=== PATIENT | female | born 1955 | race Caucasian/White ===

== ENCOUNTER 2017-03-16 11:13 | Emergency (ER) | payer BC ==
[~2017-03-16 11:13] MED LIST: INSU100V6 SQ; LEVO500T2 PO
[2017-03-16] MEDS ORDERED: PROM25TA14 PO (12:11)
[2017-03-16] MEDS ORDERED: CLIN300C11 PO (12:11)
[2017-03-16] MEDS ORDERED: HYDR-3820 PO (12:11)
[2017-03-16] MEDS ORDERED: FERR-84 PO (12:11)
[2017-03-16] MEDS ORDERED: BACL10TA PO (12:11)
== END 2017-03-16 11:47 | disposition left against medical advice (07) ==
LOC: EDUNIT# 11:13 → ER 11:15
DX: M54.5 Low back pain (principal); Z53.21 Procedure and treatment not carried out due to patient leaving prior to being seen by health care provider

== ENCOUNTER 2017-03-16 11:45 | Inpatient (IN) | payer OTHER, BC ==
[~2017-03-16] VITALS: Ht 154.9 cm; Wt 122.0 kg
[2017-03-16] MEDS ORDERED: HYDR-3820 PO (12:11)
[2017-03-16] MEDS ORDERED: BACL10TA PO (12:11)
[2017-03-16] MEDS ORDERED: PROM25TA14 PO (12:11)
[2017-03-16] MEDS ORDERED: CLIN300C11 PO (12:11)
[2017-03-16] MEDS ORDERED: FERR-84 PO (12:11)
[2017-03-16] MEDS ORDERED: CEFEPIME INJECTION 2,000 MG in NS (IVPB) 50 ML IV SCH (12:15)
[2017-03-16] MEDS ORDERED: LACTULOSE SYRUP 10GM/15ML (ENULOSE) 30ML UDC PO PRN (12:15)
[2017-03-16] MEDS ORDERED: VANCOMYCIN INJECTION 1,000 MG in NS (IVPB) 250 ML IV SCH (12:15)
[2017-03-16] MEDS ORDERED: ACETAMINOPHEN 500 MG TAB (TYLENOL) PO PRN (12:15)
[2017-03-16 12:45] LABS: BASOPHILS % (AUTO) 0 % (0-10); EOSINOPHILS # (AUTO) 0.2 10^3/uL (0.0-0.3); EOSINOPHILS % (AUTO) 2 % (0-10); LYMPHOCYTES # (AUTO) 1.2 X 10^3 (1.0-4.0); LYMPHOCYTES % (AUTO) 11 % (12-44); MEAN CORPUSCULAR HEMOGLOBIN 28 PG (25-34); MEAN CORPUSCULAR HGB CONC 31 G/DL (32-36); MEAN CORPUSCULAR VOLUME 89 FL (80-99); MEAN PLATELET VOLUME 8.2 FL (7.4-10.4); MONOCYTES # (AUTO) 0.8 X 10^3 (0.0-1.0); MONOCYTES % (AUTO) 8 % (0-12); NEUTROPHILS # (AUTO) 8.2 X 10^3 (1.8-7.8); NEUTROPHILS % (AUTO) 79 % (42-75); PLATELET COUNT 577 10^3/uL (130-400); RED BLOOD COUNT 3.27 10^6/uL (4.35-5.85); RED CELL DISTRIBUTION WIDTH 12.8 % (10.0-14.5); WHITE BLOOD COUNT 10.4 10^3/uL (4.3-11.0)
[2017-03-16 13:05] LABS: ALANINE AMINOTRANSFERASE 13 U/L (0-55); ALBUMIN 3.3 G/DL (3.2-4.5); ANION GAP 14 MMOL/L (5-14); ASPARTATE AMINO TRANSFERASE 13 U/L (5-34); BILIRUBIN,TOTAL 0.3 MG/DL (0.1-1.0); BLOOD UREA NITROGEN 11 MG/DL (7-18); BUN/CREATININE RATIO 15; CALCIUM 9.3 MG/DL (8.5-10.1); CARBON DIOXIDE 23 MMOL/L (21-32); CHLORIDE 102 MMOL/L (98-107); CREATININE SERUM 0.71 MG/DL (0.60-1.30); GFR ESTIMATED > 60; GLUCOSE 132 MG/DL (70-105); POTASSIUM 3.4 MMOL/L (3.6-5.0); SODIUM 139 MMOL/L (135-145); TOTAL PROTEIN 7.1 G/DL (6.4-8.2)
[2017-03-16 13:16] LABS: ERYTHROCYTE SEDIMENTATION RATE > 140 MM/HR (0-30)
[2017-03-16] MEDS ORDERED: MAGNESIUM 1 GM/100 ML IVPB 100 ML IV NR (13:22)
--- NOTE | 2017-03-16 13:23 | Diagnostic Imaging Report ---
INDICATION: PICC line placement. Portable chest 1:16 PM. Left upper extremity PICC line tip projects over the SVC at the cavoatrial junction. Heart size and pulmonary vascularity are normal. Lungs are clear. There are no effusions or pneumothoraces. IMPRESSION: No acute abnormalities in the chest. Dictated by: Dictated on workstation # [id number]
[2017-03-16 13:34] LABS: BILIRUBIN,URINE NEGATIVE (NEGATIVE); KETONES,URINE NEGATIVE (NEGATIVE); LEUKOCYTE ESTERASE ,URINE 1+ (NEGATIVE); NITRITE,URINE NEGATIVE (NEGATIVE); PH,URINE 8 (5-9); PROTEIN,URINE 1+ (NEGATIVE); UROBILINOGEN,URINE NORMAL (NORMAL)
[2017-03-16] MEDS: fentaNYL INJECTION 100 MCG/2 ML AMP IVP PRN ×5 (13:34→23:27)
[2017-03-16] MEDS: HYDROcodone/APAP 5 MG/325 MG (LORTAB) TAB PO PRN ×2 (13:34→20:15)
[2017-03-16 13:45] LABS: WBC,URINE RARE /HPF
[2017-03-16] MEDS: BACLOFEN 10 MG (LIORESAL) TAB PO SCH ×2 (14:16→20:15)
[2017-03-16] MEDS: POTASSIUM CL 10MEQ/50ML IVPB 50 ML IV SCH ×4 (14:17→17:59)
[2017-03-16] MEDS: NS IV 1000 ML 1,000 ML IV SCH (14:17)
[2017-03-16] MEDS ORDERED: VANCOMYCIN 2000 MG/NS 500 ML IVPB IV NR ×2 (14:30)
[2017-03-16] MEDS: ALPRAZolam 0.25 MG (XANAX) TAB PO PRN (15:52)
[2017-03-16 16:37] VITALS: BP 158/70
[2017-03-16] MEDS: inSUlin ASPART (NovoLOG) 1 UNIT/0.01 ML (CHARGE PER UNIT) SC SCH ×2 (16:46→21:14)
[2017-03-16] MEDS: IRON SUCROSE INJECTION 200 MG in NS (IVPB) 100 ML IV SCH (18:22)
[2017-03-16 19:57] VITALS: BP 160/78
--- NOTE | 2017-03-16 20:13 | History & Physicial ---
History of Present Illness History of Present Illness Reason for visit/HPI 61 y/o white female had lumbar fusion at [facility] on 03/01/17. She went home and was doing ok, then developed worsening pain and drainage. She was seen in [place] over the weekend and started on Keflex, she presents to the office today with still intolerable pain. She is having increased difficulty getting up and around. Date of Admission March 16, 2017 at 11:45 I consulted on this patient on 03/16/17 10:20 Attending Physician Kaitlynn Villalta MD Admitting Physician Heidi,Local Physician Consult Allergies and Home Medications Allergies Coded Allergies: cephalexin (Verified Allergy, Severe, RASH, 08/16/16) morphine (Verified Allergy, Severe, HIVES, 08/16/16) Penicillins (Verified Allergy, Unknown, 08/16/16) Home Medications Baclofen 10 Mg Tablet, 10 MG PO TID, (Reported) Clindamycin HCl 300 Mg Capsule, 300 MG PO Q6H for 10 Days, #40 (Reported) 10 DAY SUPPLY FILLED 03-12-17 Ferrous Sulfate 325 Mg Tablet, 325 MG PO HS, (Reported) Hydrocodone/Acetaminophen 1 Each Tablet, 1-2 TAB PO Q4H PRN for PAIN-MODERATE, ( Reported) Insulin Glargine,Hum.rec.anlog 100 Unit/1 Ml Vial, 30 UNIT SQ HS, (Reported) Promethazine HCl 25 Mg Tablet, 25 MG PO Q6H PRN for NAUSEA/VOMITING-2ND LINE, ( Reported) Past Zhltgsv-Wfcrfc-Hdovtj Hx Patient Social History Marrital Status: Alcohol Use: Denies Use Recreational Drug Use: No Smoking Status: Former Smoker Physical Abuse Screen: No Sexual Abuse: No Recent Foreign Travel: No Contact w/other who traveled: No Recent Hopitalizations: Yes ([place] [employer]) Recent Infectious Disease Expo: No Seasonal Allergies Seasonal Allergies: Yes (seasonal allergies, cat, grass) Surgeries HX Surgeries: Yes (TUBAL PREG, ) Surgeries: Appendectomy, Gallbladder, Hysterectomy Respiratory Hx Respiratory Disorders: Yes Cardiovascular Hx Cardiovascular Disorders: No Neurological Hx Neurological Disorders: No Genitourinary Hx Genitourinary Disorders: No Genitourinary Disorders: Kidney Stones Gastrointestinal Hx Gastrointestinal Disorders: No Gastrointestinal Disorders: Hiatal Hernia Musculoskeletal Hx Musculoskeletal Disorders: No Musculoskeletal Disorders: Arthritis, Chronic Back Pain Endocrine Hx Endocrine Disorders: Yes Endocrine Disorders: Diabetes, Insulin dep HEENT HX ENT Disorders: No Cancer Hx Cancer: No Psychosocial Hx Psychiatric Problems: No Family Medical History Significant Family History: No Pertinent Family Hx Constitutional: malaise, weakness EENTM: no symptoms reported Respiratory: no symptoms reported Cardiovascular: no symptoms reported Gastrointestinal: loss of appetite, nausea Genitourinary: no symptoms reported : No Musculoskeletal: back pain, joint pain, muscle stiffness, muscle cramps, muscle weakness Skin: no symptoms reported Psychiatric/Neurological: No Symptoms Reported Physical Exam Vital Signs Vital Sign - Last 12Hours 03/16/17 16:37 Temp 97.7 Pulse 103 Resp 12 B/P (MAP) 158/70 Pulse Ox 95 Capillary Refill : General Appearance: Moderate Distress Eyes: Bilateral Eye Normal Inspection Neck: Full Range of Motion Respiratory: Chest Non Tender, Normal Breath Sounds, No Accessory Muscle Use, No Respiratory Distress Cardiovascular: Regular Rate, Rhythm Gastrointestinal: Normal Bowel Sounds, Soft Back: Muscle Spasm, Vertebral Tenderness, Other (Serosanginous drainage from lumbar incision.) Extremity: Normal Capillary Refill Neurologic/Psychiatric: Alert, Oriented x3, No Motor/Sensory Deficits Assessment/Plan Assessment and Plan S/P Lumbar Fusion Lumbar Wound drainage possible wound infection Morbid Obesity BMI>50 Diabetes Asthma Plan Irrigation debridement tomorrow. Problems: Clinical Quality Measures DVT/VTE Risk/Contraindication: Risk Factor Score Per Nursin RFS Level Per Nursing on Admit: 4+=Very High Contraindications-Pharm: Other *list below* Other: needs surgery KAITLYNN VILLALTA MD March 16, 2017 20:13
[2017-03-16] MEDS: FERROUS SULF 325 MG (IRON) TAB PO SCH (20:15)
[2017-03-16] MEDS: POLYETHYLENE GLYCOL 17 GM (MIRALAX) PACK PO SCH (20:16)
[2017-03-16] MEDS ORDERED: BACLOFEN 10 MG (LIORESAL) TAB PO SCH (21:00)
[2017-03-16] MEDS: inSUlin DETERMIR 1 UNIT/0.01 ML (LEVEMIR) CHARGE PER UNIT SQ SCH (21:13)
[2017-03-16 23:15] VITALS: BP 177/88
[2017-03-17] MEDS: ONDANSETRON 4 MG/2 ML (SDV) Z0FRAN IVP PRN ×2 (00:06→20:52)
[2017-03-17] MEDS: CEFEPIME 2 GM/NS 50 ML IVPB IV SCH ×4 (00:25→12:03)
[2017-03-17] MEDS: fentaNYL INJECTION 100 MCG/2 ML AMP IVP PRN ×8 (00:25→19:58)
[2017-03-17] MEDS ORDERED: VANCOMYCIN 1500 MG/NS 500 ML IVPB IV SCH ×2 (02:00)
[2017-03-17] MEDS: HYDROmorphone (DILAUDID) 2 MG/ML VIAL IVP PRN ×8 (02:07→21:58)
[2017-03-17 04:00] VITALS: BP 139/83
[2017-03-17 06:10] LABS: BASOPHILS % (AUTO) 0 % (0-10); EOSINOPHILS # (AUTO) 0.3 10^3/uL (0.0-0.3); EOSINOPHILS % (AUTO) 4 % (0-10); LYMPHOCYTES # (AUTO) 1.3 X 10^3 (1.0-4.0); LYMPHOCYTES % (AUTO) 16 % (12-44); MEAN CORPUSCULAR HEMOGLOBIN 28 PG (25-34); MEAN CORPUSCULAR HGB CONC 31 G/DL (32-36); MEAN CORPUSCULAR VOLUME 90 FL (80-99); MEAN PLATELET VOLUME 8.2 FL (7.4-10.4); MONOCYTES # (AUTO) 0.8 X 10^3 (0.0-1.0); MONOCYTES % (AUTO) 10 % (0-12); NEUTROPHILS # (AUTO) 5.4 X 10^3 (1.8-7.8); NEUTROPHILS % (AUTO) 70 % (42-75); PLATELET COUNT 529 10^3/uL (130-400); RED BLOOD COUNT 3.21 10^6/uL (4.35-5.85); RED CELL DISTRIBUTION WIDTH 13.6 % (10.0-14.5); WHITE BLOOD COUNT 7.7 10^3/uL (4.3-11.0)
[2017-03-17 06:18] LABS: ALANINE AMINOTRANSFERASE 10 U/L (0-55); ALBUMIN 2.8 G/DL (3.2-4.5); ANION GAP 10 MMOL/L (5-14); ASPARTATE AMINO TRANSFERASE 12 U/L (5-34); BILIRUBIN,TOTAL 0.2 MG/DL (0.1-1.0); BLOOD UREA NITROGEN 9 MG/DL (7-18); BUN/CREATININE RATIO 14; CALCIUM 8.7 MG/DL (8.5-10.1); CARBON DIOXIDE 23 MMOL/L (21-32); CHLORIDE 110 MMOL/L (98-107); CREATININE SERUM 0.64 MG/DL (0.60-1.30); GFR ESTIMATED > 60; GLUCOSE 127 MG/DL (70-105); POTASSIUM 3.6 MMOL/L (3.6-5.0); SODIUM 143 MMOL/L (135-145); TOTAL PROTEIN 6.1 G/DL (6.4-8.2)
[2017-03-17] MEDS: inSUlin ASPART (NovoLOG) 1 UNIT/0.01 ML (CHARGE PER UNIT) SC SCH ×3 (06:29→19:49)
[2017-03-17 08:37] VITALS: BP 156/94
[2017-03-17] MEDS: POLYETHYLENE GLYCOL 17 GM (MIRALAX) PACK PO SCH ×2 (09:00→22:23)
[2017-03-17] MEDS: BACLOFEN 10 MG (LIORESAL) TAB PO SCH ×3 (09:00→21:57)
[2017-03-17] MEDS: NS IV 1000 ML 1,000 ML IV SCH ×2 (10:09→20:52)
--- NOTE | 2017-03-17 10:21 | Consultation-Hospitalist ---
HPI History of Present Illness: HPI/Chief Complaint CC: Drainage from lumbar spinal surgical site HPI: This is a 61 yoWF pt of Brad Andrade known to me from [facility] admission for lumbar spine surgery on 03/01/17. Pt has had a very slow recovery and began having redness and drainage. Pt was started on Keflex in [place] ER Tuesday and seen by Dr. Villalta in his office yesterday. She was a direct admit to [facility]. PICC line was placed and pt was empirically started on Vanc and Cefepime. WBC 7.7, Hgb 7.0, ESR 140, iron 12. 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 Lungs sound perfect Labs were discussed with the pt and she was informed that she will continue having iron treatments Pt has been having bowel movements Pt was informed that she will continue to antibiotics Pt states that she has not been comfortable and this has inhibited her movement. Pt states that she has been sticking to the bed Pt states that she has been sleeping well Scribed by Marion Miguel under the direct supervision of Dr. Cody. Source: patient, caregiver Exam Limitations: no limitations Date Seen 03/17/17 Attending Physician Ilir Villalta MD PCP No,Local Physician Referring Physician Date of Admission March 16, 2017 at 11:45 Home Medications & Allergies Home Medications Reviewed patient Home Medication Reconciliation Form Allergies Allergies Coded Allergies cephalexin (Verified Allergy, Severe, RASH, 08/16/16) morphine (Verified Allergy, Severe, HIVES, 08/16/16) Penicillins (Verified Allergy, Unknown, 08/16/16) Past Bfpnbfa-Qddzlw-Exssct Hx Patient Social History Marrital Status: Employed/Student: unemployed Alcohol Use: Denies Use Recreational Drug Use: No Smoking Status: Former Smoker Physical Abuse Screen: No Sexual Abuse: No Recent Foreign Travel: No Contact w/other who traveled: No Recent Hopitalizations: Yes ([place] [employer]) Recent Infectious Disease Expo: No Seasonal Allergies Seasonal Allergies: Yes (seasonal allergies, cat, grass) Surgeries HX Surgeries: Yes (TUBAL PREG, ) Surgeries: Appendectomy, Gallbladder, Hysterectomy Respiratory Hx Respiratory Disorders: Yes Respiratory Disorders: COPD, Sleep Apnea Cardiovascular Hx Cardiovascular Disorders: No Neurological Hx Neurological Disorders: No Genitourinary Hx Genitourinary Disorders: Yes Genitourinary Disorders: Kidney Stones Gastrointestinal Hx Gastrointestinal Disorders: Yes Gastrointestinal Disorders: Gastroesophageal Reflux, Hiatal Hernia Musculoskeletal Hx Musculoskeletal Disorders: Yes Musculoskeletal Disorders: Arthritis, Chronic Back Pain Endocrine Hx Endocrine Disorders: Yes Endocrine Disorders: Diabetes, Insulin dep HEENT HX ENT Disorders: No Cancer Hx Cancer: No Psychosocial Hx Psychiatric Problems: No Family Medical History Significant Family History: No Pertinent Family Hx Review of Systems Constitutional: see HPI EENTM: no symptoms reported Respiratory: no symptoms reported Cardiovascular: no symptoms reported Gastrointestinal: no symptoms reported Genitourinary: no symptoms reported Musculoskeletal: back pain Skin: see HPI Psychiatric/Neurological: No Symptoms Reported Physical Exam Physical Exam Vital Signs Vital Sign - Last 12Hours 03/16/17 16:37 Temp 97.7 Pulse 103 Resp 12 B/P (MAP) 158/70 Pulse Ox 95 Capillary Refill : General Appearance: No Apparent Distress, WD/WN, Chronically ill, Obese Eyes: Bilateral Eye Normal Inspection, Bilateral Eye PERRL HEENT: PERRL/EOMI, Normal ENT Inspection, Pharynx Normal Neck: Full Range of Motion, Normal Inspection, Non Tender, Supple, Carotid Bruit Respiratory: Chest Non Tender, Lungs Clear, Normal Breath Sounds, No Accessory Muscle Use, No Respiratory Distress Cardiovascular: Regular Rate, Rhythm, No Edema, No Gallop, No JVD, No Murmur, Normal Peripheral Pulses Gastrointestinal: Normal Bowel Sounds, No Organomegaly, No Pulsatile Mass, Non Tender, Soft Back: Decreased Range of Motion, Other (dressing intact spine) Extremity: Normal Capillary Refill, Normal Inspection, Normal Range of Motion, Non Tender, No Calf Tenderness, No Pedal Edema Neurologic/Psychiatric: Alert, Oriented x3, No Motor/Sensory Deficits, Normal Mood/Affect Skin: Normal Color, Warm/Dry Lymphatic: No Adenopathy Results Results/Procedures Lab Laboratory Tests 03/16/17 12:36 03/17/17 05:08 Assessment/Plan Admission Diagnosis Assessment: Lumbar spine surgical site drainage and inflammation empirically covering with IV antibiotics POD # 16 in need of I&D today Slow recovery and overall chronic debilitation Obstructive sleep apnea noncompliant with the Pap Hiatal hernia GERD History of peptic ulcers Osteoarthritis next number diabetes mellitus Chronic heart murmur Iron deficiency anemia COPD Assessment and Plan Plan: Possible disposition Tuesday once culture are completed Continue antibiotics empiric coverage Check into obtaining a firmer mattress after surgery Check labs in am Rehab eval I&D today IV iron Clinical Quality Measures DVT/VTE Risk/Contraindication: Risk Factor Score Per Nursin RFS Level Per Nursing on Admit: 4+=Very High Contraindications-Pharm: Other *list below* Other: needs surgery SARAH CODY DO Mar 17, 2017 10:21
[2017-03-17] MEDS ORDERED: LACTATED RINGERS 1,000 ML IV PRN (11:08)
[2017-03-17 11:50] VITALS: BP 141/77
[2017-03-17] MEDS ORDERED: VANCOMYCIN 1000 MG/VIAL ONE (12:46)
[2017-03-17] MEDS ORDERED: GENTAMICIN 40 MG/ML 2 ML INJ SDV ONE ×2 (12:46→17:05)
[2017-03-17] MEDS ORDERED: TROUGH ORDER-PHARMACY XX NR (13:00)
[2017-03-17] MEDS ORDERED: VANCOMYCIN 1250 MG/NS 250 ML IVPB IV SCH ×2 (14:00)
[2017-03-17] MEDS ORDERED: MIDAZOLAM 2 MG/2 ML (VERSED) VIAL ONE (14:46)
[2017-03-17] MEDS ORDERED: proPOfol 200 MG/20 ML (DIPRIVAN) VIAL IV ONE (14:46)
[2017-03-17] MEDS ORDERED: fentaNYL INJECTION 100 MCG/2 ML AMP ONE (14:46)
[2017-03-17] MEDS ORDERED: SEVOFLURANE (ULTANE) 15 ML INHAL SOLN ONE ×2 (14:46→17:31)
[2017-03-17] MEDS ORDERED: ONDANSETRON 4 MG/2 ML (SDV) Z0FRAN ONE (14:46)
[2017-03-17] MEDS ORDERED: ROCURONIUM 50 MG/5 ML (ZEMURON) VIAL IV ONE (14:46)
[2017-03-17] MEDS ORDERED: LACTATED RINGERS 1,000 ML IV ONE (14:46)
[2017-03-17] MEDS ORDERED: LIDOCAINE PF 2% 5 ML (XYLOCAINE) VIAL ONE (14:46)
[2017-03-17 15:25] VITALS: BP 156/77
[2017-03-17] MEDS ORDERED: MEPERIDINE (DEMEROL) INJ 50 MG/ML ONE (15:57)
--- NOTE | 2017-03-17 16:39 | Progress Note-Pre Operative ---
Pre-Operative Progress Note H&P Reviewed The H&P was reviewed, patient examined and no changes noted. Date H&P Reviewed: Mar 17, 2017 Time H&P Reviewed: 16:39 Pre-Operative Diagnosis: Lumbar Wound Infection KAITLYNN LAFLEUR MD Mar 17, 2017 4:39 pm
--- NOTE | 2017-03-17 17:50 | Progress Note-Post Operative ---
Post-Operative Progess Note Surgeon (s)/Network Engineering Advisor (s) Surgeon KAITLYNN LAFLEUR MD Network Engineering Advisor: Jason Alcala Pre-Operative Diagnosis Lumbar Wound Infection Post-Operative Diagnosis Same Procedure & Operative Findings Date of Procedure 03/17/17 Procedure Performed/Findings Irrigation and Debridement of Posterior lumbar wound. Turbid Fluid Anesthesia Type GETA Estimated Blood Loss Estimated blood loss (mL): Minimal Specimens/Packing Specimens Removed Cultures Packing: Kerlix superficial KAITLYNN LAFLEUR MD Mar 17, 2017 5:50 pm
[2017-03-17] MEDS ORDERED: ONDANSETRON 4 MG/2 ML (SDV) Z0FRAN IVP PRN (18:00)
[2017-03-17] MEDS: fentaNYL INJECTION 100 MCG/2 ML AMP ONE (18:26)
[2017-03-17] MEDS: MEPERIDINE (DEMEROL) INJ 50 MG/ML IVP PRN ×2 (18:35→18:41)
[2017-03-17 19:00] VITALS: BP 187/83
[2017-03-17] MEDS: FERROUS SULF 325 MG (IRON) TAB PO SCH (21:57)
[2017-03-17] MEDS: ALPRAZolam 0.25 MG (XANAX) TAB PO PRN (21:57)
[2017-03-17] MEDS: inSUlin DETERMIR 1 UNIT/0.01 ML (LEVEMIR) CHARGE PER UNIT SQ SCH (23:27)
[2017-03-18] MEDS: HYDROmorphone (DILAUDID) 2 MG/ML VIAL IVP PRN ×8 (00:02→22:55)
[2017-03-18] MEDS: inSUlin ASPART (NovoLOG) 1 UNIT/0.01 ML (CHARGE PER UNIT) SC SCH ×5 (00:33→21:20)
[2017-03-18 00:52] VITALS: BP 173/84
[2017-03-18] MEDS: CEFEPIME 2 GM/NS 50 ML IVPB IV SCH ×4 (01:02→12:44)
[2017-03-18] MEDS: HYDROcodone/APAP 5 MG/325 MG (LORTAB) TAB PO PRN ×5 (02:06→22:48)
[2017-03-18] MEDS: VANCOMYCIN 1250 MG/NS 250 ML IVPB IV SCH ×4 (02:22→13:56)
[2017-03-18 04:00] VITALS: BP 129/72
--- NOTE | 2017-03-18 05:47 | OPERATIVE REPORT ---
DATE OF SERVICE: 03/17/2017 PREOPERATIVE DIAGNOSES: Suspected lumbar wound infection, diabetes, morbid obesity with BMI greater than 50. POSTOPERATIVE DIAGNOSES: Suspected lumbar wound infection, diabetes, morbid obesity with BMI greater than 50, pathology pending. PROCEDURES PERFORMED: Irrigation and debridement of lumbar wound superficial and deep posterior. DATE AND TIME OF SURGERY: Please see anesthesia record. SURGEON: Ilir Villalta M.D. SECURITY INFRASTRUCTURE ENGINEER: REYNALDO Perez. ROLE OF BOMB SQUAD COMMANDER: Aid in retraction in the procedure, suction of neural elements, and wound closure. ANESTHESIA: General endotracheal. ESTIMATED BLOOD LOSS: Minimal. INTRAVENOUS FLUID: Please see anesthesia record. ANTIBIOTICS: Ancef. COMPLICATIONS: None. INDICATIONS OF PROCEDURE: The patient is a 61-year-old female who had a previous lumbar fusion. She has developed wound drainage, increasing pain concerning for infection. After risks, benefits, and alternatives discussed, she would like to proceed with wound exploration and debridement. DESCRIPTION OF PROCEDURE: The patient was taken to the preoperative holding area and brought back to the operative suite after adequate induction of general anesthetic. Preoperative antibiotics were given, turned prone on the Kristian table with careful padding to all extremities, sterilely prepped and draped posterior lumbar spine. Attention was directed to the midline. Incision was made overlying the previous incision which was opened. Turbid fluid was encountered. It was sent for cultures. Wound was then debrided and pulse lavage irrigation was utilized and then the deep fascia was opened and further fluid was found deep to the hardware. Cultures were obtained of this as well. Pulse lavage irrigation of the entire thing, curetting of any devitalized tissue muscle, all the way down to the fusion bed. Once debridement was sufficient, further pulse lavage irrigation with gentamicin, enhanced irrigant was utilized and then vancomycin powder was packed deep. The deep fascia was closed with 0 PDS suture. The superficial wound was packed and the patient was transferred to the recovery room in stable condition having tolerated the procedure well. Job ID: [id number] DocumentID: [id number] Dictated Date: 03/17/2017 17:48:24 Rubber Molder Date: 03/18/2017 03:31:52 Dictated By: ILIR VILLALTA MD [facility]
[2017-03-18 06:55] LABS: BASOPHILS % (AUTO) 0 % (0-10); EOSINOPHILS # (AUTO) 0.4 10^3/uL (0.0-0.3); EOSINOPHILS % (AUTO) 4 % (0-10); LYMPHOCYTES % (AUTO) 12 % (12-44); MEAN CORPUSCULAR HEMOGLOBIN 28 PG (25-34); MEAN CORPUSCULAR HGB CONC 30 G/DL (32-36); MEAN CORPUSCULAR VOLUME 92 FL (80-99); MEAN PLATELET VOLUME 8.2 FL (7.4-10.4); MONOCYTES # (AUTO) 0.8 X 10^3 (0.0-1.0); MONOCYTES % (AUTO) 10 % (0-12); NEUTROPHILS # (AUTO) 6.2 X 10^3 (1.8-7.8); NEUTROPHILS % (AUTO) 74 % (42-75); PLATELET COUNT 432 10^3/uL (130-400); RED BLOOD COUNT 3.04 10^6/uL (4.35-5.85); RED CELL DISTRIBUTION WIDTH 13.7 % (10.0-14.5); WHITE BLOOD COUNT 8.4 10^3/uL (4.3-11.0)
[2017-03-18 07:09] LABS: ALANINE AMINOTRANSFERASE 9 U/L (0-55); ALBUMIN 2.5 G/DL (3.2-4.5); ANION GAP 7 MMOL/L (5-14); ASPARTATE AMINO TRANSFERASE 10 U/L (5-34); BILIRUBIN,TOTAL 0.3 MG/DL (0.1-1.0); BLOOD UREA NITROGEN 7 MG/DL (7-18); BUN/CREATININE RATIO 12; CARBON DIOXIDE 23 MMOL/L (21-32); CHLORIDE 111 MMOL/L (98-107); CREATININE SERUM 0.59 MG/DL (0.60-1.30); GFR ESTIMATED > 60; GLUCOSE 98 MG/DL (70-105); POTASSIUM 3.6 MMOL/L (3.6-5.0); SODIUM 141 MMOL/L (135-145); TOTAL PROTEIN 5.6 G/DL (6.4-8.2)
[2017-03-18 07:50] VITALS: BP 133/79
[2017-03-18] MEDS: POLYETHYLENE GLYCOL 17 GM (MIRALAX) PACK PO SCH ×2 (08:06→20:08)
[2017-03-18] MEDS: BACLOFEN 10 MG (LIORESAL) TAB PO SCH ×3 (08:06→20:07)
[2017-03-18] MEDS: meTOprolol TARTRATE 25 MG (LOPRESSOR) TABLET PO SCH ×2 (09:31→20:07)
[2017-03-18] MEDS: diphenhydrAMINE 50 MG/ML INJ (BENADRYL) IVP PRN ×2 (10:09→19:14)
--- NOTE | 2017-03-18 11:00 | Progress Note-Hospitalist ---
Progress Note HPI/CC on Admission CC: Drainage from lumbar spinal surgical site HPI: This is a 61 yoWF pt of Brad Andrade known to me from [facility] admission for lumbar spine surgery on 03/01/17. Pt has had a very slow recovery and began having redness and drainage. Pt was started on Keflex in [place] ER Tuesday and seen by Dr. Villalta in his office yesterday. She was a direct admit to [facility]. PICC line was placed and pt was empirically started on Vanc and Cefepime. WBC 7.7, Hgb 7.0, ESR 140, iron 12. 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 Lungs sound perfect Labs were discussed with the pt and she was informed that she will continue having iron treatments Pt has been having bowel movements Pt was informed that she will continue to antibiotics Pt states that she has not been comfortable and this has inhibited her movement. Pt states that she has been sticking to the bed Pt states that she has been sleeping well Scribed by Marion Miguel under the direct supervision of Dr. Cody. Progress Notes/Assess & Plan Date Seen 03/18/17 Admission Dx/Process Assessment: Lumbar spine surgical site drainage and inflammation empirically covering with IV antibiotics POD # 16 in need of I&D today Slow recovery and overall chronic debilitation Obstructive sleep apnea noncompliant with the Pap Hiatal hernia GERD History of peptic ulcers Osteoarthritis next number diabetes mellitus Chronic heart murmur Iron deficiency anemia COPD Diagonsis/Assessment & Plan Chart Review: Wound Culture: gram positive rods and cocci PICC Line Op Report: superficial wound, packed No Fever Vital stable WBC 8.4 Hgb 8.4 CMP normal Review: Ambar Continue culture treatment Six weeks treatment recommended for IV antibiotics Rehab on Tuesday or a possible penitentiary Regroup on Tuesday aircraft quality control inspector: HR a little high today, possibly from moving around in the bed She is not septic I am going to heplock her fluid I would like to do some Lopressor PO Patient Interview: Pt still sore from having a bath, feeling better Pt states that sometimes she aggravates the nursing staff because of what she needs I explained that this was a superficial wound and that she will be on antibiotics until the culture is back Pt will slowly be ambulated up and down the hallway today to get her up and moving Lungs were clear to auscultation bilaterally Physical Exam stable Pt states that she has been working to roll back and forth while she is bed She feels that she is improving and that the nurses believe the same The pt believes that she is having a hard time She believes that she will need some rehab and expects to be here over the weekend and follow-up with rehab I explained that the lab work looked good today and that we will continue on the current treatment until the culture comes back AFVSS, Pleasant, improved overall Tachycardic 110 regular, CTAB no rales noted No edema Assessment: Lumbar spine surgical site drainage and inflammation empirically covering with IV antibiotics POD # 17 s/p I&D yesterday POD # 1 Slow recovery and overall chronic debilitation Obstructive sleep apnea noncompliant with CPAP Hiatal hernia GERD History of peptic ulcers Osteoarthritis next number diabetes mellitus Chronic heart murmur Iron deficiency anemia COPD Tachycardia likely due to deconditioning Plan: Possible disposition Tuesday once culture are completed Continue antibiotics empiric coverage Check labs in am Rehab eval IV iron PT/OT Get up and moving Lopressor PO - Metoprolol 25 BID IV Benadryl for itching prn Scribed by Marion Miguel under the direct supervision of Dr. Cody. SARAH CODY DO Mar 18, 2017 11:00
[2017-03-18 12:43] VITALS: BP 163/83
[2017-03-18] MEDS: IRON SUCROSE INJECTION 200 MG in NS (IVPB) 100 ML IV SCH (13:20)
--- NOTE | 2017-03-18 15:08 | Physical Therapy Evaluation ---
PT Evaluation-General Medical Diagnosis Admission Date March 16, 2017 at 11:45 Medical Diagnosis: abscess lumbar spine Onset Date: March 16, 2017 Therapy Diagnosis Therapy Diagnosis: debility Height/Weight Height (Feet): 5 Height (Inches): 1.00 Weight (Pounds): 261 Weight (Ounces): 6.0 Precautions Precautions/Isolations: Fall Prevention, Standard Precautions Weight Bear Status Weight Bearing Restriction: Weight Bearing/Tolerated Location Restriction: LE Bilateral Referral Physician: Dave Reason for Referral: Evaluation/Treatment Medical History Pertinent Medical History: COPD, DM, GERD Additional Medical History morbidly obese Current History lumbar fusion PSI 03/01/17; slow recovery Reviewed History: Yes Social History Home: Single Level Current Living Status: Spouse Prior/Core FIM Prior Level of Function Functional [place] Measure 0=Not Assessed/NA 4=Minimal Assistance 1=Total Assistance 5=Supervision or Setup 2=Maximal Assistance 6=Modified [place] 3=Moderate Assistance 7=Complete [place] Bed Mobility: 3 Transfers (B,C,W/C) (FIM): 3 Gait: 3 Locomotion: 3 very inactive and and limited mobility PLOF; spouse assist PLOF PT Evaluation-Current Subjective Patient is in bed, flat in supine position. Patient is yelling and screaming and demanding to move, however, she does not want anyone to touch her. Patient will only allow spouse "Elly" to assist her with bed mobility and to stand. Pain Numeric Pain Scale: 10-Worst Possible Pain Location: Medial, Upper, Lower Location Body Site: Back Pain Description: Pressure, Acute, Chronic Pt/Family Goals return to home Objective Patient Orientation: Normal For Age Problem Solving: Fair Attachments: Posey Catheter, IV ROM/Strength ROM Lower Extremities bilateral WFL (limited due to obesity) Strenght Lower Extremities no formal testing, however, WFL with demonstrating ability to perform sit to stand and ambulate short distances Integumentary/Posture Integumentary refer to nursing notes Bladder Incontinence: Posey Cath Posture flexed hip posture Neuromuscular (Tone, Coordination, Reflexes) grossly intact Sensory Vision: Functional Hearing: Functional Sensation Right Lower Extremit: Intact Sensation Left Lower Extremity: Intact Transfers Functional [place] Measure 0=Not Assessed/NA 4=Minimal Assistance 1=Total Assistance 5=Supervision or Setup 2=Maximal Assistance 6=Modified [place] 3=Moderate Assistance 7=Complete [place] Transfers (B, C, W/C) (FIM): 3 Scootin Rollin Supine to/from Sit: 3 Sit to/from Stand: 3 patient requires much encouragement to complete tasks due to pain and patient's refusal to follow direction Gait Mode of Locomotion: Walk Anticipated Mode of Locomotion: Walk Gait (FIM): 1 Distance (FIM): 1=up to 49 ft Distance: 10' Gait Level of Assist: 5 Gait Persons Needed: 1 Gait Assistive Device: FWW Comments/Gait Description functional gait, patient limits self Balance Sitting Static: Normal Sitting Dynamic: Normal Standing Static: Normal Standing Dynamic: Normal Assessment/Needs 61 y.o. inactive female, will benefit from short term skilled PT to address functional mobility. Patient may be difficult due to patient demands things to be done her way and no other way and will yell and scream if it is not done. Patient will perform tasks with spouse and does not want anyone else to assist or touch her. Rehab Potential: Fair Post Rehab Potential-Barriers: morbid obesity and inactivity PT Fpc Goals Fpc Goals PT District Court Reporter Goals Time Frame: Mar 25, 2017 Transfers (B,C,W/C) (FIM): 4 Gait (FIM): 1 Gait distance (FIM): 1=up to 49 ft Distance: 50' Gait Level of Assist: 5 Gait Assistive Device: FWW PT Plan Problem List Problem List: Activity Tolerance, Functional Strength, Safety, Balance, Gait, Transfer, Bed Mobility, ROM Treatment/Plan Treatment Plan: Continue Plan of Care Treatment Plan: Bed Mobility, Education, Functional Activity [place], Functional Strength, Gait, Safety, Therapeutic Exercise, Transfers Treatment Duration: Mar 25, 2017 # of days/week 6 Visits Per Week: 6 Pt/Family Agrees w/Plan: Yes Safety Risks/Education Patient Education: Safety Issues Teaching Recipient: Patient, Family, Significant Other Teaching Methods: Discussion Response to Teaching: Reinforcement Needed Discharge Recommendations Therapy D/C Recommendations: Home w/ Family Support Time/GCodes Time In: 1410 Time Out: 1440 Total Billed Treatment Time: 30 Total Billed Treatment 1 visit EVC 15 min FA 15 min MILAGROS BENEDICT PT Mar 18, 2017 15:08
--- NOTE | 2017-03-18 15:16 | Occupational Therapy Eval ---
OT Evaluation-General/PLF Medical Diagnosis Admission Date March 16, 2017 at 11:45 Medical Diagnosis: abscess lumbar spine Onset Date: March 16, 2017 Therapy Diagnosis Therapy Diagnosis: decreased self care, decr funct mobility, decr strength Height/Weight Height (Feet): 5 Height (Inches): 1.00 Weight (Pounds): 261 Weight (Ounces): 6.0 Precautions Precautions/Isolations: Fall Prevention, Standard Precautions Safety Interventions: Bed Exit Alarm Weight Bear Status Weight Bearing Restriction: Weight Bearing/Tolerated Location Restriction: LE Bilateral Referral Physician: Dave Referral Reason: Evaluation/Treatment Medical History Pertinent Medical History: Arthritis, COPD, DM, GERD, OA Additional Medical History Hx kidney stones, hiatal hernia. Chronic back pain. Morbid obesity. Asthma, sleep apnea. Current History Had lumbar fusion 03-01-17. Developed increased pain and drainange. I and D on 03-17-17 Social History Home: Single Level Current Living Status: Spouse ADL-Prior Level of Function ADL PLOF Comments Pt reported that she was able to manage all of her basic self care needs prior to her back surgery. 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 DME/Equipment Comments Unknown DME at home OT Current Status Subjective Pt seen in room, up in bed, agreeable to OT. Reported pain 10/10 in legs, back. Nursing aware. "I want to get up but no one listens to me to help me get up." Appearance Alert, talkative. Pt perseverated on why she couldn't get up - can't slide legs on sheets, can't get out of hole in middle of bed, can't lift her legs, etc. Mental Status/Objective Patient Orientation: Person, Place, Time, Situation Attachments: Posey Catheter, IV Current Dentures/Partials: No (no teeth) Upper Extremity ROM Grossly WFL bilat Upper Extremity Sensation Pt reported bilat carpal tunnel "I sharri" Upper Extremity Strength Grossly 4/5 bilat ADL-Treatment ADL-Current OT arranged for pt to switch out to bed with thicker mattress. Also put top sheet on bed as bottom sheet because it is not knit fabric and will have less friction. OT stayed to help make environmental changes in room while pt got out of bed with PT. Pt does have bariatric BSC in room Functional [place] Measure 0=Not Assessed/NA 4=Minimal Assistance 1=Total Assistance 5=Supervision or Setup 2=Maximal Assistance 6=Modified [place] 3=Moderate Assistance 7=Complete IndependenceIRFPAI Quality Coding Scale 6 Independent with activity with or without an assistive device 5 Patient requires set up or clean up by helper. Patient completes activity by themselves 4 Supervision or touching assist (CGA). [place] provide cues , steadying assist 3 The helper provides less than half the effort to complete the activity 2 The helper provides more than half the effort to complete the activity 1 Dependent. The helper does all the effort to complete an activity 7 Patient refused to complete or attempt activity 9 The patient did not perform the activity before the current illness or injury 88 Not attempted due to Medical conditions or safety concerns Education OT Patient Education: Correct positioning, Modified ADL techniques, Purpose of tx/functional activities, Rehab process Teaching Recipient: Patient Teaching Methods: Discussion Response to Teaching: Verbalize Understanding OT Longterm Goals Signalman Goals Time Frame: Apr 08, 2017 Eating (FIM): 6 Grooming(FIM): 6 Bathing(FIM): 6 Upper Body Dressing(FIM): 6 Lower Body Dressing(FIM): 6 Toileting(FIM): 6 Toilet/Commode Transfer(FIM): 6 Shower Transfer(FIM): 6 Additional Goals: 1-Demonstrate ADL Tasks, 2-Verbalize Understanding, 3- ImproveStrength/[place] 1=Demonstrate adherence to instructed precautions during ADL tasks. 2=Patient will verbalize/demonstrate understanding of assistive devices/ modifications for ADL. 3=Patient will improve strength/tolerance for activity to enable patient to perform ADL's. OT Education/Plan Problem List/Assessment Assessment: Decreased UE Strength, Dependent Transfers, Impaired Bed Mobility, Impaired Self-Care Skills Pt would benefit from skilled OT to increase her independence in basic self care to allow her to safely return home to live with her and to decrease caregiver burden. Discharge Recommendations Plan/Recommendations: Continue POC Therapy D/C Recommendations: Acute Rehab Target Placement home Treatment Plan/Plan of Care Treatment,Training & Education: Yes Patient would benefit from OT for education, treatment and training to promote independence in ADL's, mobility, safety and/or upper extremity function for ADL' s. Plan of Care: ADL Retraining, Functional Mobility, UE Funct Exercise/Act, UE Neuromus Re-Ed/Coord Treatment Duration: Apr 08, 2017 # of days/week 5-6 Visits Per Week: 5-6 Agreement: Yes Rehab Potential: Good Time/GCodes Start Time: 13:35 Stop Time: 14:00 Total Time Billed (hr/min): 25 Billed Treatment Time visit, 15 minutes evaluation moderate intensity, 10 minutes ADL PRATIK HARVEY OT Mar 18, 2017 15:16
[2017-03-18 15:44] VITALS: BP 145/85
--- NOTE | 2017-03-18 15:59 | Anesthesia-General Post-Op ---
General Patient Condition Mental Status/LOC: Same as Preop Cardiovascular: Satisfactory Nausea/Vomiting: Absent Respiratory: Satisfactory Pain: Controlled Complications: Absent Post Op Complications Complications None Follow Up Care/Instructions Patient Instructions None needed. Anesthesia/Patient Condition Patient Condition Patient is doing well, no complaints, stable vital signs, no apparent adverse anesthesia problems. No complications reported per nursing. NIKKI ARROYO CRNA Mar 18, 2017 15:59
[2017-03-18] MEDS: FERROUS SULF 325 MG (IRON) TAB PO SCH (20:07)
[2017-03-18] MEDS: inSUlin DETERMIR 1 UNIT/0.01 ML (LEVEMIR) CHARGE PER UNIT SQ SCH (20:09)
[2017-03-19] VITALS: BP 147/68
[2017-03-19] MEDS: CEFEPIME 2 GM/NS 50 ML IVPB IV SCH ×2 (01:01)
[2017-03-19] MEDS: HYDROmorphone (DILAUDID) 2 MG/ML VIAL IVP PRN ×4 (01:36→21:33)
[2017-03-19] MEDS: VANCOMYCIN 1250 MG/NS 250 ML IVPB IV SCH ×4 (02:12→14:18)
[2017-03-19] MEDS: ALPRAZolam 0.25 MG (XANAX) TAB PO PRN ×2 (03:31→18:03)
[2017-03-19] MEDS: diphenhydrAMINE 50 MG/ML INJ (BENADRYL) IVP PRN (03:36)
[2017-03-19 04:00] VITALS: BP 153/73
[2017-03-19] MEDS: inSUlin ASPART (NovoLOG) 1 UNIT/0.01 ML (CHARGE PER UNIT) SC SCH ×4 (06:00→21:24)
[2017-03-19 06:19] LABS: BASOPHILS % (AUTO) 0 % (0-10); EOSINOPHILS # (AUTO) 0.4 10^3/uL (0.0-0.3); EOSINOPHILS % (AUTO) 3 % (0-10); LYMPHOCYTES # (AUTO) 1.4 X 10^3 (1.0-4.0); LYMPHOCYTES % (AUTO) 13 % (12-44); MEAN CORPUSCULAR HEMOGLOBIN 28 PG (25-34); MEAN CORPUSCULAR HGB CONC 30 G/DL (32-36); MEAN CORPUSCULAR VOLUME 92 FL (80-99); MEAN PLATELET VOLUME 8.2 FL (7.4-10.4); MONOCYTES # (AUTO) 1.2 X 10^3 (0.0-1.0); MONOCYTES % (AUTO) 11 % (0-12); NEUTROPHILS # (AUTO) 7.8 X 10^3 (1.8-7.8); NEUTROPHILS % (AUTO) 73 % (42-75); PLATELET COUNT 445 10^3/uL (130-400); RED BLOOD COUNT 3.26 10^6/uL (4.35-5.85); RED CELL DISTRIBUTION WIDTH 13.7 % (10.0-14.5); WHITE BLOOD COUNT 10.8 10^3/uL (4.3-11.0)
[2017-03-19 06:34] LABS: ALANINE AMINOTRANSFERASE 10 U/L (0-55); ALBUMIN 2.9 G/DL (3.2-4.5); ANION GAP 10 MMOL/L (5-14); ASPARTATE AMINO TRANSFERASE 9 U/L (5-34); BILIRUBIN,TOTAL 0.4 MG/DL (0.1-1.0); BLOOD UREA NITROGEN 6 MG/DL (7-18); BUN/CREATININE RATIO 9; CALCIUM 9.1 MG/DL (8.5-10.1); CARBON DIOXIDE 27 MMOL/L (21-32); CHLORIDE 105 MMOL/L (98-107); CREATININE SERUM 0.65 MG/DL (0.60-1.30); GFR ESTIMATED > 60; POTASSIUM 3.6 MMOL/L (3.6-5.0); SODIUM 142 MMOL/L (135-145); TOTAL PROTEIN 6.6 G/DL (6.4-8.2)
[2017-03-19 06:36] LABS: GLUCOSE 52 MG/DL (70-105)
--- NOTE | 2017-03-19 07:44 | Progress Note (SOAP) ---
Subjective Time Seen by Provider: 07:45 Subjective/Events-last exam Pt still complaining of a lot of pain. States that it hurts with any movements and having increased spasms. Hasn't been out of bed. Was sleeping when I entered the room, but still complaining of 10+ pain. Objective Exam Vital Signs Date Time Temp Pulse Resp B/P (MAP) Pulse Ox O2 Delivery O2 Flow Rate FiO2 03/19/17 04:00 97.6 100 18 153/73 95 03/19/17 00:00 147/68 03/19/17 00:00 98.5 104 18 94 03/18/17 20:20 98.1 108 18 94 03/18/17 15:44 98.2 106 18 145/85 94 03/18/17 12:43 99.4 105 22 163/83 96 03/18/17 08:45 119 03/18/17 07:50 97.9 124 22 133/79 93 I & O 03/19/17 07:00 Intake Total 1682.5 ml Output Total 2475 ml Balance -792.5 ml Capillary Refill : General Appearance: No Apparent Distress, WD/WN Respiratory: No Accessory Muscle Use Neurologic/Psychiatric: Alert, Oriented x3, No Motor/Sensory Deficits Results Lab Laboratory Tests 03/18/17 10:32: Glucometer 105 03/18/17 16:01: Glucometer 152H 03/18/17 20:19: Glucometer 159H 03/19/17 06:08: White Blood Count 10.8, Red Blood Count 3.26L, Hemoglobin 9.1L, Hematocrit 30L, Mean Corpuscular Volume 92, Mean Corpuscular Hemoglobin 28, Mean Corpuscular Hemoglobin Concent 30L, Red Cell Distribution Width 13.7, Platelet Count 445H, Mean Platelet Volume 8.2, Neutrophils (%) (Auto) 73, Lymphocytes (%) (Auto) 13, Monocytes (%) (Auto) 11, Eosinophils (%) (Auto) 3, Basophils (%) (Auto) 0, Neutrophils # (Auto) 7.8, Lymphocytes # (Auto) 1.4, Monocytes # (Auto) 1.2H, Eosinophils # (Auto) 0.4H, Basophils # (Auto) 0.0, Sodium Level 142, Potassium Level 3.6, Chloride Level 105, Carbon Dioxide Level 27, Anion Gap 10, Blood Urea Nitrogen 6L, Creatinine 0.65, Estimat Glomerular Filtration Rate > 60, BUN/ Creatinine Ratio 9, Glucose Level 52*L, Calcium Level 9.1, Total Bilirubin 0.4, Aspartate Amino Transf (AST/SGOT) 9, Alanine Aminotransferase (ALT/SGPT) 10, Alkaline Phosphatase 93, Total Protein 6.6, Albumin 2.9L 03/19/17 07:01: Glucometer 67L Microbiology 03/16/17 Blood Culture - Preliminary, Resulted No growth 03/16/17 MRSA Screen - Final, Complete MRSA not isolated 03/17/17 Gram Stain - Final, Resulted 03/17/17 Anaerobic Culture, Resulted Pending 03/17/17 Surgical Culture - Preliminary, Resulted No growth Assessment/Plan Assessment/Plan Assess & Plan/Chief Complaint S/P Lumbar fusion and subsequent I&D of lumbar wound Continue pain control. Strongly encouraged ambulation, needs to get up and move some. Will change baclofen to 20 mg Clinical Quality Measures DVT/VTE Risk/Contraindication: Risk Factor Score Per Nursin RFS Level Per Nursing on Admit: 4+=Very High Contraindications-Pharm: Other *list below* Other: needs surgery AVINASH MARTINEZ Mar 19, 2017 07:44
[2017-03-19] MEDS: HYDROcodone/APAP 5 MG/325 MG (LORTAB) TAB PO PRN ×3 (07:52→18:03)
[2017-03-19 08:20] VITALS: BP 158/88
[2017-03-19] MEDS: BACLOFEN 10 MG (LIORESAL) TAB PO SCH ×3 (09:04→21:33)
[2017-03-19] MEDS: meTOprolol TARTRATE 25 MG (LOPRESSOR) TABLET PO SCH ×2 (09:04→18:03)
[2017-03-19] MEDS: POLYETHYLENE GLYCOL 17 GM (MIRALAX) PACK PO SCH ×2 (09:52→21:03)
--- NOTE | 2017-03-19 11:21 | Progress Note-Hospitalist ---
Subjective HPI/CC On Admission Time Seen by Provider: 10:25 CC: Drainage from lumbar spinal surgical site HPI: This is a 61 yoWF pt of Brad Andrade known to me from [facility] admission for lumbar spine surgery on 03/01/17. Pt has had a very slow recovery and began having redness and drainage. Pt was started on Keflex in [place] ER Tuesday and seen by Dr. Villalta in his office yesterday. She was a direct admit to [facility]. PICC line was placed and pt was empirically started on Vanc and Cefepime. WBC 7.7, Hgb 7.0, ESR 140, iron 12. 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 Lungs sound perfect Labs were discussed with the pt and she was informed that she will continue having iron treatments Pt has been having bowel movements Pt was informed that she will continue to antibiotics Pt states that she has not been comfortable and this has inhibited her movement. Pt states that she has been sticking to the bed Pt states that she has been sleeping well Scribed by Marion Miguel under the direct supervision of Dr. Acosta. Date Seen 03/19/17 Subjective/Events-last exam patient complains primarily of itching this morning. She says no one has really told her what was really wrong. I once again discussed with her that she is had a infection at the incision site and she had that opened and cleaned out now she'll be on antibiotics for approximately 6 weeks. SHe says that she just doesn't remember when people tell her things because of the pain medication. SHe notes that she's trying to turn over and really interested in getting out of bed and going back to work. Review of Systems Musculoskeletal: back pain, foot pain Neurological: Other (left foot pain), Weakness Objective Exam Vital Signs Vital Sign - Last 12Hours 03/16/17 16:37 Temp 97.7 Pulse 103 Resp 12 B/P (MAP) 158/70 Pulse Ox 95 Capillary Refill : General Appearance: No Apparent Distress, Obese, Other (laying flat) HEENT: Normal ENT Inspection Neck: Limited Range of Motion Respiratory: Chest Non Tender, Lungs Clear, Normal Breath Sounds, No Accessory Muscle Use Cardiovascular: Regular Rate, Rhythm, Systolic Murmur (2/6) Gastrointestinal: No Organomegaly, Non Tender, Soft Extremity: Pedal Edema, Other (tender dorsum left foot no inflammation or erythema) Neurologic/Psychiatric: Alert, Oriented x3, Depressed Affect Skin: Pallor Lymphatic: No Adenopathy Results/Procedures Lab Laboratory Tests 03/19/17 06:08 Assessment/Plan Assessment and Plan Assess & Plan/Chief Complaint Assessment: Lumbar spine surgical site drainage and inflammation empirically covering with IV antibiotics POD # 18 s/p I&D yesterday POD # 2-cultures show coag-negative staph and corynebacterium-both of which should be sensitive to vancomycin as such we'll go ahead and discontinue the cefepime especially since she has an allergy to cephalexin. Slow recovery and overall chronic debilitation Obstructive sleep apnea noncompliant with CPAP Hiatal hernia GERD History of peptic ulcers Osteoarthritis next number diabetes mellitus Chronic heart murmur Iron deficiency anemia COPD Tachycardia likely due to deconditioning type II diabetes with hypoglycemia this morning we will decrease her evening Lantus Plan: Possible disposition Tuesday once culture are completed-changed to vancomycin only Check sedimentation rate in am Rehab eval IV iron PT/OT Get up and moving Lopressor PO - Metoprolol 25 BID IV Benadryl for itching prn, Ivory chip as well LEVY ESCOBAR MD Mar 19, 2017 11:21
[2017-03-19 12:00] VITALS: BP 145/85
--- NOTE | 2017-03-19 12:32 | Physical Therapy Daily Note ---
PT Daily Note-Current Subjective Pt refuses to get out of bed. She repeatedly verbalizes she is trying to move and is working to get better but no one will take time to listen to her. She requests pain meds. She repeatedly complains of buttock pain and itching due to not being able to get off of her back side. Pain Numeric Pain Scale: 10-Worst Possible Pain Location: Soft Tissue Location Body Site: Back Pain Description: Burning, Sharp Mental Status Patient Orientation: Normal For Age Attachments: Posey Catheter Transfers Functional [place] Measure 0=Not Assessed/NA 4=Minimal Assistance 1=Total Assistance 5=Supervision or Setup 2=Maximal Assistance 6=Modified [place] 3=Moderate Assistance 7=Complete IndependenceIRFPAI Quality Coding Scale 6 Independent with activity with or without an assistive device 5 Patient requires set up or clean up by helper. Patient completes activity by themselves 4 Supervision or touching assist (CGA). Soph[place] provide cues , steadying assist 3 The helper provides less than half the effort to complete the activity 2 The helper provides more than half the effort to complete the activity 1 Dependent. The helper does all the effort to complete an activity 7 Patient refused to complete or attempt activity 9 The patient did not perform the activity before the current illness or injury 88 Not attempted due to Medical conditions or safety concerns Scootin Rollin Pt is able to roll side to side and able to scoot up in bed with assistance to adjust bed. Pt very demanding and persistent about doing all things in her own way. Exercises Supine Ex: Ankle pumps, Heel Slides, Hip abd/add Supine Reps: 10 Assessment Current Status: Poor Progress Pt has sufficient strength for out of bed activity but refused on multiple attempts from therapy and nursing to get out of bed. She was assisted in rolling side to side to reduce pressure on the sacrum. Her buttocks were cleaned and dried while she was in sidelying and clean/dry bedding was applied. Pt was advised of risk for skin break down if she does not get out of bed. She acknowledged the risk but said she did not want to risk the pain of getting up. PT Correction Goals Correction Goals PT Correction Goals Time Frame: Mar 25, 2017 Transfers (B,C,W/C) (FIM): 4 Gait (FIM): 1 Gait distance (FIM): 1=up to 49 ft Distance: 50' Gait Level of Assist: 5 Gait Assistive Device: FWW PT Plan Problem List Problem List: Functional Strength, Gait, Transfer Treatment/Plan Treatment Plan: Continue Plan of Care Treatment Plan: Bed Mobility, Education, Functional Activity [place], Functional Strength, Gait, Safety, Therapeutic Exercise, Transfers Treatment Duration: Mar 25, 2017 Visits Per Week: 6 Safety Risks/Education Patient Education: Correct Positioning, Safety Issues Teaching Recipient: Patient Teaching Methods: Discussion Response to Teaching: Verbalize Understanding Pt instructed to roll side to side every 15 minutes to reduce pressure. Discharge Recommendations Barriers to Progress patient motivation Time/GCodes Time In: 0900 Time Out: 09 Total Billed Treatment Time: 30 Total Billed Treatment visit, exercise 10 min, FA 20 min CARLIE MARROQUIN PT Mar 19, 2017 12:32
[2017-03-19] MEDS ORDERED: TROUGH ORDER-PHARMACY XX NR (13:00)
[2017-03-19 16:16] VITALS: BP 193/90
[2017-03-19 19:18] VITALS: BP 147/70
[2017-03-19] MEDS ORDERED: inSUlin DETERMIR 1 UNIT/0.01 ML (LEVEMIR) CHARGE PER UNIT SQ SCH (21:00)
[2017-03-19] MEDS: FERROUS SULF 325 MG (IRON) TAB PO SCH (21:33)
[2017-03-19] MEDS: inSUlin DETERMIR 1 UNIT/0.01 ML (LEVEMIR) CHARGE PER UNIT SQ SCH (21:37)
[2017-03-20] VITALS: BP 143/71
[2017-03-20] MEDS: HYDROmorphone (DILAUDID) 2 MG/ML VIAL IVP PRN ×3 (01:53→23:16)
[2017-03-20] MEDS: VANCOMYCIN 1250 MG/NS 250 ML IVPB IV SCH ×4 (01:54→13:28)
[2017-03-20] MEDS: diphenhydrAMINE 50 MG/ML INJ (BENADRYL) IVP PRN ×2 (03:20→23:26)
[2017-03-20] MEDS: HYDROcodone/APAP 5 MG/325 MG (LORTAB) TAB PO PRN ×2 (03:20→09:00)
[2017-03-20 04:00] VITALS: BP 166/90
[2017-03-20] MEDS: ALPRAZolam 0.25 MG (XANAX) TAB PO PRN (05:11)
[2017-03-20 05:51] LABS: BASOPHILS % (AUTO) 0 % (0-10); EOSINOPHILS # (AUTO) 0.5 10^3/uL (0.0-0.3); EOSINOPHILS % (AUTO) 4 % (0-10); LYMPHOCYTES # (AUTO) 1.2 X 10^3 (1.0-4.0); LYMPHOCYTES % (AUTO) 10 % (12-44); MEAN CORPUSCULAR HEMOGLOBIN 28 PG (25-34); MEAN CORPUSCULAR HGB CONC 30 G/DL (32-36); MEAN CORPUSCULAR VOLUME 91 FL (80-99); MEAN PLATELET VOLUME 8.7 FL (7.4-10.4); MONOCYTES # (AUTO) 1.1 X 10^3 (0.0-1.0); MONOCYTES % (AUTO) 10 % (0-12); NEUTROPHILS # (AUTO) 8.6 X 10^3 (1.8-7.8); NEUTROPHILS % (AUTO) 76 % (42-75); PLATELET COUNT 406 10^3/uL (130-400); RED BLOOD COUNT 3.33 10^6/uL (4.35-5.85); RED CELL DISTRIBUTION WIDTH 13.9 % (10.0-14.5); WHITE BLOOD COUNT 11.3 10^3/uL (4.3-11.0)
[2017-03-20 06:13] LABS: ERYTHROCYTE SEDIMENTATION RATE > 140 MM/HR (0-30)
[2017-03-20 06:15] LABS: ALANINE AMINOTRANSFERASE 9 U/L (0-55); ALBUMIN 2.7 G/DL (3.2-4.5); ANION GAP 13 MMOL/L (5-14); ASPARTATE AMINO TRANSFERASE 10 U/L (5-34); BILIRUBIN,TOTAL 0.7 MG/DL (0.1-1.0); BLOOD UREA NITROGEN 6 MG/DL (7-18); BUN/CREATININE RATIO 10; CALCIUM 9.1 MG/DL (8.5-10.1); CARBON DIOXIDE 26 MMOL/L (21-32); CHLORIDE 103 MMOL/L (98-107); CREATININE SERUM 0.63 MG/DL (0.60-1.30); GFR ESTIMATED > 60; GLUCOSE 156 MG/DL (70-105); POTASSIUM 3.7 MMOL/L (3.6-5.0); SODIUM 142 MMOL/L (135-145); TOTAL PROTEIN 6.5 G/DL (6.4-8.2)
[2017-03-20] MEDS: inSUlin ASPART (NovoLOG) 1 UNIT/0.01 ML (CHARGE PER UNIT) SC SCH ×4 (06:43→21:58)
[2017-03-20 07:44] VITALS: BP 150/79
[2017-03-20] MEDS: meTOprolol TARTRATE 25 MG (LOPRESSOR) TABLET PO SCH ×2 (09:00→21:58)
[2017-03-20] MEDS: BACLOFEN 10 MG (LIORESAL) TAB PO SCH ×3 (09:00→21:58)
[2017-03-20] MEDS: POLYETHYLENE GLYCOL 17 GM (MIRALAX) PACK PO SCH ×2 (09:03→21:58)
--- NOTE | 2017-03-20 10:02 | Progress Note (SOAP) ---
Subjective Time Seen by Provider: 09:57 Subjective/Events-last exam Pt still complaining of low back pain, enough that she will not get out of bed. She is having a lot of itching due to adhesive allergies. Able to move her legs better without as much pain. Objective Exam Vital Signs Date Time Temp Pulse Resp B/P (MAP) Pulse Ox O2 Delivery O2 Flow Rate FiO2 03/20/17 07:44 97.2 102 20 150/79 96 03/20/17 04:00 97.0 120 24 166/90 95 03/20/17 00:00 97.8 109 18 143/71 93 03/19/17 19:18 99.6 103 18 147/70 95 03/19/17 16:16 98.4 107 20 193/90 97 03/19/17 12:00 99.2 106 22 145/85 96 I & O 03/20/17 07:00 Intake Total 1362.5 ml Output Total 2485 ml Balance -1122.5 ml Capillary Refill : General Appearance: WD/WN, Obese Respiratory: No Accessory Muscle Use Neurologic/Psychiatric: Alert, Oriented x3, No Motor/Sensory Deficits Skin: Normal Color, Other (Urticaria surrounding the incision) Results Lab Laboratory Tests 03/19/17 11:04: Glucometer 196H 03/19/17 12:55: Vancomycin Level Trough 17.4 03/19/17 15:45: Glucometer 141H 03/19/17 21:05: Glucometer 163H 03/20/17 05:00: White Blood Count 11.3H, Red Blood Count 3.33L, Hemoglobin 9.2L, Hematocrit 30L , Mean Corpuscular Volume 91, Mean Corpuscular Hemoglobin 28, Mean Corpuscular Hemoglobin Concent 30L, Red Cell Distribution Width 13.9, Platelet Count 406H, Mean Platelet Volume 8.7, Neutrophils (%) (Auto) 76H, Lymphocytes (%) (Auto) 10L , Monocytes (%) (Auto) 10, Eosinophils (%) (Auto) 4, Basophils (%) (Auto) 0, Neutrophils # (Auto) 8.6H, Lymphocytes # (Auto) 1.2, Monocytes # (Auto) 1.1H, Eosinophils # (Auto) 0.5H, Basophils # (Auto) 0.0, Erythrocyte Sedimentation Rate > 140H, Sodium Level 142, Potassium Level 3.7, Chloride Level 103, Carbon Dioxide Level 26, Anion Gap 13, Blood Urea Nitrogen 6L, Creatinine 0.63, Estimat Glomerular Filtration Rate > 60, BUN/Creatinine Ratio 10, Glucose Level 156H, Calcium Level 9.1, Total Bilirubin 0.7, Aspartate Amino Transf (AST/SGOT) 10, Alanine Aminotransferase (ALT/SGPT) 9, Alkaline Phosphatase 91, Total Protein 6.5, Albumin 2.7L Microbiology 03/16/17 Blood Culture - Preliminary, Resulted No growth 03/16/17 MRSA Screen - Final, Complete MRSA not isolated 03/17/17 Gram Stain - Final, Resulted 03/17/17 Anaerobic Culture, Resulted Pending 03/17/17 Surgical Culture - Preliminary, Resulted No growth Assessment/Plan Assessment/Plan Assess & Plan/Chief Complaint S/P Lumbar fusion and subsequent I&D of lumbar wound Continue pain control. Strongly encouraged ambulation, needs to get up and move some. Will change pain meds to Percocet 10/325 Will order Vistaril for itching Decadron 8 mg IV X 1 to help with allergic rxn. Monitor Blood sugars closely following the steroid Clinical Quality Measures DVT/VTE Risk/Contraindication: Risk Factor Score Per Nursin RFS Level Per Nursing on Admit: 4+=Very High Contraindications-Pharm: Other *list below* Other: needs surgery AVINASH MARTINEZ Mar 20, 2017 10:02
[2017-03-20] MEDS ORDERED: oxyCODONE/APAP 10/325MG (PERCOCET 10) TABLET PO PRN (10:15)
[2017-03-20] MEDS ORDERED: DEXAMETHASONE 4 MG/ML SDV (DECADRON) IV ONE (10:15)
[2017-03-20] MEDS: hydrOXYzine (VISTARIL) 25 MG CAP PO PRN ×2 (11:13→21:57)
[2017-03-20 11:41] VITALS: BP 148/72
--- NOTE | 2017-03-20 11:49 | Progress Note-Hospitalist ---
Subjective HPI/CC On Admission Time Seen by Provider: 11:00 CC: Drainage from lumbar spinal surgical site HPI: This is a 61 yoWF pt of Brad Andrade known to me from [facility] admission for lumbar spine surgery on 03/01/17. Pt has had a very slow recovery and began having redness and drainage. Pt was started on Keflex in [place] ER Tuesday and seen by Dr. Villalta in his office yesterday. She was a direct admit to [facility]. PICC line was placed and pt was empirically started on Vanc and Cefepime. WBC 7.7, Hgb 7.0, ESR 140, iron 12. 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 Lungs sound perfect Labs were discussed with the pt and she was informed that she will continue having iron treatments Pt has been having bowel movements Pt was informed that she will continue to antibiotics Pt states that she has not been comfortable and this has inhibited her movement. Pt states that she has been sticking to the bed Pt states that she has been sleeping well Scribed by Marion Miguel under the direct supervision of Dr. Acosta. Date Seen 03/20/17 Subjective/Events-last exam patient notes she has not been out of bed because the pain is too severe and that were not giving her anything for her pain control. She notes she has not had a bowel movement last several days but her body will tell her when they need to move Review of Systems Gastrointestinal: Constipation Musculoskeletal: back pain Objective Exam Vital Signs Vital Sign - Last 12Hours 03/16/17 16:37 Temp 97.7 Pulse 103 Resp 12 B/P (MAP) 158/70 Pulse Ox 95 Capillary Refill : General Appearance: Obese HEENT: Normal ENT Inspection Respiratory: Chest Non Tender, Lungs Clear, Normal Breath Sounds, No Accessory Muscle Use Cardiovascular: Regular Rate, Rhythm, No Gallop, No Murmur Gastrointestinal: No Organomegaly, Soft Rectal: Deferred Extremity: No Calf Tenderness Neurologic/Psychiatric: Alert, Oriented x3, Depressed Affect Skin: Normal Color, Warm/Dry Results/Procedures Lab Laboratory Tests 03/20/17 05:00 Assessment/Plan Assessment and Plan Assess & Plan/Chief Complaint Assessment: Lumbar spine surgical site drainage and inflammation empirically covering with IV antibiotics POD # 19 s/p I&D yesterday POD # 3-cultures show coag-negative staph and corynebacterium-both of which should be sensitive to vancomycin as such we'll go ahead and discontinue the cefepime especially since she has an allergy to cephalexin. Slow recovery and overall chronic debilitation Obstructive sleep apnea noncompliant with CPAP Hiatal hernia GERD History of peptic ulcers Osteoarthritis next number diabetes mellitus Chronic heart murmur Iron deficiency anemia COPD Tachycardia likely due to deconditioning type II diabetes with hypoglycemia this morning we will decrease her evening Lantus Plan: Possible disposition Tuesday once culture are completed-changed to vancomycin only Check sedimentation rate in am Rehab eval IV iron PT/OT Get up and moving Lopressor PO - Metoprolol 25 BID IV Benadryl for itching prn, Ivory sheets as well\ echocardiogram for further evaluation of the systolic murmur and the markedly elevated sedimentation rate LEVY ESCOBAR MD Mar 20, 2017 11:49
[2017-03-20] MEDS: HYDROcodone/APAP 7.5 MG/325 MG (LORTAB, LORCET PLUS) TABLET PO SCH ×3 (12:34→23:16)
[2017-03-20] MEDS: IRON SUCROSE INJECTION 200 MG in NS (IVPB) 100 ML IV SCH (14:51)
[2017-03-20 16:07] VITALS: BP 168/73
[2017-03-20 20:00] VITALS: BP 139/68
[2017-03-20] MEDS: inSUlin DETERMIR 1 UNIT/0.01 ML (LEVEMIR) CHARGE PER UNIT SQ SCH (21:58)
[2017-03-20] MEDS: FERROUS SULF 325 MG (IRON) TAB PO SCH (21:58)
[2017-03-21 00:09] VITALS: BP 156/78
[2017-03-21] MEDS: VANCOMYCIN 1250 MG/NS 250 ML IVPB IV SCH ×4 (02:03→13:46)
[2017-03-21 04:00] VITALS: BP 150/70
[2017-03-21] MEDS: HYDROcodone/APAP 7.5 MG/325 MG (LORTAB, LORCET PLUS) TABLET PO SCH ×4 (05:31→23:53)
[2017-03-21 06:01] LABS: BASOPHILS % (AUTO) 0 % (0-10); EOSINOPHILS % (AUTO) 0 % (0-10); LYMPHOCYTES # (AUTO) 0.7 X 10^3 (1.0-4.0); LYMPHOCYTES % (AUTO) 5 % (12-44); MEAN CORPUSCULAR HEMOGLOBIN 27 PG (25-34); MEAN CORPUSCULAR HGB CONC 30 G/DL (32-36); MEAN CORPUSCULAR VOLUME 90 FL (80-99); MEAN PLATELET VOLUME 8.4 FL (7.4-10.4); MONOCYTES # (AUTO) 0.6 X 10^3 (0.0-1.0); MONOCYTES % (AUTO) 5 % (0-12); NEUTROPHILS # (AUTO) 11.1 X 10^3 (1.8-7.8); NEUTROPHILS % (AUTO) 90 % (42-75); PLATELET COUNT 476 10^3/uL (130-400); RED BLOOD COUNT 3.35 10^6/uL (4.35-5.85); RED CELL DISTRIBUTION WIDTH 13.7 % (10.0-14.5); WHITE BLOOD COUNT 12.3 10^3/uL (4.3-11.0)
[2017-03-21 06:21] LABS: ALANINE AMINOTRANSFERASE 11 U/L (0-55); ALBUMIN 2.8 G/DL (3.2-4.5); ANION GAP 12 MMOL/L (5-14); ASPARTATE AMINO TRANSFERASE 11 U/L (5-34); BILIRUBIN,TOTAL 0.4 MG/DL (0.1-1.0); BLOOD UREA NITROGEN 11 MG/DL (7-18); BUN/CREATININE RATIO 18; CALCIUM 9.3 MG/DL (8.5-10.1); CARBON DIOXIDE 26 MMOL/L (21-32); CHLORIDE 101 MMOL/L (98-107); CREATININE SERUM 0.62 MG/DL (0.60-1.30); GFR ESTIMATED > 60; GLUCOSE 236 MG/DL (70-105); POTASSIUM 4.1 MMOL/L (3.6-5.0); SODIUM 139 MMOL/L (135-145); TOTAL PROTEIN 6.7 G/DL (6.4-8.2)
[2017-03-21] MEDS: inSUlin ASPART (NovoLOG) 1 UNIT/0.01 ML (CHARGE PER UNIT) SC SCH ×3 (06:29→17:03)
[2017-03-21 06:36] LABS: LYMPHOCYTES % (MANUAL) 1 %; NEUTROPHILS % (MANUAL) 94 %
[2017-03-21 06:37] LABS: HYPOCHROMASIA SLIGHT; POIKILOCYTOSIS SLIGHT; POLYCHROMASIA SLIGHT
[2017-03-21 08:21] VITALS: BP 125/61
[2017-03-21] MEDS: HYDROmorphone (DILAUDID) 2 MG/ML VIAL IVP PRN ×4 (08:30→17:10)
[2017-03-21] MEDS: meTOprolol TARTRATE 25 MG (LOPRESSOR) TABLET PO SCH ×2 (08:30→22:02)
[2017-03-21] MEDS: BACLOFEN 10 MG (LIORESAL) TAB PO SCH ×3 (08:30→22:02)
[2017-03-21] MEDS: POLYETHYLENE GLYCOL 17 GM (MIRALAX) PACK PO SCH ×2 (08:31→21:13)
--- NOTE | 2017-03-21 09:48 | Physical Therapy Daily Note ---
PT Daily Note-Current Subjective Patient in bed pre tx, laying on her right side with pillow support. Patient states she has 10/10 pain and will not get out of bed or even sit at the edge of the bed at this time. She agrees to bed exercises. Appearance Patient laying flat on her back post tx, nursing notified, patient states she is having nursing turn her every 2 hours and it is time to go back flat on her back. Patient has nurse call, phone, tray, all needs met. Transfers Functional [place] Measure 0=Not Assessed/NA 4=Minimal Assistance 1=Total Assistance 5=Supervision or Setup 2=Maximal Assistance 6=Modified [place] 3=Moderate Assistance 7=Complete IndependenceIRFPAI Quality Coding Scale 6 Independent with activity with or without an assistive device 5 Patient requires set up or clean up by helper. Patient completes activity by themselves 4 Supervision or touching assist (CGA). [place] provide cues , steadying assist 3 The helper provides less than half the effort to complete the activity 2 The helper provides more than half the effort to complete the activity 1 Dependent. The helper does all the effort to complete an activity 7 Patient refused to complete or attempt activity 9 The patient did not perform the activity before the current illness or injury 88 Not attempted due to Medical conditions or safety concerns [place] Patient has potential to move well in the bed but has nursing turn her every 2 hours. Patient has staff using the draw sheet to pull and rotate her body for turning. She will not attempt a log roll. Exercises Supine Ex: Ankle pumps, Quad Set, Glut sets, Heel Slides Supine Reps: 20 Patient could only perform 10 heel slides on the left side. Treatments turning, bed exercises. Assessment Current Status: Poor Progress Patient is unwilling to get out of bed or even attempt to sit at the edge of the bed, which is what she requires to improve with mobility. Patient states she is trying and want to roll back and forth using the drawsheet to position her because she can perform her exercises better when she is rolled onto the side that she is exercising but that is nowhere near the amount of activity that she needs. Patient states that she would be willing to participate more but she needs the doctor to totally numb her back. Patient runs the risk of getting weaker quickly with her current activity level. PT Intermediate Goals [place] Goals PT Intermediate Goals Time Frame: Mar 25, 2017 Transfers (B,C,W/C) (FIM): 4 Gait (FIM): 1 Gait distance (FIM): 1=up to 49 ft Distance: 50' Gait Level of Assist: 5 Gait Assistive Device: FWW PT Plan Problem List Problem List: Activity Tolerance, Functional Strength, Safety, Balance, Gait, Transfer, Bed Mobility, ROM Treatment/Plan Treatment Plan: Continue Plan of Care Treatment Plan: Bed Mobility, Education, Functional Activity [place], Functional Strength, Gait, Safety, Therapeutic Exercise, Transfers Treatment Duration: Mar 25, 2017 Visits Per Week: 6 Safety Risks/Education Patient Education: Correct Positioning, Disease Process, Safety Issues Teaching Recipient: Patient Teaching Methods: Demonstration, Discussion Response to Teaching: Reinforcement Needed Time/GCodes Time In: 920 Time Out: 935 Total Billed Treatment Time: 15 Total Billed Treatment 1 visit EX 15' MARIBETH HANSEN PT Mar 21, 2017 09:48
--- NOTE | 2017-03-21 09:53 | Progress Note-Hospitalist ---
Progress Note HPI/CC on Admission CC: Drainage from lumbar spinal surgical site HPI: This is a 61 yoWF pt of Bradquang Andrade known to me from [facility] admission for lumbar spine surgery on 03/01/17. Pt has had a very slow recovery and began having redness and drainage. Pt was started on Keflex in [place] ER Tuesday and seen by Dr. Villalta in his office yesterday. She was a direct admit to [facility]. PICC line was placed and pt was empirically started on Vanc and Cefepime. WBC 7.7, Hgb 7.0, ESR 140, iron 12. 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 Lungs sound perfect Labs were discussed with the pt and she was informed that she will continue having iron treatments Pt has been having bowel movements Pt was informed that she will continue to antibiotics Pt states that she has not been comfortable and this has inhibited her movement. Pt states that she has been sticking to the bed Pt states that she has been sleeping well Scribed by Marion Miguel under the direct supervision of Dr. Cody. Progress Notes/Assess & Plan Date Seen 03/21/17 Date Seen by Provider: Mar 21, 2017 Time Seen by Provider: 09:30 Admission Dx/Process Assessment: Lumbar spine surgical site drainage and inflammation empirically covering with IV antibiotics POD # 16 in need of I&D today Slow recovery and overall chronic debilitation Obstructive sleep apnea noncompliant with the Pap Hiatal hernia GERD History of peptic ulcers Osteoarthritis next number diabetes mellitus Chronic heart murmur Iron deficiency anemia COPD Diagonsis/Assessment & Plan Patient having more and more difficulty getting out of bed and participating any type of therapy Still having a lot of pain but I did speak with Dr. VILLALTA who has evaluated this entire situation and should not be having the pain she is having and not much organic basis for it so will try to support her in any way possible No fever Will inquire with spine surgery to see if we can do Lovenox for DVT prophylaxis because of the immobile state high risk for DVT Blood sugars 200s most of the time Overall very poor prognosis if she continues on the track she is on because of the severe immobility issues Will start on Lovenox for DVT since Dr Villalta approved ECHO ordered due to murmur will follow up on that results AFVSS, Pleasant, improved overall Tachycardic 92 regular, CTAB no rales noted No edema Laboratory Tests 03/21/17 05:25 Assessment: Lumbar spine surgical site drainage with Strep and Staph on IV antibiotics POD # 20 s/p I&D POD # 4 Slow recovery and overall chronic debilitation Obstructive sleep apnea noncompliant with CPAP Hiatal hernia GERD History of peptic ulcers Osteoarthritis next number diabetes mellitus Chronic heart murmur Iron deficiency anemia receiving iron infusions COPD Tachycardia likely due to deconditioning DM Post op constipation Plan: Needs NH since can't get OOB to participate in IRU Continue antibiotics empiric coverage for 6 weeks total Check labs in am IV iron PT/OT Get up and moving Lopressor PO - Metoprolol 25 BID Lovenox Bowel regimen DC SSI and add Novolog 10 units before meals SARAH CODY DO Mar 21, 2017 09:53
[2017-03-21] MEDS ORDERED: BISACODYL 10 MG SUPP (DULCOLAX) PR NR (10:32)
[2017-03-21] MEDS: ENOXAPARIN 40 MG/0.4 ML (LOVENOX) SYR SC SCH (10:47)
[2017-03-21] MEDS: LACTULOSE SYRUP 10GM/15ML (ENULOSE) 30ML UDC PO SCH ×2 (12:16→21:13)
[2017-03-21 12:32] VITALS: BP 123/60
--- NOTE | 2017-03-21 13:39 | Progress Note (SOAP) ---
Subjective Time Seen by Provider: 13:39 Subjective/Events-last exam S/P lumbar surgical site I&D Positive culture for Strep. Tiffany. Wound Vac applied by myself. Wound bed 12 cm x 5 cm x 5 cm deep. [place] viable tissue with minimal pseudo-eschar, no purulent drainage Review of Systems General: No Chills, No Night Sweats Musculoskeletal: back pain Neurological: Weakness, No: Numbness Objective Exam Vital Signs Date Time Temp Pulse Resp B/P (MAP) Pulse Ox O2 Delivery O2 Flow Rate FiO2 03/21/17 12:32 98.2 91 20 123/60 96 03/21/17 08:21 96.8 93 20 125/61 96 03/21/17 04:00 97.0 94 14 150/70 93 03/21/17 00:09 99.1 110 18 156/78 95 03/20/17 20:00 99.1 112 20 139/68 92 03/20/17 16:07 98.9 101 20 168/73 92 I & O 03/21/17 07:00 Intake Total 1515.0 ml Output Total 2400 ml Balance -885.0 ml Capillary Refill : General Appearance: No Apparent Distress, WD/WN HEENT: PERRL/EOMI Respiratory: No Respiratory Distress Extremity: No Calf Tenderness Neurologic/Psychiatric: Alert, Oriented x3, No Motor/Sensory Deficits Skin: Other (lumbar wound as previously described) Results Lab Laboratory Tests 03/20/17 15:34: Glucometer 215H 03/20/17 21:02: Glucometer 363H 03/21/17 05:25: White Blood Count 12.3H, Red Blood Count 3.35L, Hemoglobin 9.1L, Hematocrit 30L , Mean Corpuscular Volume 90, Mean Corpuscular Hemoglobin 27, Mean Corpuscular Hemoglobin Concent 30L, Red Cell Distribution Width 13.7, Platelet Count 476H, Mean Platelet Volume 8.4, Neutrophils (%) (Auto) 90H, Lymphocytes (%) (Auto) 5L , Monocytes (%) (Auto) 5, Eosinophils (%) (Auto) 0, Basophils (%) (Auto) 0, Neutrophils # (Auto) 11.1H, Lymphocytes # (Auto) 0.7L, Monocytes # (Auto) 0.6, Eosinophils # (Auto) 0.0, Basophils # (Auto) 0.0, Neutrophils % (Manual) 94, Lymphocytes % (Manual) 1, Monocytes % (Manual) 5, Polychromasia SLIGHT, Hypochromasia SLIGHT, Poikilocytosis SLIGHT, Sodium Level 139, Potassium Level 4.1, Chloride Level 101, Carbon Dioxide Level 26, Anion Gap 12, Blood Urea Nitrogen 11, Creatinine 0.62, Estimat Glomerular Filtration Rate > 60, BUN/ Creatinine Ratio 18, Glucose Level 236H, Calcium Level 9.3, Total Bilirubin 0.4 , Aspartate Amino Transf (AST/SGOT) 11, Alanine Aminotransferase (ALT/SGPT) 11, Alkaline Phosphatase 90, Total Protein 6.7, Albumin 2.8L 03/21/17 11:46: Glucometer 250H Microbiology 03/16/17 Blood Culture - Preliminary, Resulted No growth 03/16/17 MRSA Screen - Final, Complete MRSA not isolated 03/17/17 Gram Stain - Final, Resulted 03/17/17 Anaerobic Culture - Preliminary, Resulted No anaerobes isolated 03/17/17 Surgical Culture - Preliminary, Resulted Streptococcus Viridans Assessment/Plan Assessment/Plan Assess & Plan/Chief Complaint Lumbar surgical site infection Debilitation Wound Vac change on Tuesday Discharge planning Clinical Quality Measures DVT/VTE Risk/Contraindication: Risk Factor Score Per Nursin RFS Level Per Nursing on Admit: 4+=Very High Contraindications-Pharm: Other *list below* Other: needs surgery ETHAN LAM Mar 21, 2017 13:39
[2017-03-21] MEDS ORDERED: ALTEPLASE 2 MG (CATHFLO) IV ONE (13:45)
--- NOTE | 2017-03-21 14:54 | Occupational Ther Daily Note ---
OT Current Status-Daily Note Subjective Pt seen in room, in bed, reporting she just had a wound vac applied and she was in terrible pain. Not rated. Mental Status/Objective Functional [place] Measure 0=Not Assessed/NA 4=Minimal Assistance 1=Total Assistance 5=Supervision or Setup 2=Maximal Assistance 6=Modified [place] 3=Moderate Assistance 7=Complete [place] Other Treatment Pt was observed to move LEs easier today than Tuesday. Agreeable to bilat UE AROM , no additional resistance. Pt shown two exercises that she can do to incr UE strength - she was able to do 15 reps each one but had some difficulty tracking repetitions. Pt agreeable to do them on her own. She also was encouraged to use her arms to pull herself up in bed and to assist with rolling. She was insistent that she does use her arms to help move "when they let me" but said that being able to take care of herself was totally dependant on her pain management. Pt very verbal and repetitive about her pain management. Will attempt to do ADLs EOB tomorrow. Pt left up in bed, all needs met. Education OT Patient Education: Exercise program, Purpose of tx/functional activities Teaching Recipient: Patient Teaching Methods: Demonstration Response to Teaching: Return Demonstration, Reinforcement Needed OT Short Term Goals Short Term Goals 1=Demonstrate adherence to instructed precautions during ADL tasks. 2=Patient will verbalize/demonstrate understanding of assistive devices/ modifications for ADL. 3=Patient will improve strength/tolerance for activity to enable patient to perform ADL's. OT Alf Goals Alf Goals Time Frame: Apr 08, 2017 Eating (FIM): 6 Grooming(FIM): 6 Bathing(FIM): 6 Upper Body Dressing(FIM): 6 Lower Body Dressing(FIM): 6 Toileting(FIM): 6 Toilet/Commode Transfer(FIM): 6 Shower Transfer(FIM): 6 Additional Goals: 1-Demonstrate ADL Tasks, 2-Verbalize Understanding, 3- ImproveStrength/[place] 1=Demonstrate adherence to instructed precautions during ADL tasks. 2=Patient will verbalize/demonstrate understanding of assistive devices/ modifications for ADL. 3=Patient will improve strength/tolerance for activity to enable patient to perform ADL's. OT Education/Plan Problem List/Assessment Pt would benefit from skilled OT to increase her independence in basic self care to allow her to safely return home to live with her and to decrease caregiver burden. Discharge Recommendations Plan/Recommendations: Continue POC Treatment Plan/Plan of Care Patient would benefit from OT for education, treatment and training to promote independence in ADL's, mobility, safety and/or upper extremity function for ADL' s. Plan of Care: ADL Retraining, Functional Mobility, UE Funct Exercise/Act, UE Neuromus Re-Ed/Coord Treatment Duration: Apr 08, 2017 Visits Per Week: 5-6 Agreement: Yes Rehab Potential: Good Time/GCodes Start Time: 14:28 Stop Time: 14:43 Total Time Billed (hr/min): 15 Billed Treatment Time visit, 15 minutes exercise PRATIK HARVEY OT Mar 21, 2017 14:54
[2017-03-21 16:30] VITALS: BP 139/63
[2017-03-21 20:56] VITALS: BP 137/73
[2017-03-21] MEDS: SENNA W/DOCUSATE (SENOKOT S) TABLET PO SCH (21:13)
[2017-03-21] MEDS: inSUlin DETERMIR 1 UNIT/0.01 ML (LEVEMIR) CHARGE PER UNIT SQ SCH (22:02)
[2017-03-21] MEDS: FERROUS SULF 325 MG (IRON) TAB PO SCH (22:02)
[2017-03-22] VITALS: BP 149/70
[2017-03-22] MEDS: HYDROmorphone (DILAUDID) 2 MG/ML VIAL IVP PRN ×4 (01:42→22:02)
[2017-03-22] MEDS: VANCOMYCIN 1250 MG/NS 250 ML IVPB IV SCH ×4 (01:42→13:55)
--- NOTE | 2017-03-22 06:26 | Progress Note (SOAP) ---
Subjective Time Seen by Provider: 06:23 Subjective/Events-last exam Still hurting whenever she tries to move. Says she can't move her hips well. Wound Vac applied yesterday Objective Exam Vital Signs Date Time Temp Pulse Resp B/P (MAP) Pulse Ox O2 Delivery O2 Flow Rate FiO2 03/22/17 00:00 99.1 101 20 149/70 94 03/21/17 20:56 97.5 97 16 137/73 95 03/21/17 16:30 96.8 90 16 139/63 100 03/21/17 12:32 98.2 91 20 123/60 96 03/21/17 08:21 96.8 93 20 125/61 96 I & O 03/22/17 07:00 Intake Total 1722.5 ml Output Total 1225 ml Balance 497.5 ml Capillary Refill : General Appearance: Mild Distress Respiratory: No Accessory Muscle Use, No Respiratory Distress Cardiovascular: Regular Rate, Rhythm, Normal Peripheral Pulses Gastrointestinal: non tender, soft Extremity: No Calf Tenderness Neurologic/Psychiatric: Alert, Oriented x3, Other (generalized weakness of both lower extremities, more left iliopsoas (2nd to lateral approach)) Results Lab Laboratory Tests 03/21/17 11:46: Glucometer 250H 03/21/17 16:05: Glucometer 90 03/21/17 21:18: Glucometer 173H Microbiology 03/16/17 Blood Culture - Preliminary, Resulted No growth 03/16/17 MRSA Screen - Final, Complete MRSA not isolated 03/17/17 Gram Stain - Final, Resulted 03/17/17 Anaerobic Culture - Preliminary, Resulted No anaerobes isolated 03/17/17 Surgical Culture - Preliminary, Resulted Streptococcus Viridans Assessment/Plan Assessment/Plan Assess & Plan/Chief Complaint S/P lumbar fusion with post-op infection Pain control Morbid Obesity Plan: Check CT scan to look for hardware placement/failure and psoas fluid collections or other source of all her pain. Clinical Quality Measures DVT/VTE Risk/Contraindication: Risk Factor Score Per Nursin RFS Level Per Nursing on Admit: 4+=Very High Contraindications-Pharm: Other *list below* Other: needs surgery KAITLYNN LAFLEUR MD Mar 22, 2017 6:26 am
[2017-03-22] MEDS: HYDROcodone/APAP 7.5 MG/325 MG (LORTAB, LORCET PLUS) TABLET PO SCH ×4 (07:01→23:05)
[2017-03-22] MEDS: inSUlin ASPART (NovoLOG) 1 UNIT/0.01 ML (CHARGE PER UNIT) SC SCH ×3 (07:02→23:05)
[2017-03-22 07:53] VITALS: BP 163/79
[2017-03-22] MEDS: BACLOFEN 10 MG (LIORESAL) TAB PO SCH ×3 (08:33→20:35)
[2017-03-22] MEDS: meTOprolol TARTRATE 25 MG (LOPRESSOR) TABLET PO SCH ×2 (08:33→20:35)
[2017-03-22] MEDS: LACTULOSE SYRUP 10GM/15ML (ENULOSE) 30ML UDC PO SCH ×3 (08:35→20:39)
[2017-03-22] MEDS: POLYETHYLENE GLYCOL 17 GM (MIRALAX) PACK PO SCH ×2 (08:35→20:39)
[2017-03-22] MEDS: SENNA W/DOCUSATE (SENOKOT S) TABLET PO SCH ×2 (08:35→20:39)
[2017-03-22] MEDS: ENOXAPARIN 40 MG/0.4 ML (LOVENOX) SYR SC SCH (09:49)
--- NOTE | 2017-03-22 10:28 | Progress Note-Hospitalist ---
Progress Note HPI/CC on Admission CC: Drainage from lumbar spinal surgical site HPI: This is a 61 yoWF pt of Brad Andrade known to me from [facility] admission for lumbar spine surgery on 03/01/17. Pt has had a very slow recovery and began having redness and drainage. Pt was started on Keflex in [place] ER Tuesday and seen by Dr. Villalta in his office yesterday. She was a direct admit to [facility]. PICC line was placed and pt was empirically started on Vanc and Cefepime. WBC 7.7, Hgb 7.0, ESR 140, iron 12. 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 Lungs sound perfect Labs were discussed with the pt and she was informed that she will continue having iron treatments Pt has been having bowel movements Pt was informed that she will continue to antibiotics Pt states that she has not been comfortable and this has inhibited her movement. Pt states that she has been sticking to the bed Pt states that she has been sleeping well Scribed by Marion Miguel under the direct supervision of Dr. Cody. Progress Notes/Assess & Plan Date Seen 03/22/17 Time Seen by Provider: 10:15 Admission Dx/Process Assessment: Lumbar spine surgical site drainage and inflammation empirically covering with IV antibiotics POD # 16 in need of I&D today Slow recovery and overall chronic debilitation Obstructive sleep apnea noncompliant with the Pap Hiatal hernia GERD History of peptic ulcers Osteoarthritis next number diabetes mellitus Chronic heart murmur Iron deficiency anemia COPD Diagonsis/Assessment & Plan Talked about the "taco" positioning of the bed that is causing increased pain Wound vac placed and CT scan to be performed in 30 minutes to check on hardware Had BM after supp Started on Lovenox for DVT Pxsince Dr Villalta approved ECHO ordered due to murmur will follow up on that results and Dr Rose will see her to r/o endocarditis AFVSS, [place], improved overall Tachycardic 92 regular no change to 3/6 murmur, CTAB no rales noted No edema Assessment: Lumbar spine surgical site drainage with Strep and Staph on IV antibiotics POD # 21 s/p I&D POD # 5 now with wound vac placement D # 1 Slow recovery and overall chronic debilitation Obstructive sleep apnea noncompliant with CPAP Hiatal hernia GERD History of peptic ulcers Osteoarthritis Chronic heart murmur Iron deficiency anemia receiving iron infusions COPD Tachycardia likely due to deconditioning improved on BB DM improved when increased insulin yesterday Post op constipation resolved Plan: Continue antibiotics empiric coverage for 6 weeks total Check labs in am IV iron PT/OT Maintain Lopressor PO - Metoprolol 25 BID Lovenox Bowel regimen to continue DC SSI and add Novolog 10 units before meals maintained CT scan to check on hardware Alter bed to support [facility] SARAH CODY DO Mar 22, 2017 10:28
--- NOTE | 2017-03-22 11:25 | Occ Therapy Progress Note ---
Therapy Progress Note Date Seen by Provider: Mar 22, 2017 Time Seen by Provider: 10:50 1050 TO 1055 Pt reported that she was waiting to have a CT scan and looking for some answers on why she is having so much pain. She was also waiting for "pain shot" for her scan. Will check back later. PRATIK HARVEY OT Mar 22, 2017 11:25
--- NOTE | 2017-03-22 11:28 | Consultation-Cardiology ---
HPI-Cardiology Cardiology Consultation: Date of Consultation 03/22/17 Date of Admission 03-16-17 Attending Physician Ilir Villalta MD Admitting Physician Heidi,Local Physician Consulting Physician Maira Rose MD HPI: Chief Complaint: Tachycardia Murmur Ms. Dela Cruz is a 61 year old female admitted to room 408. She reports she had back surgery d/t degenerative disc disease several weeks ago. She reports she then developed an infection in her back at the surgical site for which she has undergone debridement twice. She reports she now has a wound vac in place and is having a considerable amount of back pain. She reports shortness or breath with movement. She reports on occ she gets a sharp stabbing pain across the left side of her chest which only last for a minute or less. She not not report any r/t activity or emotional stress. She reports no associated symptoms. She does report chronic bilat LE edema, R>L, which is chronic. She does not report any palpitations. Her mobility is limited d/t her back and left hip pain. She does report she was diagnosed with a heart murmur back in August by Dr. Andrade and she had an echocardiogram in [place], [place]. She does not know the results. No c/o n/v/d. Review of Systems-Cardiology Review of Systems Date Seen by Provider: Mar 21, 2017 Time Seen by Provider: 10:15 Constitutional: As described under HPI Eyes: No blurred vision, No drainage, No pain, No vision change Ears/Nose/Throat: No ear discharge, No ear pain, No nasal drainage, No ulcerations Respiratory: As described under HPI Cardiovascular: As described under HPI Gastrointestinal: No constipation, No diarrhea, No nausea, No vomiting, No stool coloration changes Genitourinary: No dysuria, No discharge, No frequency, No hematuria, No urgency , other (urinary catheter in place currently) : No Musculoskeletal: back pain Skin: No rash, No skin related problems, No ulcerations Psychiatric/Neurological: No anxiety, No depression, No focal weakness, No seizure, No syncope Hematologic: No bleeding abnormalities [id number] Hx Patient Social History Marrital Status: Employed/Student: unemployed Alcohol Use: Denies Use Recreational Drug Use: No Smoking Status: Former Smoker Recent Foreign Travel: No Recent Infectious Disease Expo: No Hospitalization with Isolation: Denies Physical Abuse Screen: No Sexual Abuse: No Past Medical History PMH As described under Assessment. Family Medical History Family Medical History: She report her mother had breast cancer and in her 30's from a stroke. Allergies and Home Medications Allergies Coded Allergies: cephalexin (Verified Allergy, Severe, RASH, 08/16/16) morphine (Verified Allergy, Severe, HIVES, 08/16/16) Penicillins (Verified Allergy, Unknown, 08/16/16) Home Medications Baclofen 10 Mg Tablet, 10 MG PO TID, (Reported) Clindamycin HCl 300 Mg Capsule, 300 MG PO Q6H for 10 Days, #40 (Reported) 10 DAY SUPPLY FILLED 03-12-17 Ferrous Sulfate 325 Mg Tablet, 325 MG PO HS, (Reported) Hydrocodone/Acetaminophen 1 Each Tablet, 1-2 TAB PO Q4H PRN for PAIN-MODERATE, ( Reported) Insulin Glargine,Hum.rec.anlog 100 Unit/1 Ml Vial, 30 UNIT SQ HS, (Reported) Promethazine HCl 25 Mg Tablet, 25 MG PO Q6H PRN for NAUSEA/VOMITING-2ND LINE, ( Reported) Physical Exam-Cardiology Physical Exam Vital Signs/I&O Vital Sign - Last 12Hours 03/22/17 07:53 Temp 96.5 Pulse 75 Resp 20 B/P (MAP) 163/79 Pulse Ox 98 Intake and Output 03/22/17 00:00 Intake Total 1722.5 ml Output Total 1225 ml Balance 497.5 ml Capillary Refill : Constitutional: appears stated age, No apparent distress, well-developed, well- nourished HEENT: PERRL, No discharge, hearing is well preserved, oral hygience is good, No ulceration, No xanthelasmas are seen Neck: No carotid bruit, carotid pulses are 2 + bilaterally Respiratory: No accessory muscle use, No respiratory distress, chest expansion is symmetric, chest is bilaterally symmetric, other (good AE) Cardiovascular: regular rate-rhythm, No JVD, S1 and S2, systolic murmur (3/6) Gastrointestinal: No tender, soft, round, audible bowel sounds, No spleenomegaly Rectal: deferred Genital/Rectal: other (urinary catheter in place to DD with clear, yellow urine ) Extremities: No clubbing, No cyanosis, significant edema (mild bilat LE edema) Neurologic/Psychiatric: alert, oriented x 3, power is 5/5 both on sides Skin: No rash, No ulcerations, other (reported back wound which was not visualized d/t significant amount of pain reported by pt with movement) Data Review Labs Laboratory Tests 03/21/17 16:05: Glucometer 90 03/21/17 21:18: Glucometer 173H 03/22/17 06:14: Glucometer 115H 03/22/17 11:06: Thyroid Stimulating Hormone (TSH) 0.29L 03/22/17 11:23: Glucometer 86 Microbiology 03/16/17 Blood Culture - Final, Complete No growth 03/16/17 MRSA Screen - Final, Complete MRSA not isolated 03/17/17 Gram Stain - Final, Resulted 03/17/17 Anaerobic Culture - Preliminary, Resulted No anaerobes isolated 03/17/17 Surgical Culture - Preliminary, Resulted Streptococcus Viridans Radiology NAME: SERGEY DELA CRUZ MED REC#: [id number] PT STATUS: ADM IN : 1955 PHYSICIAN: SARAH CODY DO ADMIT DATE: 03/16/17 Signed Date of Exam: 03/16/17 CHEST 1 VIEW, AP/PA ONLY INDICATION: PICC line placement. Portable chest 1:16 PM. Left upper extremity PICC line tip projects over the SVC at the cavoatrial junction. Heart size and pulmonary vascularity are normal. Lungs are clear. There are no effusions or pneumothoraces. IMPRESSION: No acute abnormalities in the chest. Dictated by: Dictated on workstation # [id number] Dict: 03/16/17 1321 Trans: 03/16/17 1613 Interpreted by: AUDIE LOGAN Electronically signed by: AUDIE LOGAN 03/16/17 1619 A/P-Cardiology Assessment/Admission Diagnosis Cardiac systolic murmur due to AoV sclerosis without stenosis Echo of 03/22/17: LVEF 65%, AoV sclerosis and MAC w/o valvular stenoses No clinical or transthoracic evidence of endocarditis at this time Diabetes Hiatal hernia Post extensive back surgery with debridement x2 and wound vac - being managed per Dr. Villalta Probable COPD Quit smoking in 2000 Asthma Mild anemia - being managed by medical services Obesity with a BMI of 49.4 Discussion and Recomendations Complex management issue. She reports she was diagnosed with a "heart murmur" in August of 2016. She reports having an echocardiogram in [place], [place]. We will call for the echocardiogram. We will also do an echocardiogram to evaluate valvular status and LVEF. Tachycardia has improved with the addition of BB. We will continue. TSH today. EKG today. Monitor lab closely. Infection in back is being managed by medical and surgical services. Further recommendations will be based on her hospital course. We would like to thank the medical services for this consult. This consult is being scribed by Olamide Morillo APRN on behalf of Dr. Rose after discussion regarding plan of care. Clinical Quality Measures DVT/VTE Risk/Contraindication: Risk Factor Score Per Nursin RFS Level Per Nursing on Admit: 4+=Very High Contraindications-Pharm: Other *list below* Other: needs surgery Physician Assessment Physician Assessment Lung: fair bilat air entry Cor: reg with 2/6 EVELIN at card base A&R As documented in our note above that I updated at the time of this writing I had a detailed discussion with her regarding her card w/u and our treatment plan We are trying to obtain previous echo records TOR MORILLO Mar 22, 2017 11:28 MAIRA ROSE MD FACP [facility] Mar 22, 2017 15:45
--- NOTE | 2017-03-22 13:08 | Physical Therapy Progress Note ---
Therapy Progress Note Date Seen by Provider: Mar 22, 2017 Time Seen by Provider: 13:00 Patient declined PT this p.m. stating, "I just got back from my scan and I'm too drugged up to do anything." PT responded by stating therapy would return later on this date and the patient adamantly declined stating, "I'm not doing anything until this infection is gone." Education with patient on importance of exercise and mobility to prevent possible negative side effects, however, patient continued to decline. PT will attempt in a.m. 1 ref MILAGROS BENEDICT PT Mar 22, 2017 13:08
[2017-03-22] MEDS: IRON SUCROSE INJECTION 200 MG in NS (IVPB) 100 ML IV SCH (13:29)
--- NOTE | 2017-03-22 13:35 | Occupational Ther Daily Note ---
OT Current Status-Daily Note Subjective Pt lying in bed. Pt stated that PT just left, BEAN acknowledged this. Pt stated she has been busy all day and there has been people in and out of her room. Pt also stated that she was loopy from the pain killers, but still had intense pain with spasms. Pt continued to talk about how she "wiggled and used the bed rails to move to work on strength". Pt stated that she wanted to move and didn't want to not listen to us, but nobody would listen to her. Mental Status/Objective Functional Grant Measure 0=Not Assessed/NA 4=Minimal Assistance 1=Total Assistance 5=Supervision or Setup 2=Maximal Assistance 6=Modified Grant 3=Moderate Assistance 7=Complete Grant Other Treatment Pt demonstrated how she used the bed rails to pull herself up and wiggle on her side. Pt demonstrated how she could move her legs then sporadic muscle spasms. Pt was able to complete 25 shldr flexion without gravity or resistance, 2 spasms during. Pt continued to talk about how she is trying and that if they could get the pain under control that she would be able to do more. After therapy, pt lying on side in bed with call light/phone in reach. All needs met in room. OT Short Term Goals Short Term Goals 1=Demonstrate adherence to instructed precautions during ADL tasks. 2=Patient will verbalize/demonstrate understanding of assistive devices/ modifications for ADL. 3=Patient will improve strength/tolerance for activity to enable patient to perform ADL's. OT Fci Goals Fci Goals Time Frame: Apr 08, 2017 Eating (FIM): 6 Grooming(FIM): 6 Bathing(FIM): 6 Upper Body Dressing(FIM): 6 Lower Body Dressing(FIM): 6 Toileting(FIM): 6 Toilet/Commode Transfer(FIM): 6 Shower Transfer(FIM): 6 Additional Goals: 1-Demonstrate ADL Tasks, 2-Verbalize Understanding, 3- ImproveStrength/[place] 1=Demonstrate adherence to instructed precautions during ADL tasks. 2=Patient will verbalize/demonstrate understanding of assistive devices/ modifications for ADL. 3=Patient will improve strength/tolerance for activity to enable patient to perform ADL's. OT Education/Plan Problem List/Assessment Pt would benefit from skilled OT to increase her independence in basic self care to allow her to safely return home to live with her and to decrease caregiver burden. Discharge Recommendations Plan/Recommendations: Continue POC Treatment Plan/Plan of Care Patient would benefit from OT for education, treatment and training to promote independence in ADL's, mobility, safety and/or upper extremity function for ADL' s. Plan of Care: ADL Retraining, Functional Mobility, UE Funct Exercise/Act, UE Neuromus Re-Ed/Coord Treatment Duration: Apr 08, 2017 Visits Per Week: 5-6 Agreement: Yes Rehab Potential: Good Time/GCodes Start Time: 13:10 Stop Time: 13:25 Total Time Billed (hr/min): 15 Billed Treatment Time 1 visit-EX 1 (15 min) SERJIO MCKEON Mar 22, 2017 13:35
[2017-03-22] MEDS ORDERED: ALTEPLASE 2 MG (CATHFLO) ONE (14:02)
[2017-03-22] MEDS ORDERED: WATER (STERILE) FOR INJECTION 0 ML ONE (14:03)
--- NOTE | 2017-03-22 14:17 | Diagnostic Imaging Report ---
PROCEDURE: CT lumbar spine without contrast. TECHNIQUE: Multiple contiguous axial images were obtained through the lumbar spine without the use of intravenous contrast. Sagittal and coronal reformations were then performed. INDICATION: Postoperative pain. Patient had surgery in the back on the and 15 March. FINDINGS: There is evidence of prior laminectomy performed along L5 level and there is a posterior fusion hardware at L3-S1 levels with transpedicular screws and connecting rods in good position. There are disc spacers seen with suggestion of osseous fusion at L3/L4 level and L4/L5. L5/S1 does not demonstrate fusion and perhaps is a newly placed disc spacer. The S1 screws extend anterior to the anterior margin of the sacral ala and vertebral body margin of S1 with associated cortical step-off of the upper aspect of the S1 vertebral body. There is a fluid collection at the postoperative bed posterior to the thecal sac at L5 level. The collection is 4.6 x 3.9 x 3 cm in size. There are also small air-fluid levels seen around the posterior elements of L4 and L5 adjacent to the bone graft fragments. There is satisfactory alignment of the lumbar spine. The vertebral body heights are preserved. Significant disc height loss and vacuum phenomenon is seen at L1/L2 disc. IMPRESSION: There is fluid collection with air-fluid levels seen at the L5 laminectomy bed abutting the posterior margin of the thecal sac. Other air-fluid levels are also noted around the posterior elements near the bone graft material. Although the findings could be related to postoperative seroma, the amount of air is more than expected particularly after a week of surgery and possibility of infection is not ruled out. Correlate clinically. Dictated by: Dictated on workstation # [id number]
--- NOTE | 2017-03-22 15:16 | Progress Note-Standard ---
Standard Progress Note Progress Notes/Assess & Plan Time Seen by Provider: 15:15 Progress/Assessment & Plan CT reviewed of L spine Hardware ok Some air in post-operative site, but 5 days post-op with Pulse lavage irrigation , not terribly surprising. She may benefit from a pig tail catheter for a time. KAITLYNN LAFLEUR MD Mar 22, 2017 15:16
[2017-03-22 15:40] VITALS: BP 139/78
[2017-03-22] MEDS: FERROUS SULF 325 MG (IRON) TAB PO SCH (20:35)
[2017-03-22] MEDS: ONDANSETRON 4 MG/2 ML (SDV) Z0FRAN IVP PRN (20:35)
[2017-03-22] MEDS: hydrOXYzine (VISTARIL) 25 MG CAP PO PRN (22:06)
[2017-03-22] MEDS: ALPRAZolam 0.25 MG (XANAX) TAB PO PRN (22:06)
[2017-03-22] MEDS: diphenhydrAMINE 50 MG/ML INJ (BENADRYL) IVP PRN (22:29)
[2017-03-22] MEDS: inSUlin DETERMIR 1 UNIT/0.01 ML (LEVEMIR) CHARGE PER UNIT SQ SCH (23:05)
[2017-03-23] VITALS: BP 138/82
[2017-03-23] MEDS: HYDROmorphone (DILAUDID) 2 MG/ML VIAL IVP PRN ×5 (01:08→20:53)
[2017-03-23] MEDS: VANCOMYCIN 1250 MG/NS 250 ML IVPB IV SCH ×4 (02:07→14:09)
[2017-03-23] MEDS: diphenhydrAMINE 50 MG/ML INJ (BENADRYL) IVP PRN ×2 (02:08→20:53)
--- NOTE | 2017-03-23 05:35 | Progress Note (SOAP) ---
Subjective Date Seen by Provider: Mar 23, 2017 Time Seen by Provider: 05:35 Subjective/Events-last exam s/p lumbar surgical site I&D CT lumbar reveals fluid collection at L5 laminectomy. Patient scheduled for Radiologic guide drain placement today Review of Systems General: No Chills Gastrointestinal: No: Nausea Musculoskeletal: back pain, No: leg pain Neurological: No: Numbness, Weakness Objective Exam Vital Signs Date Time Temp Pulse Resp B/P (MAP) Pulse Ox O2 Delivery O2 Flow Rate FiO2 03/23/17 00:00 97.8 92 18 138/82 96 03/22/17 15:40 96.8 91 18 139/78 96 03/22/17 07:53 96.5 75 20 163/79 98 I & O 03/23/17 07:00 Intake Total 1070 ml Output Total 1300 ml Balance -230 ml Capillary Refill : General Appearance: No Apparent Distress, WD/WN Gastrointestinal: non tender, soft Extremity: Normal Capillary Refill Neurologic/Psychiatric: Alert, Oriented x3, No Motor/Sensory Deficits, Normal Mood/Affect, sewer hand II-XII Norm as Tested Skin: Other (Wound Vac in place) Results Lab Laboratory Tests 03/22/17 06:14: Glucometer 115H 03/22/17 11:06: Thyroid Stimulating Hormone (TSH) 0.29L 03/22/17 11:23: Glucometer 86 03/22/17 16:25: Glucometer 127H 03/22/17 20:34: Glucometer 123H Microbiology 03/16/17 Blood Culture - Final, Complete No growth 03/16/17 MRSA Screen - Final, Complete MRSA not isolated 03/17/17 Gram Stain - Final, Complete 03/17/17 Anaerobic Culture - Final, Complete No anaerobes isolated 03/17/17 Surgical Culture - Final, Complete Streptococcus Viridans Assessment/Plan Assessment/Plan Assess & Plan/Chief Complaint Lumbar surgical site infection Debilitation Drain placement today Clinical Quality Measures DVT/VTE Risk/Contraindication: Risk Factor Score Per Nursin RFS Level Per Nursing on Admit: 4+=Very High Contraindications-Pharm: Other *list below* Other: needs surgery ETHAN LAM Mar 23, 2017 05:35
[2017-03-23 05:49] LABS: BASOPHILS % (AUTO) 1 % (0-10); EOSINOPHILS # (AUTO) 0.8 10^3/uL (0.0-0.3); EOSINOPHILS % (AUTO) 9 % (0-10); LYMPHOCYTES # (AUTO) 1.2 X 10^3 (1.0-4.0); LYMPHOCYTES % (AUTO) 14 % (12-44); MEAN CORPUSCULAR HEMOGLOBIN 27 PG (25-34); MEAN CORPUSCULAR HGB CONC 30 G/DL (32-36); MEAN CORPUSCULAR VOLUME 91 FL (80-99); MEAN PLATELET VOLUME 8.3 FL (7.4-10.4); MONOCYTES # (AUTO) 0.8 X 10^3 (0.0-1.0); MONOCYTES % (AUTO) 9 % (0-12); NEUTROPHILS % (AUTO) 68 % (42-75); PLATELET COUNT 448 10^3/uL (130-400); RED BLOOD COUNT 3.49 10^6/uL (4.35-5.85); RED CELL DISTRIBUTION WIDTH 13.8 % (10.0-14.5); WHITE BLOOD COUNT 8.8 10^3/uL (4.3-11.0)
[2017-03-23] MEDS: HYDROcodone/APAP 7.5 MG/325 MG (LORTAB, LORCET PLUS) TABLET PO SCH ×3 (06:03→16:23)
[2017-03-23 06:10] LABS: ALANINE AMINOTRANSFERASE 19 U/L (0-55); ALBUMIN 3.1 G/DL (3.2-4.5); ANION GAP 13 MMOL/L (5-14); ASPARTATE AMINO TRANSFERASE 16 U/L (5-34); BILIRUBIN,TOTAL 0.3 MG/DL (0.1-1.0); BLOOD UREA NITROGEN 11 MG/DL (7-18); BUN/CREATININE RATIO 17; CALCIUM 9.3 MG/DL (8.5-10.1); CARBON DIOXIDE 26 MMOL/L (21-32); CHLORIDE 103 MMOL/L (98-107); CHOLESTEROL 157 MG/DL (< 200); CREATININE SERUM 0.65 MG/DL (0.60-1.30); DIRECT LDL 94 MG/DL (1-129); GFR ESTIMATED > 60; GLUCOSE 153 MG/DL (70-105); MAGNESIUM 1.7 MG/DL (1.8-2.4); SODIUM 142 MMOL/L (135-145); TOTAL PROTEIN 6.9 G/DL (6.4-8.2); TRIGLYCERIDES 189 MG/DL (<150); VLDL CHOLESTEROL 38 MG/DL (5-40)
[2017-03-23] MEDS: inSUlin ASPART (NovoLOG) 1 UNIT/0.01 ML (CHARGE PER UNIT) SC SCH ×3 (06:10→16:22)
--- NOTE | 2017-03-23 08:10 | ECHOCARDIOGRAPHY REPORT ---
DATE OF SERVICE: 03/21/2017 ECHOCARDIOGRAM ORDERING PHYSICIAN: Dr. Ortiz. OTHER PHYSICIAN: Dr. Owen Andrade PA. CLINICAL DIAGNOSIS: Cardiac murmur. MEASUREMENTS: Aortic root 2.7. LV diameter diastolic 3.7. IVS thickness, diastolic 0.9, LVPW thickness, diastolic 0.9. Left atrium 4 . DESCRIPTION: Two dimensional echocardiography shows normal global left ventricular systolic function with normal regional wall motion. Aortic, mitral and tricuspid valve leaflets show good leaflet excursion. There is mild mitral annular calcification and mild aortic valve sclerosis. Aortic valve leaflet structure is not well visualized. There is no evidence of endocarditis on this transthoracic echocardiographic study. Doppler imaging shows trivial tricuspid and mitral regurgitation. Mitral inflow is suggestive of grade I diastolic dysfunction of left ventricle. There is no evidence of significant intracardiac shunt on this transthoracic echocardiographic study. Inferior vena cava is of normal size and appears mostly collapsed on this study. CONCLUSIONS: 1. Normal global left ventricular systolic function with an ejection fraction approximately 65%. 2. Mild diastolic dysfunction of left ventricle is indicated on this study. 3. Trivial mitral and tricuspid regurgitation. 4. Mild aortic valve sclerosis and mitral annular calcification without evidence of significant valvular stenosis. 5. Pulmonary artery systolic pressure is estimated to be 20 to 25 mm. Job ID: [id number] DocumentID: [id number] Dictated Date: 03/22/2017 13:22:18 Chalk Molding Machine Operator Date: 03/22/2017 15:10:31 Dictated By: HEDY GARVEY MD, MA, FACP, FACC,
[2017-03-23 08:30] VITALS: BP 151/80
--- NOTE | 2017-03-23 08:49 | Progress Note-Cardiology ---
Cardiology SOAP Progress Note Subjective: Does not report cp or palp or syncope or shortness of breath at rest Objective: I&O/Vital Signs Vital Sign - Last 12Hours 03/23/17 03/23/17 00:00 08:30 Temp 97.8 97.1 Pulse 92 95 Resp 18 16 B/P (MAP) 138/82 151/80 Pulse Ox 96 95 Intake and Output 03/23/17 00:00 Intake Total 1070 ml Output Total 1300 ml Balance -230 ml Weight (Pounds): 261 Weight (Ounces): 6.0 Weight (Calculated Kilograms): 118.943908 Constitutional: appears stated age, No apparent distress, well-developed, well- nourished Respiratory: No accessory muscle use, No respiratory distress, chest expansion is symmetric, chest is bilaterally symmetric, other (good AE) Cardiovascular: regular rate-rhythm, No JVD, S1 and S2, systolic murmur (/) Gastrointestional: No tender, soft, round, audible bowel sounds, No spleenomegaly Genital/Rectal: other (urinary catheter in place to DD with clear, yellow urine ) Extremities: No clubbing, No cyanosis, significant edema (mild bilat LE edema) Neurologic/Psychiatric: alert, oriented x 3, power is 5/5 both on sides Skin: No rash, No ulcerations, other (reported back wound which was not visualized d/t significant amount of pain reported by pt with movement) Results/Procedures: Labs Laboratory Tests 03/22/17 11:06: Thyroid Stimulating Hormone (TSH) 0.29L 03/22/17 11:23: Glucometer 86 03/22/17 16:25: Glucometer 127H 03/22/17 20:34: Glucometer 123H 03/23/17 05:32: White Blood Count 8.8, Red Blood Count 3.49L, Hemoglobin 9.5L, Hematocrit 32L, Mean Corpuscular Volume 91, Mean Corpuscular Hemoglobin 27, Mean Corpuscular Hemoglobin Concent 30L, Red Cell Distribution Width 13.8, Platelet Count 448H, Mean Platelet Volume 8.3, Neutrophils (%) (Auto) 68, Lymphocytes (%) (Auto) 14, Monocytes (%) (Auto) 9, Eosinophils (%) (Auto) 9, Basophils (%) (Auto) 1, Neutrophils # (Auto) 6.0, Lymphocytes # (Auto) 1.2, Monocytes # (Auto) 0.8, Eosinophils # (Auto) 0.8H, Basophils # (Auto) 0.0, Sodium Level 142, Potassium Level 4.0, Chloride Level 103, Carbon Dioxide Level 26, Anion Gap 13, Blood Urea Nitrogen 11, Creatinine 0.65, Estimat Glomerular Filtration Rate > 60, BUN/ Creatinine Ratio 17, Glucose Level 153H, Calcium Level 9.3, Magnesium Level 1.7L , Total Bilirubin 0.3, Aspartate Amino Transf (AST/SGOT) 16, Alanine Aminotransferase (ALT/SGPT) 19, Alkaline Phosphatase 85, Total Protein 6.9, Albumin 3.1L, Triglycerides Level 189H, Cholesterol Level 157, LDL Cholesterol Direct 94, VLDL Cholesterol 38, HDL Cholesterol 25L 03/23/17 05:59: Glucometer 137H Microbiology 03/16/17 Blood Culture - Final, Complete No growth 03/16/17 MRSA Screen - Final, Complete MRSA not isolated 03/17/17 Gram Stain - Final, Complete 03/17/17 Anaerobic Culture - Final, Complete No anaerobes isolated 03/17/17 Surgical Culture - Final, Complete Streptococcus Viridans Laboratory Tests 03/23/17 05:32 A/P: Assessment: Lumbar surgical site infection, being managed by the Surgical and Hospitalist Svces Cardiac systolic murmur due to AoV sclerosis without stenosis Echo of 03/22/17: LVEF 65%, AoV sclerosis and MAC w/o valvular stenoses No clinical or transthoracic evidence of endocarditis at this time Diabetes Hiatal hernia Post extensive back surgery with debridement x2 and wound vac - being managed per Dr. Villalta Probable COPD Quit smoking in 2000 Asthma Anemia - being managed by medical services Obesity with a BMI of 49.4 Plan: I discussed with her the echo findings that are summarized above I answered her questions We are trying to obtain the echo that she states she had done at [facility] Mar 23, 2017 08:49
[2017-03-23] MEDS: LACTULOSE SYRUP 10GM/15ML (ENULOSE) 30ML UDC PO SCH ×3 (09:44→20:51)
[2017-03-23] MEDS: BACLOFEN 10 MG (LIORESAL) TAB PO SCH ×3 (09:44→20:52)
[2017-03-23] MEDS: SENNA W/DOCUSATE (SENOKOT S) TABLET PO SCH ×2 (09:46→20:51)
[2017-03-23] MEDS: POLYETHYLENE GLYCOL 17 GM (MIRALAX) PACK PO SCH ×2 (09:46→20:51)
[2017-03-23] MEDS: ENOXAPARIN 40 MG/0.4 ML (LOVENOX) SYR SC SCH (09:47)
[2017-03-23] MEDS: meTOprolol TARTRATE 25 MG (LOPRESSOR) TABLET PO SCH ×2 (10:02→20:52)
--- NOTE | 2017-03-23 10:37 | Progress Note-Hospitalist ---
Progress Note HPI/CC on Admission CC: Drainage from lumbar spinal surgical site HPI: This is a 61 yoWF pt of Brad Andrade known to me from [facility] admission for lumbar spine surgery on 03/01/17. Pt has had a very slow recovery and began having redness and drainage. Pt was started on Keflex in [place] [facility] Tuesday and seen by Dr. Villalta in his office yesterday. She was a direct admit to [facility]. PICC line was placed and pt was empirically started on Vanc and Cefepime. WBC 7.7, Hgb 7.0, ESR 140, iron 12. 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 pipe chipper: Surgery today 1400 Patient Interview: Pt is experiencing severe pain Pt has not been able to ambulate because of the pain Physical exam stable. Lungs sound perfect Labs were discussed with the pt and she was informed that she will continue having iron treatments Pt has been having bowel movements Pt was informed that she will continue to antibiotics Pt states that she has not been comfortable and this has inhibited her movement. Pt states that she has been sticking to the bed Pt states that she has been sleeping well Scribed by Marion Miguel under the direct supervision of Dr. Cody. Progress Notes/Assess & Plan Date Seen 03/23/17 Time Seen by Provider: 10:00 Admission Dx/Process Assessment: Lumbar spine surgical site drainage and inflammation empirically covering with IV antibiotics POD # 16 in need of I&D today Slow recovery and overall chronic debilitation Obstructive sleep apnea noncompliant with the Pap Hiatal hernia GERD History of peptic ulcers Osteoarthritis next number diabetes mellitus Chronic heart murmur Iron deficiency anemia COPD Diagonsis/Assessment & Plan Attempted to find a better bed but there is no other type of bed that is harder than she has now Fluid collection on CT scan noted to having drain placed by IR today Started on Lovenox for DVT Px since Dr Villalta approved but held due to procedure today ECHO reviewed and no evidence of endocarditis and I appreciate Dr Rose consultation AFVSS, Pleasant, improved overall Tachycardic 92 regular no change to 3/6 murmur, CTAB no rales noted No edema Assessment: Lumbar spine surgical site drainage with Strep and Staph on IV antibiotics POD # 22 s/p I&D POD # 6 now with wound vac placement D # 2 but now having drain placed by IR today to drain fluid collection Slow recovery and overall chronic debilitation Obstructive sleep apnea noncompliant with CPAP Hiatal hernia GERD History of peptic ulcers Osteoarthritis Chronic heart murmur Iron deficiency anemia receiving iron infusions COPD Tachycardia likely due to deconditioning improved on BB DM improved when increased insulin yesterday Post op constipation resolved Plan: Continue antibiotics empiric coverage for 6 weeks total Check labs in am IV iron PT/OT Maintain Lopressor PO - Metoprolol 25 BID Lovenox Bowel regimen to continue DC SSI and add Novolog 10 units before meals maintained Hopefully pain will be improved after drain is placed SARAH CODY DO Mar 23, 2017 10:37
--- NOTE | 2017-03-23 12:01 | Physical Therapy Daily Note ---
PT Daily Note-Current Subjective Pt. in bed on right side and states she expects to leave soon for a procedure. Pt. states she cant really participate in therapies until she is not in so much pain. Pt. agrees to isometric exercises (after isometric concept was explained ) as well as active ROM within her comfort zone. Pt. explains that she just had wound vacc care. Pain Numeric Pain Scale: 9 Location: Medial Location Body Site: Back Pain Description: Pressure Appearance on right side with [place] attached, pillows for support Mental Status Patient Orientation: Normal For Age Attachments: Other-See Comments (wound vacc) Transfers Functional [place] Measure 0=Not Assessed/NA 4=Minimal Assistance 1=Total Assistance 5=Supervision or Setup 2=Maximal Assistance 6=Modified [place] 3=Moderate Assistance 7=Complete IndependenceIRFPAI Quality Coding Scale 6 Independent with activity with or without an assistive device 5 Patient requires set up or clean up by helper. Patient completes activity by themselves 4 Supervision or touching assist (CGA). [place] provide cues , steadying assist 3 The helper provides less than half the effort to complete the activity 2 The helper provides more than half the effort to complete the activity 1 Dependent. The helper does all the effort to complete an activity 7 Patient refused to complete or attempt activity 9 The patient did not perform the activity before the current illness or injury 88 Not attempted due to Medical conditions or safety concerns pt. declined all TRFs or attempt to stand etc stating her pain is too severe Exercises Supine Ex: Ankle pumps, Quad Set Supine Reps: 15 isometric exercises U&L with education and instruction all x12 Treatments pt. requested "rub my back on the right" this was done gentle to right paraspinal area Assessment Current Status: Fair Progress pt. declines any real mobility ie TRFs etc or stance secondary to pain, but pt. does not appear to be in this level of pain. FSP-R pain scale =0 PT [employer] Goals Alf Goals PT Alf Goals Time Frame: Mar 25, 2017 Transfers (B,C,W/C) (FIM): 4 Gait (FIM): 1 Gait distance (FIM): 1=up to 49 ft Distance: 50' Gait Level of Assist: 5 Gait Assistive Device: FWW PT Plan Treatment/Plan Treatment Plan: Continue Plan of Care Treatment Plan: Bed Mobility, Education, Functional Activity [place], Functional Strength, Gait, Safety, Therapeutic Exercise, Transfers Treatment Duration: Mar 25, 2017 Visits Per Week: 6 Safety Risks/Education Teaching Methods: Demonstration Response to Teaching: Verbalize Understanding, Return Demonstration Time/GCodes Time In: 1130 Time Out: 1140 Total Billed Treatment Time: 10 Total Billed Treatment 1,EX10m G Codes Necessary: TRINA Park COAT ROOM ATTENDANT Mar 23, 2017 12:01
[2017-03-23] MEDS ORDERED: fentaNYL INJECTION 100 MCG/2 ML AMP ONE (13:22)
[2017-03-23] MEDS ORDERED: LIDOCAINE 1% INJ 20 ML (XYLOCAINE) VIAL ONE (13:22)
--- NOTE | 2017-03-23 15:12 | Occ Therapy Progress Note ---
Therapy Progress Note Date Seen by Provider: Mar 23, 2017 Time Seen by Provider: 14:40 Pt stated that she has messed up her CT scan. Stated that she couldn't do it because of the pain it would cause. Refused therapy and stated then demonstrated she could move her arms just fine. Pt continued to state way she couldn't do the CT scan until nrsg came in to give her pain meds. SERJIO MCKEON Mar 23, 2017 15:12
[2017-03-23 16:14] VITALS: BP 168/81
[2017-03-23] MEDS: FERROUS SULF 325 MG (IRON) TAB PO SCH (20:52)
[2017-03-23] MEDS: inSUlin DETERMIR 1 UNIT/0.01 ML (LEVEMIR) CHARGE PER UNIT SQ SCH (20:52)
[2017-03-24 00:20] VITALS: BP 142/78
[2017-03-24] MEDS: HYDROcodone/APAP 7.5 MG/325 MG (LORTAB, LORCET PLUS) TABLET PO SCH ×4 (00:21→18:21)
[2017-03-24] MEDS: hydrOXYzine (VISTARIL) 25 MG CAP PO PRN (00:21)
[2017-03-24] MEDS: ALPRAZolam 0.25 MG (XANAX) TAB PO PRN (00:21)
[2017-03-24] MEDS: diphenhydrAMINE 50 MG/ML INJ (BENADRYL) IVP PRN ×3 (01:10→14:08)
[2017-03-24] MEDS: HYDROmorphone (DILAUDID) 2 MG/ML VIAL IVP PRN ×8 (01:10→18:46)
[2017-03-24] MEDS: VANCOMYCIN 1250 MG/NS 250 ML IVPB IV SCH ×4 (03:20→12:58)
--- NOTE | 2017-03-24 07:06 | Progress Note (SOAP) ---
Subjective Time Seen by Provider: 07:02 Subjective/Events-last exam Complaints are unchanged, back/butt butt sticking to sheets, not able to move itching pain control Objective Exam Vital Signs Date Time Temp Pulse Resp B/P (MAP) Pulse Ox O2 Delivery O2 Flow Rate FiO2 03/24/17 00:20 97.8 106 16 142/78 97 03/23/17 16:14 99.3 104 18 168/81 94 03/23/17 08:30 97.1 95 16 151/80 95 I & O 03/24/17 07:00 Intake Total 510 ml Output Total 1775 ml Balance -1265 ml Capillary Refill : General Appearance: No Apparent Distress Cardiovascular: Normal Peripheral Pulses Gastrointestinal: soft, no organomegaly Extremity: Non Tender, No Calf Tenderness Neurologic/Psychiatric: Alert, Oriented x3, No Motor/Sensory Deficits Other comments She is very comfortable appearing, talks, communicates in very little apparent pain. Results Lab Laboratory Tests 03/23/17 10:47: Glucometer 149H 03/23/17 16:30: Glucometer 179H 03/23/17 20:39: Glucometer 116H 03/24/17 05:03: Glucometer 155H Microbiology 03/16/17 Blood Culture - Final, Complete No growth 03/16/17 MRSA Screen - Final, Complete MRSA not isolated 03/17/17 Gram Stain - Final, Complete 03/17/17 Anaerobic Culture - Final, Complete No anaerobes isolated 03/17/17 Surgical Culture - Final, Complete Streptococcus Viridans Assessment/Plan Assessment/Plan Assess & Plan/Chief Complaint S/P lumbar fusion with post-op infection Pain control Morbid Obesity Plan: patient refused pigtail catheter yesterday. I'm at a crossroads, clinically she seems to be improving, but subjectively she is absoutly no better and CT scan raised the question of fluid collection on the spine which maybe causing compression and pain. Therefor I'm left feeling like we must take a second look to be doubly sure that there is no persistent infection or compression from fluid causing all her pain. I will check some labs and plan to return this afternoon for repeat I&D. Clinical Quality Measures DVT/VTE Risk/Contraindication: Risk Factor Score Per Nursin RFS Level Per Nursing on Admit: 4+=Very High Contraindications-Pharm: Other *list below* Other: needs surgery KAITLYNN LAFLEUR MD Mar 24, 2017 07:06
[2017-03-24 07:39] LABS: BASOPHILS % (AUTO) 0 % (0-10); EOSINOPHILS % (AUTO) 10 % (0-10); LYMPHOCYTES # (AUTO) 1.3 X 10^3 (1.0-4.0); LYMPHOCYTES % (AUTO) 12 % (12-44); MEAN CORPUSCULAR HEMOGLOBIN 27 PG (25-34); MEAN CORPUSCULAR HGB CONC 30 G/DL (32-36); MEAN CORPUSCULAR VOLUME 90 FL (80-99); MEAN PLATELET VOLUME 8.6 FL (7.4-10.4); MONOCYTES # (AUTO) 1.1 X 10^3 (0.0-1.0); MONOCYTES % (AUTO) 10 % (0-12); NEUTROPHILS # (AUTO) 6.8 X 10^3 (1.8-7.8); NEUTROPHILS % (AUTO) 67 % (42-75); PLATELET COUNT 409 10^3/uL (130-400); RED BLOOD COUNT 3.76 10^6/uL (4.35-5.85); WHITE BLOOD COUNT 10.1 10^3/uL (4.3-11.0)
[2017-03-24 08:03] LABS: ERYTHROCYTE SEDIMENTATION RATE 115 MM/HR (0-30)
--- NOTE | 2017-03-24 08:31 | Progress Note-Cardiology ---
Cardiology SOAP Progress Note Subjective: In bed. No c/o CP, SOB or palpitations. C/O back pain, which is unchanged. C/ O left hip pain which is unchanged. Objective: I&O/Vital Signs Vital Sign - Last 12Hours 03/24/17 03/24/17 00:20 08:43 Temp 97.8 96.8 Pulse 106 108 Resp 16 20 B/P (MAP) 142/78 131/89 Pulse Ox 97 98 Intake and Output 03/24/17 00:00 Intake Total 510 ml Output Total 1775 ml Balance -1265 ml Weight (Pounds): 271 Weight (Ounces): 9.0 Weight (Calculated Kilograms): 123.227372 Constitutional: appears stated age, No apparent distress, well-developed, well- nourished Respiratory: No accessory muscle use, No respiratory distress, chest expansion is symmetric, chest is bilaterally symmetric, other (good AE) Cardiovascular: regular rate-rhythm, No JVD, S1 and S2, systolic murmur (3/6) Gastrointestional: No tender, soft, round, audible bowel sounds, No spleenomegaly Genital/Rectal: other (urinary catheter in place to DD with clear, yellow urine ) Extremities: No clubbing, No cyanosis, significant edema (mild bilat LE edema) Neurologic/Psychiatric: alert, oriented x 3, power is 5/5 both on sides Skin: No rash, No ulcerations, other (reported back wound which was not visualized d/t significant amount of pain reported by pt with movement) Results/Procedures: Labs Laboratory Tests 03/23/17 16:30: Glucometer 179H 03/23/17 20:39: Glucometer 116H 03/24/17 05:03: Glucometer 155H 03/24/17 07:24: White Blood Count 10.1, Red Blood Count 3.76L, Hemoglobin 10.3L, Hematocrit 34L , Mean Corpuscular Volume 90, Mean Corpuscular Hemoglobin 27, Mean Corpuscular Hemoglobin Concent 30L, Red Cell Distribution Width 14.0, Platelet Count 409H, Mean Platelet Volume 8.6, Neutrophils (%) (Auto) 67, Lymphocytes (%) (Auto) 12, Monocytes (%) (Auto) 10, Eosinophils (%) (Auto) 10, Basophils (%) (Auto) 0, Neutrophils # (Auto) 6.8, Lymphocytes # (Auto) 1.3, Monocytes # (Auto) 1.1H, Eosinophils # (Auto) 1.0H, Basophils # (Auto) 0.0, Erythrocyte Sedimentation Rate 115H, C-Reactive Protein High Sensitivity 6.94H 03/24/17 11:03: Glucometer 144H Microbiology 03/16/17 Blood Culture - Final, Complete No growth 03/16/17 MRSA Screen - Final, Complete MRSA not isolated 03/17/17 Gram Stain - Final, Complete 03/17/17 Anaerobic Culture - Final, Complete No anaerobes isolated 03/17/17 Surgical Culture - Final, Complete Streptococcus Viridans A/P: Assessment: Lumbar surgical site infection, being managed by the Surgical and Hospitalist Svces Cardiac systolic murmur due to AoV sclerosis without stenosis Echo of 03/22/17: LVEF 65%, AoV sclerosis and MAC w/o valvular stenoses No clinical or transthoracic evidence of endocarditis at this time Diabetes Hiatal hernia Post extensive back surgery with debridement x2 and wound vac - being managed per Dr. Villalta Probable COPD Quit smoking in 2000 Asthma Anemia - being managed by medical services Obesity with a BMI of 49.4 Plan: No new cardiac rec at this time We are trying to obtain the echo that she states she had done at [facility] Physician Assessment Physician Assessment Lungs: good air entry; somewhat diminished at the bases Cor: reg [facility] has informed us that they don't have cardiac records or echo on her A&R * As documented in our note above * I spoke with her and answered questions TOR MYERS Mar 24, 2017 08:31 HEDY GARVEY MD FACP [facility] [place] Mar 24, 2017 11:15
--- NOTE | 2017-03-24 08:36 | Progress Note-Hospitalist ---
Progress Note HPI/CC on Admission CC: Drainage from lumbar spinal surgical site HPI: This is a 61 yoWF pt of Brad Andrade known to me from [facility] admission for lumbar spine surgery on 03/01/17. Pt has had a very slow recovery and began having redness and drainage. Pt was started on Keflex in [place] ER Tuesday and seen by Dr. Villalta in his office yesterday. She was a direct admit to [facility]. PICC line was placed and pt was empirically started on Vanc and Cefepime. WBC 7.7, Hgb 7.0, ESR 140, iron 12. 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 manager audio: Surgery today 1400 Patient Interview: Pt is experiencing severe pain Pt has not been able to ambulate because of the pain Physical exam stable. Lungs sound perfect Labs were discussed with the pt and she was informed that she will continue having iron treatments Pt has been having bowel movements Pt was informed that she will continue to antibiotics Pt states that she has not been comfortable and this has inhibited her movement. Pt states that she has been sticking to the bed Pt states that she has been sleeping well Scribed by Marion Miguel under the direct supervision of Dr. Cody. Progress Notes/Assess & Plan Date Seen 03/24/17 Time Seen by Provider: 11:30 Admission Dx/Process Assessment: Lumbar spine surgical site drainage and inflammation empirically covering with IV antibiotics POD # 16 in need of I&D today Slow recovery and overall chronic debilitation Obstructive sleep apnea noncompliant with the Pap Hiatal hernia GERD History of peptic ulcers Osteoarthritis next number diabetes mellitus Chronic heart murmur Iron deficiency anemia COPD Diagonsis/Assessment & Plan Echocardiogram completed Ready for surgery today to remove fluid collection by Dr. Villalta Antibiotics remain Endocarditis not suspected per cardiology services Sedimentation rate down to 114 and white count remains normal Trying to move especially canned but the fluid collection pressing on thecal sac makes it difficult Maintain on Lovenox for DVT prophylaxis since in mobile AFVSS, Pleasant, improved overall Tachycardic 92 regular no change to 3/6 murmur, CTAB no rales noted No edema Assessment: Lumbar spine surgical site drainage with Strep and Staph on IV antibiotics POD # 23 s/p I&D POD # 7 now with wound vac placement D # 3 but now having I&D today to drain fluid collection Slow recovery and overall chronic debilitation Obstructive sleep apnea noncompliant with CPAP Hiatal hernia GERD History of peptic ulcers Osteoarthritis Chronic heart murmur Iron deficiency anemia receiving iron infusions COPD Tachycardia likely due to deconditioning improved on BB DM improved when increased insulin yesterday Post op constipation resolved Plan: Continue antibiotics empiric coverage for 6 weeks total Check labs in am IV iron PT/OT Maintain Lopressor PO - Metoprolol 25 BID Lovenox Bowel regimen to continue DC SSI and add Novolog 10 units before meals maintained Hopefully pain will be improved after I&D SARAH CODY DO Mar 24, 2017 08:36
[2017-03-24 08:43] VITALS: BP 131/89
[2017-03-24] MEDS: POLYETHYLENE GLYCOL 17 GM (MIRALAX) PACK PO SCH ×2 (09:19→21:43)
[2017-03-24] MEDS: LACTULOSE SYRUP 10GM/15ML (ENULOSE) 30ML UDC PO SCH ×3 (09:19→21:43)
[2017-03-24] MEDS: BACLOFEN 10 MG (LIORESAL) TAB PO SCH ×3 (09:19→21:45)
[2017-03-24] MEDS: SENNA W/DOCUSATE (SENOKOT S) TABLET PO SCH ×2 (09:20→21:43)
--- NOTE | 2017-03-24 09:38 | Diagnostic Imaging Report ---
INDICATION: Leg pain. EXAMINATIONS: Both grayscale and color Doppler imaging of the deep veins of the lower extremities were performed with waveform analysis. FINDINGS: There is no intraluminal filling defect. Normal continuous flow is seen throughout the deep venous systems of both legs, and there is normal response to augmentation. The deep veins compress normally. IMPRESSION: No ultrasound evidence of deep venous thrombosis in either lower extremity. Dictated by: Dictated on workstation # [id number]
[2017-03-24] MEDS: meTOprolol TARTRATE 25 MG (LOPRESSOR) TABLET PO SCH ×3 (10:49→21:45)
[2017-03-24] MEDS: inSUlin ASPART (NovoLOG) 1 UNIT/0.01 ML (CHARGE PER UNIT) SC SCH ×3 (11:10→17:46)
[2017-03-24] MEDS: IRON SUCROSE INJECTION 200 MG in NS (IVPB) 100 ML IV SCH (12:31)
--- NOTE | 2017-03-24 12:48 | Physical Therapy Progress Note ---
Therapy Progress Note Date Seen by Provider: Mar 24, 2017 Time Seen by Provider: 12:47 Patient to have I&D this p.m. PT to attempt later today or in a.m. MILAGROS BENEDICT PT Mar 24, 2017 12:48
[2017-03-24] MEDS ORDERED: LIDOCAINE PF 2% 5 ML (XYLOCAINE) VIAL ONE (14:46)
[2017-03-24] MEDS ORDERED: SEVOFLURANE (ULTANE) 15 ML INHAL SOLN ONE ×2 (14:46→16:44)
[2017-03-24] MEDS ORDERED: LACTATED RINGERS 1,000 ML IV ONE (14:46)
[2017-03-24] MEDS ORDERED: fentaNYL INJECTION 100 MCG/2 ML AMP ONE ×3 (14:46→16:20)
[2017-03-24] MEDS ORDERED: ONDANSETRON 4 MG/2 ML (SDV) Z0FRAN ONE (14:46)
[2017-03-24] MEDS ORDERED: ROCURONIUM 50 MG/5 ML (ZEMURON) VIAL IV ONE (14:46)
[2017-03-24] MEDS ORDERED: proPOfol 200 MG/20 ML (DIPRIVAN) VIAL IV ONE (14:46)
[2017-03-24] MEDS ORDERED: MIDAZOLAM 2 MG/2 ML (VERSED) VIAL ONE (14:47)
--- NOTE | 2017-03-24 14:50 | Occ Therapy Progress Note ---
Therapy Progress Note Patient to have I&D this p.m. OT to check on pt tomorrow. [id number] SERJIO MCKEON Mar 24, 2017 14:50
[2017-03-24] MEDS ORDERED: GENTAMICIN 40 MG/ML 2 ML INJ SDV ONE (16:05)
[2017-03-24] MEDS ORDERED: MEPERIDINE (DEMEROL) INJ 50 MG/ML ONE (16:18)
[2017-03-24] MEDS ORDERED: PROMETHAZINE INJ 25 MG/ML (PHENERGAN) AMP ONE (16:18)
[2017-03-24] MEDS ORDERED: VANCOMYCIN 1000 MG/VIAL ONE (16:25)
[2017-03-24] MEDS ORDERED: PHENYLEPHRINE 100 MCG/ML 10 ML (ANESTHESIA) SYR ONE (16:44)
[2017-03-24] MEDS ORDERED: CLINDAMYCIN INJECTION 600 MG in NS (IVPB) 50 ML IV NR (17:00)
--- NOTE | 2017-03-24 17:14 | Progress Note-Post Operative ---
Post-Operative Progess Note Surgeon (s)/Balance Assembler (s) Surgeon KAITLYNN LAFLEUR MD Balance Assembler: REYNALDO Soliz Pre-Operative Diagnosis Lumbar Wound Infection Post-Operative Diagnosis Same Procedure & Operative Findings Date of Procedure 03/24/17 Procedure Performed/Findings Repeat Irrigation and debridement lumbar spine Anesthesia Type GETA Estimated Blood Loss Estimated blood loss (mL): minimal Specimens/Packing Specimens Removed cultures KAITLYNN LAFLEUR MD Mar 24, 2017 5:14 pm
[2017-03-24] MEDS ORDERED: ONDANSETRON 4 MG/2 ML (SDV) Z0FRAN IVP PRN (17:15)
[2017-03-24] MEDS: MEPERIDINE (DEMEROL) INJ 50 MG/ML IVP PRN ×2 (17:28→17:43)
[2017-03-24 18:18] VITALS: BP 125/69
[2017-03-24 19:50] VITALS: BP 132/63
[2017-03-24] MEDS: FERROUS SULF 325 MG (IRON) TAB PO SCH (21:45)
[2017-03-24] MEDS: inSUlin DETERMIR 1 UNIT/0.01 ML (LEVEMIR) CHARGE PER UNIT SQ SCH (21:50)
[2017-03-25] VITALS: BP 132/63
[2017-03-25] MEDS: HYDROcodone/APAP 7.5 MG/325 MG (LORTAB, LORCET PLUS) TABLET PO SCH ×4 (00:24→17:41)
[2017-03-25] MEDS: HYDROmorphone (DILAUDID) 2 MG/ML VIAL IVP PRN ×4 (01:41→17:41)
[2017-03-25] MEDS: VANCOMYCIN 1250 MG/NS 250 ML IVPB IV SCH ×2 (01:42)
--- NOTE | 2017-03-25 02:58 | OPERATIVE REPORT ---
DATE OF SERVICE: 03/24/2017 PREOPERATIVE DIAGNOSIS: Lumbar wound infection. POSTOPERATIVE DIAGNOSIS: Lumbar wound infection. PROCEDURE PERFORMED: Repeat irrigation and debridement of lumbar wound. DATE AND TIME OF SURGERY: Please see anesthesia record. SURGEON: Ilir Villalta MD. REAL PROPERTY APPRAISER: YAMILE Soliz. ROLE OF LINUX SYSTEM ENGINEER: Aid in retraction in the procedure, aid in wound closure. ANESTHESIA: General endotracheal. ESTIMATED BLOOD LOSS: Minimal. INTRAVENOUS FLUIDS: Please see anesthesia for antibiotics. COMPLICATIONS: None. INDICATIONS FOR PROCEDURE: The patient is a 61-year-old female, previous I and D. She is just not responding as expected and therefore a repeat look and repeat I and D is recommended and patient concurred. DESCRIPTION OF PROCEDURE: The patient was taken to the preoperative holding area and brought back to the operative suite after adequate induction of general anesthetic. Preoperative antibiotics were given, turned prone on the Kristian table with careful padding to all extremities, sterilely prepped and draped posterior lumbar spine. Wound VAC was removed and deep sutures were removed and turbid fluid was again encountered deep. Pulse lavage irrigation was utilized. The wound bed was debrided. The hardware was pulse lavage irrigated with antibiotic enhanced irrigation and abundant irrigant was utilized. A deep drain was placed to the wound. The facia was then closed and wound VAC was reapplied. The patient was transferred to recovery room in stable condition having tolerated the procedure well. Job ID: [id number] DocumentID: [id number] Dictated Date: 03/24/2017 17:15:03 Secretary Administrative Assistant Date: 03/24/2017 22:22:20 Dictated By: ILIR VILLALTA MD
[2017-03-25] MEDS: hydrOXYzine (VISTARIL) 25 MG CAP PO PRN ×2 (05:15→22:15)
[2017-03-25] MEDS: inSUlin ASPART (NovoLOG) 1 UNIT/0.01 ML (CHARGE PER UNIT) SC SCH ×4 (06:12→17:24)
[2017-03-25 08:27] VITALS: BP 132/58
--- NOTE | 2017-03-25 08:39 | Progress Note-Cardiology ---
Cardiology SOAP Progress Note Subjective: C/O right leg and back spasms. No c/o CP, dyspnea, palpitations. Objective: I&O/Vital Signs Vital Sign - Last 12Hours 03/25/17 03/25/17 08:27 09:00 Temp 97.0 Pulse 113 Resp 22 B/P (MAP) 132/58 Pulse Ox 95 95 Intake and Output 03/25/17 00:00 Intake Total 551.5 ml Output Total 1410 ml Balance -858.5 ml Weight (Pounds): 271 Weight (Ounces): 9.0 Weight (Calculated Kilograms): 123.389896 Constitutional: appears stated age, No apparent distress, well-developed, well- nourished Respiratory: No accessory muscle use, No respiratory distress, chest expansion is symmetric, chest is bilaterally symmetric, other (good AE) Cardiovascular: regular rate-rhythm, No JVD, S1 and S2, systolic murmur (12/20) Gastrointestional: No tender, soft, round, audible bowel sounds, No spleenomegaly Genital/Rectal: other (urinary catheter in place to DD with clear, yellow urine ) Extremities: No clubbing, No cyanosis, significant edema (mild bilat LE edema) Neurologic/Psychiatric: alert, oriented x 3, power is 5/5 both on sides Skin: No rash, No ulcerations, other (reported back wound which was not visualized d/t significant amount of pain reported by pt with movement; wound vac and WILLIAM drain to the back in place) Results/Procedures: Labs Laboratory Tests 03/24/17 20:46: Glucometer 153H 03/25/17 05:13: Glucometer 175H 03/25/17 10:34: Glucometer 120H 03/25/17 13:10: Microbiology 03/16/17 Blood Culture - Final, Complete No growth 03/16/17 MRSA Screen - Final, Complete MRSA not isolated 03/17/17 Gram Stain - Final, Complete 03/17/17 Anaerobic Culture - Final, Complete No anaerobes isolated 03/17/17 Surgical Culture - Final, Complete Streptococcus Viridans A/P: Assessment: Lumbar surgical site infection, being managed by the Surgical and Hospitalist Svces Cardiac systolic murmur due to AoV sclerosis without stenosis Echo of 03/22/17: LVEF 65%, AoV sclerosis and MAC w/o valvular stenoses No clinical or transthoracic evidence of endocarditis at this time Diabetes Hiatal hernia Post extensive back surgery with debridement x2 and wound vac - being managed per Dr. Villalta Probable COPD Quit smoking in 2000 Asthma Anemia - being managed by medical services Obesity with a BMI of 49.4 Plan: No new cardiac rec at this time Continue current regimen Physician Assessment Physician Assessment Lungs: good air entry, except diminished at the bases Cor: reg A&R * As documented in our note above TOR MYERS MORGUE TECHNICIAN Mar 25, 2017 08:39 HEDY GARVEY MD FACP [facility] Mar 25, 2017 13:37
[2017-03-25] MEDS: LACTULOSE SYRUP 10GM/15ML (ENULOSE) 30ML UDC PO SCH ×3 (09:14→22:15)
[2017-03-25] MEDS: SENNA W/DOCUSATE (SENOKOT S) TABLET PO SCH ×2 (09:14→22:16)
[2017-03-25] MEDS: meTOprolol TARTRATE 25 MG (LOPRESSOR) TABLET PO SCH ×2 (09:15→22:15)
[2017-03-25] MEDS: BACLOFEN 10 MG (LIORESAL) TAB PO SCH ×3 (09:15→22:16)
[2017-03-25] MEDS: POLYETHYLENE GLYCOL 17 GM (MIRALAX) PACK PO SCH ×2 (09:15→22:16)
--- NOTE | 2017-03-25 10:35 | Progress Note (SOAP) ---
Subjective Time Seen by Provider: 10:33 Subjective/Events-last exam Feeling much better today, Pain improved Objective Exam Vital Signs Date Time Temp Pulse Resp B/P (MAP) Pulse Ox O2 Delivery O2 Flow Rate FiO2 03/25/17 09:00 95 03/25/17 08:27 97.0 113 22 132/58 95 03/25/17 00:00 98.7 100 16 132/63 93 03/24/17 19:50 98.0 84 20 132/63 95 1.00 03/24/17 18:18 96.4 108 22 125/69 97 1.00 I & O 03/25/17 07:00 Intake Total 761.5 ml Output Total 1760 ml Balance -998.5 ml Capillary Refill : General Appearance: No Apparent Distress Respiratory: No Accessory Muscle Use, No Respiratory Distress Cardiovascular: Normal Peripheral Pulses Gastrointestinal: non tender, soft Extremity: No Calf Tenderness Neurologic/Psychiatric: Alert, Oriented x3, No Motor/Sensory Deficits Results Lab Laboratory Tests 03/24/17 11:03: Glucometer 144H 03/24/17 20:46: Glucometer 153H 03/25/17 05:13: Glucometer 175H Microbiology 03/16/17 Blood Culture - Final, Complete No growth 03/16/17 MRSA Screen - Final, Complete MRSA not isolated 03/17/17 Gram Stain - Final, Complete 03/17/17 Anaerobic Culture - Final, Complete No anaerobes isolated 03/17/17 Surgical Culture - Final, Complete Streptococcus Viridans Assessment/Plan Assessment/Plan Assess & Plan/Chief Complaint S/P lumbar fusion with post-op infection Pain control Morbid Obesity Plan: Continue current care Clinical Quality Measures DVT/VTE Risk/Contraindication: Risk Factor Score Per Nursin RFS Level Per Nursing on Admit: 4+=Very High Contraindications-Pharm: Other *list below* Other: needs surgery KAITLYNN LAFLEUR MD Mar 25, 2017 10:34 am
--- NOTE | 2017-03-25 11:13 | Physical Therapy Daily Note ---
PT Daily Note-Current Subjective Patient agrees to PT. Pain Numeric Pain Scale: 5-Moderate Pain Location: Lower Location Body Site: Back Pain Description: Pressure, Acute Mental Status Patient Orientation: Normal For Age Attachments: Posey Catheter, IV Transfers Functional [place] Measure 0=Not Assessed/NA 4=Minimal Assistance 1=Total Assistance 5=Supervision or Setup 2=Maximal Assistance 6=Modified [place] 3=Moderate Assistance 7=Complete IndependenceIRFPAI Quality Coding Scale 6 Independent with activity with or without an assistive device 5 Patient requires set up or clean up by helper. Patient completes activity by themselves 4 Supervision or touching assist (CGA). [place] provide cues , steadying assist 3 The helper provides less than half the effort to complete the activity 2 The helper provides more than half the effort to complete the activity 1 Dependent. The helper does all the effort to complete an activity 7 Patient refused to complete or attempt activity 9 The patient did not perform the activity before the current illness or injury 88 Not attempted due to Medical conditions or safety concerns Transfers (B, C, W/C) (FIM): 5 Scootin Rollin Supine to/from Sit: 5 Sit to/from Stand: 5 patient requires time to complete all functional tasks Gait Training Gait (FIM): 1 Distance (FIM): 1=up to 49 ft Distance: 5' Gait Level of Assist: 5 Gait Persons Needed: 1 Gait Assistive Device: FWW slow Assessment Patient's pain has decreased in her lower back, however, patient continues to require time to complete tasks. PT Refrigeration Repair Supervisor Goals Long-Term Goals PT Long-Term Goals Time Frame: Mar 25, 2017 Transfers (B,C,W/C) (FIM): 4 Gait (FIM): 1 Gait distance (FIM): 1=up to 49 ft Distance: 50' Gait Level of Assist: 5 Gait Assistive Device: FWW PT Plan Treatment/Plan Treatment Plan: Continue Plan of Care, Modify Plan, see comments (Frequency and goals to remain the safe. Duration is April 15, 2017) Treatment Plan: Bed Mobility, Education, Functional Activity [place], Functional Strength, Gait, Safety, Therapeutic Exercise, Transfers Treatment Duration: Mar 25, 2017 Visits Per Week: 6 Time/GCodes Time In: 1005 Time Out: 1030 Total Billed Treatment Time: 25 Total Billed Treatment 1 visit FA x 2 25 min MILAGROS BENEDICT PT Mar 25, 2017 11:13
--- NOTE | 2017-03-25 11:17 | Progress Note-Hospitalist ---
Progress Note HPI/CC on Admission CC: Drainage from lumbar spinal surgical site HPI: This is a 61 yoWF pt of Brad Andrade known to me from [facility] admission for lumbar spine surgery on 03/01/17. Pt has had a very slow recovery and began having redness and drainage. Pt was started on Keflex in [place] [facility] Tuesday and seen by Dr. Villalta in his office yesterday. She was a direct admit to [facility] [place]. PICC line was placed and pt was empirically started on Vanc and Cefepime. WBC 7.7, Hgb 7.0, ESR 140, iron 12. 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 Lungs sound perfect Labs were discussed with the pt and she was informed that she will continue having iron treatments Pt has been having bowel movements Pt was informed that she will continue to antibiotics Pt states that she has not been comfortable and this has inhibited her movement. Pt states that she has been sticking to the bed Pt states that she has been sleeping well Scribed by Marion Miguel under the direct supervision of Dr. Cody. Progress Notes/Assess & Plan Date Seen 03/25/17 Time Seen by Provider: 10:15 Admission Dx/Process Assessment: Lumbar spine surgical site drainage and inflammation empirically covering with IV antibiotics POD # 16 in need of I&D today Slow recovery and overall chronic debilitation Obstructive sleep apnea noncompliant with the Pap Hiatal hernia GERD History of peptic ulcers Osteoarthritis next number diabetes mellitus Chronic heart murmur Iron deficiency anemia COPD Diagonsis/Assessment & Plan Chart Review: No fever Vitals stable Repeat I&D showed pus formation in deep tissue Patient Interview: Pt was sitting up upon interview Physical exam stable Possible In-pt rehab was discussed with pt and she would like to try it if possible Pt acknowledges Dr. Villalta's fluid removal has benefitted pt greatly Scribed by Marion Miguel under the direct supervision of Dr. Cody. AFVSS, Pleasant, improved overall Tachycardic 92 regular no change to 3/6 murmur, CTAB no rales noted No edema Assessment: Lumbar spine surgical site drainage with Strep and Staph on IV antibiotics POD # 24 s/p I&D POD # 8 now with wound vac placement D # 4 but s/p I&D yesterday and drained pus collection POD # 1 Slow recovery and overall chronic debilitation but much improved working with PT today for the first time Obstructive sleep apnea noncompliant with CPAP Hiatal hernia GERD History of peptic ulcers Osteoarthritis Chronic heart murmur Iron deficiency anemia receiving iron infusions COPD Tachycardia likely due to deconditioning improved on BB DM improved when increased insulin yesterday Post op constipation resolved Lovenox for DVT Px Plan: Continue PT Continue antibiotics empiric coverage for 6 weeks total and follow up with final culture results from yesterday Check labs in am IV iron to complete PT/OT Maintain Lopressor PO - Metoprolol 25 BID Lovenox Bowel regimen to continue DC SSI and add Novolog 10 units before meals maintained Pain is much improved after I&D so overall doing much better SARAH CODY DO Mar 25, 2017 11:17
[2017-03-25] MEDS: diphenhydrAMINE 50 MG/ML INJ (BENADRYL) IVP PRN (11:22)
[2017-03-25] MEDS ORDERED: TROUGH ORDER-PHARMACY XX NR (13:00)
[2017-03-25] MEDS ORDERED: ALTEPLASE 2 MG (CATHFLO) IV ONE (13:15)
[2017-03-25] MEDS ORDERED: WATER (STERILE) FOR INJECTION 20 ML ONE (13:42)
--- NOTE | 2017-03-25 14:19 | Anesthesia-General Post-Op ---
General Patient Condition Mental Status/LOC: Same as Preop Cardiovascular: Satisfactory Nausea/Vomiting: Absent Respiratory: Satisfactory Pain: Controlled Complications: Absent Post Op Complications Complications None Follow Up Care/Instructions Patient Instructions None needed. Anesthesia/Patient Condition Patient Condition Patient is doing better today, pain under better control, stable vital signs, no apparent adverse anesthesia problems. DAYNA JERONIMO DO Mar 25, 2017 14:19
--- NOTE | 2017-03-25 15:48 | Occ Therapy Progress Note ---
Therapy Progress Note Pt refused treatment due to increased pain. Pt stated that she had stood with physical therapy and took a couple of side steps and now she was to tired and hurting to do anything else. 1-Refusal 1100 SERJIO MCKEON Mar 25, 2017 15:48
[2017-03-25 16:00] VITALS: BP 143/65
[2017-03-25 21:15] VITALS: BP 153/70
[2017-03-25] MEDS: FERROUS SULF 325 MG (IRON) TAB PO SCH (22:15)
[2017-03-25] MEDS: inSUlin DETERMIR 1 UNIT/0.01 ML (LEVEMIR) CHARGE PER UNIT SQ SCH (22:21)
[2017-03-25 23:50] VITALS: BP 154/70
[2017-03-26] MEDS: HYDROcodone/APAP 7.5 MG/325 MG (LORTAB, LORCET PLUS) TABLET PO SCH ×5 (00:40→23:20)
[2017-03-26] MEDS: HYDROmorphone (DILAUDID) 2 MG/ML VIAL IVP PRN ×5 (02:52→23:20)
[2017-03-26] MEDS: diphenhydrAMINE 50 MG/ML INJ (BENADRYL) IVP PRN (05:37)
[2017-03-26] MEDS: inSUlin ASPART (NovoLOG) 1 UNIT/0.01 ML (CHARGE PER UNIT) SC SCH ×3 (06:24→17:01)
[2017-03-26 06:55] LABS: ANION GAP 10 MMOL/L (5-14); BLOOD UREA NITROGEN 14 MG/DL (7-18); BUN/CREATININE RATIO 18; CALCIUM 9.4 MG/DL (8.5-10.1); CARBON DIOXIDE 26 MMOL/L (21-32); CHLORIDE 103 MMOL/L (98-107); CREATININE SERUM 0.79 MG/DL (0.60-1.30); GFR ESTIMATED > 60; GLUCOSE 204 MG/DL (70-105); POTASSIUM 4.2 MMOL/L (3.6-5.0); SODIUM 139 MMOL/L (135-145)
[2017-03-26] MEDS: VANCOMYCIN 1250 MG/NS 250 ML IVPB IV SCH ×2 (08:20)
[2017-03-26] MEDS: BACLOFEN 10 MG (LIORESAL) TAB PO SCH ×3 (08:21→21:19)
[2017-03-26] MEDS: meTOprolol TARTRATE 25 MG (LOPRESSOR) TABLET PO SCH ×2 (08:21→21:20)
[2017-03-26] MEDS: SENNA W/DOCUSATE (SENOKOT S) TABLET PO SCH ×2 (08:22→21:20)
[2017-03-26] MEDS: LACTULOSE SYRUP 10GM/15ML (ENULOSE) 30ML UDC PO SCH ×3 (08:22→21:19)
[2017-03-26] MEDS: POLYETHYLENE GLYCOL 17 GM (MIRALAX) PACK PO SCH ×3 (08:22→21:26)
[2017-03-26 08:30] VITALS: BP 133/66
--- NOTE | 2017-03-26 10:34 | Progress Note (SOAP) ---
Subjective Date Seen by Provider: Mar 26, 2017 Time Seen by Provider: 10:10 Subjective/Events-last exam Patient laying in bed, has set up 1 x but has not been OOB, is laying on right side. c/o pain and states she can't get up due to pain Review of Systems General: No Chills, No Night Sweats Gastrointestinal: No: Nausea, Vomiting Musculoskeletal: back pain Neurological: No: Weakness Objective Exam Vital Signs Date Time Temp Pulse Resp B/P (MAP) Pulse Ox O2 Delivery O2 Flow Rate FiO2 03/26/17 08:30 98.2 102 26 133/66 92 Room Air 03/25/17 23:50 98.2 102 16 154/70 96 High Flow N/C 3.00 03/25/17 21:15 96.7 108 20 153/70 94 High Flow N/C 3.00 03/25/17 21:00 Room Air 03/25/17 16:00 98.6 108 20 143/65 97 High Flow N/C 3.00 I & O 03/26/17 07:00 Intake Total 1390 ml Output Total 900 ml Balance 490 ml Capillary Refill : General Appearance: No Apparent Distress Neck: Normal Inspection Respiratory: No Accessory Muscle Use, No Respiratory Distress Extremity: Normal Inspection Neurologic/Psychiatric: Alert, Oriented x3, No Motor/Sensory Deficits Skin: Normal Color, Warm/Dry Other comments wound vacc in place to lumbar wound Results Lab Laboratory Tests 03/25/17 10:34: Glucometer 120H 03/25/17 13:10: Vancomycin Level Trough 24.3H 03/25/17 16:39: Glucometer 230H 03/25/17 21:06: Glucometer 112H 03/26/17 05:13: Glucometer 191H 03/26/17 06:00: Sodium Level 139, Potassium Level 4.2, Chloride Level 103, Carbon Dioxide Level 26, Anion Gap 10, Blood Urea Nitrogen 14, Creatinine 0.79, Estimat Glomerular Filtration Rate > 60, BUN/Creatinine Ratio 18, Glucose Level 204H, Calcium Level 9.4, Vancomycin Level Trough 12.4 Microbiology 03/16/17 Blood Culture - Final, Complete No growth 03/16/17 MRSA Screen - Final, Complete MRSA not isolated 03/24/17 Gram Stain - Final, Resulted 03/24/17 Anaerobic Culture, Resulted Pending 03/24/17 Surgical Culture - Preliminary, Resulted No growth Assessment/Plan Assessment/Plan Assess & Plan/Chief Complaint Assessment: lumbar wound infection s/p ID lumbar wound morbid obesity Plan: continue current treatment and wound care discussed risk of being non ambulatory with patient plan will be to get patient placed in facility for wound care and rehab possibly tuesday Clinical Quality Measures DVT/VTE Risk/Contraindication: Risk Factor Score Per Nursin RFS Level Per Nursing on Admit: 4+=Very High Contraindications-Pharm: Other *list below* Other: needs surgery CHRIS BAIRES Mar 26, 2017 10:33
[2017-03-26] MEDS: ENOXAPARIN 40 MG/0.4 ML (LOVENOX) SYR SC SCH (11:36)
--- NOTE | 2017-03-26 12:01 | Progress Note-Hospitalist ---
Subjective HPI/CC On Admission Date Seen by Provider: Mar 26, 2017 Time Seen by Provider: 09:55 CC: Drainage from lumbar spinal surgical site HPI: This is a 61 yoWF pt of Brad Andrade known to me from [facility] admission for lumbar spine surgery on 03/01/17. Pt has had a very slow recovery and began having redness and drainage. Pt was started on Keflex in [place] ER Tuesday and seen by Dr. Villalta in his office yesterday. She was a direct admit to [facility]. PICC line was placed and pt was empirically started on Vanc and Cefepime. WBC 7.7, Hgb 7.0, ESR 140, iron 12. 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 Lungs sound perfect Labs were discussed with the pt and she was informed that she will continue having iron treatments Pt has been having bowel movements Pt was informed that she will continue to antibiotics Pt states that she has not been comfortable and this has inhibited her movement. Pt states that she has been sticking to the bed Pt states that she has been sleeping well Scribed by Marion Miguel under the direct supervision of Dr. Acosta. Subjective/Events-last exam patient reports she's feeling significantly better today with diminished back pain ever since surgery for wound debridement of previous laminectomy site likely infected. Cultures from the 8th are negative thus far. Objective Exam Vital Signs Vital Sign - Last 12Hours 03/20/17 03/24/17 03/25/17 00:00 18:18 16:00 Temp 97.8 Pulse 109 Resp 18 B/P (MAP) 143/71 Pulse Ox 93 O2 Delivery High Flow N/C O2 Flow Rate 1.00 Capillary Refill : Less Than 3 Seconds General Appearance: No Apparent Distress, Obese Respiratory: Chest Non Tender, Lungs Clear, Normal Breath Sounds, No Accessory Muscle Use, No Respiratory Distress Cardiovascular: Regular Rate, Rhythm, No Edema, No Gallop, No JVD, No Murmur, Normal Peripheral Pulses Gastrointestinal: Normal Bowel Sounds, No Organomegaly, No Pulsatile Mass, Non Tender, Soft Back: Other (O evidence for erythema or induration around surgical wound or wound VAC which are draining serosanguineous fluid only.) Results/Procedures Lab Laboratory Tests 03/26/17 06:00 Assessment/Plan Assessment and Plan Assess & Plan/Chief Complaint 1. Presumed wound infection from previous laminectomy site. As sedimentation rate was significantly elevated with no other causes a deeper structure infection is likely. Patient is responding to vancomycin with a previous culture growing viridans strep. Repeat cultures from the eighth are negative thus far. We'll continue vancomycin and monitor with you. FELIPA RODRIGUEZ MD Mar 26, 2017 12:01
--- NOTE | 2017-03-26 12:40 | Physical Therapy Daily Note ---
PT Daily Note-Current Subjective Lumbar pain and (B) hip pain with all movement. Pain Numeric Pain Scale: 8 Location: Lower Location Body Site: Back Pain Description: Pressure, Stabbing Mental Status Patient Orientation: Person, Place, Time, Situation Transfers Functional [place] Measure 0=Not Assessed/NA 4=Minimal Assistance 1=Total Assistance 5=Supervision or Setup 2=Maximal Assistance 6=Modified [place] 3=Moderate Assistance 7=Complete IndependenceIRFPAI Quality Coding Scale 6 Independent with activity with or without an assistive device 5 Patient requires set up or clean up by helper. Patient completes activity by themselves 4 Supervision or touching assist (CGA). [place] provide cues , steadying assist 3 The helper provides less than half the effort to complete the activity 2 The helper provides more than half the effort to complete the activity 1 Dependent. The helper does all the effort to complete an activity 7 Patient refused to complete or attempt activity 9 The patient did not perform the activity before the current illness or injury 88 Not attempted due to Medical conditions or safety concerns Transfers (B, C, W/C) (FIM): 2 Supine to/from Sit: 2 Exercises Supine Ex: LE Protocol Supine Reps: 15 Pt needed at least 50% assist for supine exercises due to lumbar and hip pain. Assessment Pt initially refused treatment, but nursing had requested that she participate. She reported pain throughout all activity. She was able to sit edge of bed for 2 minutes unassisted. PT Snf Goals Snf Goals PT Technical Services Rep Goals Time Frame: Mar 25, 2017 Transfers (B,C,W/C) (FIM): 4 Gait (FIM): 1 Gait distance (FIM): 1=up to 49 ft Distance: 50' Gait Level of Assist: 5 Gait Assistive Device: FWW PT Plan Treatment/Plan Treatment Plan: Continue Plan of Care Treatment Plan: Bed Mobility, Education, Functional Activity [place], Functional Strength, Gait, Safety, Therapeutic Exercise, Transfers Treatment Duration: Mar 25, 2017 Visits Per Week: 6 Time/GCodes Time In: 0840 Time Out: 0910 Total Billed Treatment Time: 30 Total Billed Treatment 1, ex 15', fa 15' ANIBAL LOMELI PT Mar 26, 2017 12:40
[2017-03-26 16:48] VITALS: BP 139/62
[2017-03-26] MEDS: hydrOXYzine (VISTARIL) 25 MG CAP PO PRN ×2 (17:42→23:37)
[2017-03-26] MEDS: ALPRAZolam 0.25 MG (XANAX) TAB PO PRN (19:36)
[2017-03-26] MEDS: FERROUS SULF 325 MG (IRON) TAB PO SCH (21:19)
[2017-03-26] MEDS: inSUlin DETERMIR 1 UNIT/0.01 ML (LEVEMIR) CHARGE PER UNIT SQ SCH (21:24)
[2017-03-26 23:52] VITALS: BP 147/74
[2017-03-27] MEDS: ALPRAZolam 0.25 MG (XANAX) TAB PO PRN ×2 (02:53→20:49)
[2017-03-27] MEDS: HYDROmorphone (DILAUDID) 2 MG/ML VIAL IVP PRN ×4 (02:53→20:49)
[2017-03-27] MEDS: HYDROcodone/APAP 7.5 MG/325 MG (LORTAB, LORCET PLUS) TABLET PO SCH ×3 (06:50→17:58)
[2017-03-27] MEDS: inSUlin ASPART (NovoLOG) 1 UNIT/0.01 ML (CHARGE PER UNIT) SC SCH ×2 (06:50→11:00)
[2017-03-27] MEDS: POLYETHYLENE GLYCOL 17 GM (MIRALAX) PACK PO SCH ×2 (07:52→20:50)
[2017-03-27] MEDS: LACTULOSE SYRUP 10GM/15ML (ENULOSE) 30ML UDC PO SCH ×3 (07:52→20:50)
[2017-03-27 08:00] VITALS: BP 138/78
[2017-03-27] MEDS: meTOprolol TARTRATE 25 MG (LOPRESSOR) TABLET PO SCH ×2 (09:39→20:50)
[2017-03-27] MEDS: BACLOFEN 10 MG (LIORESAL) TAB PO SCH ×3 (09:39→20:50)
[2017-03-27] MEDS: hydrOXYzine (VISTARIL) 25 MG CAP PO PRN (09:39)
[2017-03-27] MEDS: SENNA W/DOCUSATE (SENOKOT S) TABLET PO SCH ×2 (09:39→20:49)
[2017-03-27] MEDS: VANCOMYCIN 1250 MG/NS 250 ML IVPB IV SCH ×2 (09:39)
--- NOTE | 2017-03-27 10:21 | Progress Note-Hospitalist ---
Subjective HPI/CC On Admission Date Seen by Provider: Mar 27, 2017 Time Seen by Provider: 09:25 CC: Drainage from lumbar spinal surgical site HPI: This is a 61 yoWF pt of Brad Andrade known to me from [facility] admission for lumbar spine surgery on 03/01/17. Pt has had a very slow recovery and began having redness and drainage. Pt was started on Keflex in [place] ER Tuesday and seen by Dr. Villalta in his office yesterday. She was a direct admit to [facility]. PICC line was placed and pt was empirically started on Vanc and Cefepime. WBC 7.7, Hgb 7.0, ESR 140, iron 12. 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 Lungs sound perfect Labs were discussed with the pt and she was informed that she will continue having iron treatments Pt has been having bowel movements Pt was informed that she will continue to antibiotics Pt states that she has not been comfortable and this has inhibited her movement. Pt states that she has been sticking to the bed Pt states that she has been sleeping well Scribed by Marion Miguel under the direct supervision of Dr. Acosta. Subjective/Events-last exam patient appears comfortable flat on her back. She moves side to side does not appear to be in pain. She refuses to go to bed however secondary to left lower extremity radicular pain exacerbated by sitting up. This is not a new complaint. She reports pain most the time is under reasonable control supine on her current pain medication. She denies numbness. She reports generalized fatigue without focal weakness. Objective Exam Vital Signs Vital Sign - Last 12Hours 03/21/17 03/24/17 03/25/17 00:09 18:18 16:00 Temp 99.1 Pulse 110 Resp 18 B/P (MAP) 156/78 Pulse Ox 95 O2 Delivery High Flow N/C O2 Flow Rate 1.00 Capillary Refill : Less Than 3 Seconds General Appearance: No Apparent Distress, WD/WN, Obese Respiratory: Chest Non Tender, Lungs Clear, Normal Breath Sounds, No Accessory Muscle Use, No Respiratory Distress Cardiovascular: Regular Rate, Rhythm, No Edema, No Gallop, No JVD, Other (1 to 2/6 systolic ejection murmur heard throughout unchanged from yesterday. No diastolic murmurs are noted.) Back: Other (wound VAC on lumbar drain draining serosanguineous nonpurulent- appearing fluid. No erythema or induration is noted on the back.) Assessment/Plan Assessment and Plan Assess & Plan/Chief Complaint 1. Presumed wound infection from previous laminectomy site. As sedimentation rate was significantly elevated with no other causes a deeper structure infection is likely. Patient is responding to vancomycin with a previous culture growing viridans strep. Repeat cultures from the eighth are negative thus far. We'll continue vancomycin and monitor with you. patient encouraged to set up despite discomfort. FELIPA RODRIGUEZ MD Mar 27, 2017 10:21
--- NOTE | 2017-03-27 11:40 | Progress Note (SOAP) ---
Subjective Time Seen by Provider: 11:20 Subjective/Events-last exam laying in bed supine, eating due to hypoglycemic episode, celis x 4 currently. c/ o right hip pain. nurse reports drain output increased yesterday Review of Systems General: No Chills, No Night Sweats Pulmonary: No Cough Cardiovascular: No: Chest Pain Gastrointestinal: No: Vomiting Musculoskeletal: back pain Neurological: No: Numbness, Weakness Objective Exam Vital Signs Date Time Temp Pulse Resp B/P (MAP) Pulse Ox O2 Delivery O2 Flow Rate FiO2 03/27/17 09:00 Room Air 03/27/17 08:00 97.5 100 20 138/78 99 Room Air 03/27/17 08:00 97.5 100 20 138/78 Room Air 03/26/17 23:52 97.8 95 22 147/74 93 Room Air 03/26/17 16:48 98.4 99 22 139/62 98 Room Air I & O 03/27/17 07:00 Intake Total 1362.5 ml Output Total 1690 ml Balance -327.5 ml Capillary Refill : Less Than 3 Seconds General Appearance: No Apparent Distress Neck: Normal Inspection Extremity: Normal Capillary Refill, Normal Inspection, Non Tender Neurologic/Psychiatric: Alert, Oriented x3, No Motor/Sensory Deficits Results Lab Laboratory Tests 03/26/17 16:30: Glucometer 239H 03/26/17 21:15: Glucometer 90 03/27/17 05:42: Glucometer 131H 03/27/17 11:03: Glucometer 56*L Microbiology 03/16/17 Blood Culture - Final, Complete No growth 03/16/17 MRSA Screen - Final, Complete MRSA not isolated 03/24/17 Gram Stain - Final, Resulted 03/24/17 Anaerobic Culture - Preliminary, Resulted No growth 03/24/17 Surgical Culture - Preliminary, Resulted No growth Assessment/Plan Assessment/Plan Assess & Plan/Chief Complaint Assessment: lumbar wound infection s/p ID lumbar wound morbid obesity Plan: continue current treatment and wound care discussed risk of being non ambulatory with patient plan for placment in [facility] [place] [facility] or snf facilitiy tomorrow Clinical Quality Measures DVT/VTE Risk/Contraindication: Risk Factor Score Per Nursin RFS Level Per Nursing on Admit: 4+=Very High Contraindications-Pharm: Other *list below* Other: needs surgery CHRIS BAIRES Mar 27, 2017 11:40
[2017-03-27] MEDS: ENOXAPARIN 40 MG/0.4 ML (LOVENOX) SYR SC SCH (11:53)
[2017-03-27 15:38] VITALS: BP 121/75
[2017-03-27] MEDS ORDERED: inSUlin ASPART (NovoLOG) 1 UNIT/0.01 ML (CHARGE PER UNIT) SC SCH (16:00)
[2017-03-27 19:42] VITALS: BP 177/86
[2017-03-27] MEDS: inSUlin DETERMIR 1 UNIT/0.01 ML (LEVEMIR) CHARGE PER UNIT SQ SCH (20:49)
[2017-03-27] MEDS: diphenhydrAMINE 50 MG/ML INJ (BENADRYL) IVP PRN (20:49)
[2017-03-27] MEDS: FERROUS SULF 325 MG (IRON) TAB PO SCH (20:49)
[2017-03-28 00:02] VITALS: BP 141/70
[2017-03-28] MEDS: HYDROmorphone (DILAUDID) 2 MG/ML VIAL IVP PRN ×2 (00:49→04:27)
[2017-03-28] MEDS: HYDROcodone/APAP 7.5 MG/325 MG (LORTAB, LORCET PLUS) TABLET PO SCH ×2 (00:49→06:54)
[2017-03-28 05:21] VITALS: BP 142/76
[2017-03-28] MEDS ORDERED: inSUlin ASPART (NovoLOG) 1 UNIT/0.01 ML (CHARGE PER UNIT) SC SCH (06:00)
--- NOTE | 2017-03-28 06:40 | Progress Note (SOAP) ---
Subjective Time Seen by Provider: 06:35 Subjective/Events-last exam POD #4, s/p repeat I&D with deep drain placement Repeat cultures pending Complains of low back and left lower extremity pain Review of Systems General: No Chills, No Night Sweats, Fatigue Gastrointestinal: No: Nausea, Vomiting Musculoskeletal: back pain, leg pain Neurological: No: Numbness Objective Exam Vital Signs Date Time Temp Pulse Resp B/P (MAP) Pulse Ox O2 Delivery O2 Flow Rate FiO2 03/28/17 05:21 98.0 80 20 142/76 95 Room Air 03/28/17 00:02 97.7 106 16 141/70 95 Room Air 03/27/17 21:00 Room Air 03/27/17 19:42 99.1 73 24 177/86 98 Room Air 03/27/17 15:38 98.9 101 20 121/75 94 Room Air 03/27/17 09:00 Room Air 03/27/17 08:00 97.5 100 20 138/78 99 Room Air 03/27/17 08:00 97.5 100 20 138/78 Room Air I & O 03/28/17 07:00 Intake Total 972 ml Output Total 1170 ml Balance -198 ml Capillary Refill : Less Than 3 Seconds General Appearance: No Apparent Distress, WD/WN Respiratory: No Accessory Muscle Use, No Respiratory Distress Cardiovascular: Normal Peripheral Pulses Gastrointestinal: non tender, soft Extremity: Normal Capillary Refill, Non Tender, No Calf Tenderness Neurologic/Psychiatric: Alert, Oriented x3, No Motor/Sensory Deficits, Normal 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/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, 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 Norm as Tested Skin: Other (Wound vac in place, no curtis wound erythema or induration) Results Lab Laboratory Tests 03/27/17 11:03: Glucometer 56*L 03/27/17 11:45: Glucometer 87 03/27/17 15:42: Glucometer 186H 03/27/17 20:22: Glucometer 140H 03/28/17 04:54: Glucometer 168H Microbiology 03/16/17 Blood Culture - Final, Complete No growth 03/16/17 MRSA Screen - Final, Complete MRSA not isolated 03/24/17 Gram Stain - Final, Resulted 03/24/17 Anaerobic Culture - Preliminary, Resulted No growth 03/24/17 Surgical Culture - Preliminary, Resulted No growth Assessment/Plan Assessment/Plan Assess & Plan/Chief Complaint Lumbar surgical site infection Debilitation I had a long discussion with the patient concerning her lack of effort with PT. Patient was very defensive and stated that she attempts to perform exercises in the bed, when no one is present. I reiterated that her activity level is not sufficient and that she must participate with PT. She states that the pain medication only makes her "loopy". I informed her that I was discontinuing her IV Dilaudid at this time. Await final culture results. Discharge planning. Clinical Quality Measures DVT/VTE Risk/Contraindication: Risk Factor Score Per Nursin RFS Level Per Nursing on Admit: 4+=Very High Contraindications-Pharm: Other *list below* Other: needs surgery ETHAN LAM Mar 28, 2017 06:40
[2017-03-28 07:37] LABS: BASOPHILS % (AUTO) 1 % (0-10); EOSINOPHILS # (AUTO) 1.3 10^3/uL (0.0-0.3); EOSINOPHILS % (AUTO) 20 % (0-10); LYMPHOCYTES # (AUTO) 1.1 X 10^3 (1.0-4.0); LYMPHOCYTES % (AUTO) 17 % (12-44); MEAN CORPUSCULAR HEMOGLOBIN 27 PG (25-34); MEAN CORPUSCULAR HGB CONC 30 G/DL (32-36); MEAN CORPUSCULAR VOLUME 91 FL (80-99); MONOCYTES # (AUTO) 0.8 X 10^3 (0.0-1.0); MONOCYTES % (AUTO) 12 % (0-12); NEUTROPHILS # (AUTO) 3.3 X 10^3 (1.8-7.8); NEUTROPHILS % (AUTO) 51 % (42-75); PLATELET COUNT 333 10^3/uL (130-400); RED BLOOD COUNT 3.51 10^6/uL (4.35-5.85); RED CELL DISTRIBUTION WIDTH 14.5 % (10.0-14.5); WHITE BLOOD COUNT 6.5 10^3/uL (4.3-11.0)
[2017-03-28 07:54] LABS: ANION GAP 12 MMOL/L (5-14); BLOOD UREA NITROGEN 12 MG/DL (7-18); BUN/CREATININE RATIO 16; CALCIUM 9.4 MG/DL (8.5-10.1); CARBON DIOXIDE 27 MMOL/L (21-32); CHLORIDE 101 MMOL/L (98-107); CREATININE SERUM 0.77 MG/DL (0.60-1.30); GFR ESTIMATED > 60; GLUCOSE 177 MG/DL (70-105); SODIUM 140 MMOL/L (135-145)
[2017-03-28] MEDS ORDERED: TROUGH ORDER-PHARMACY XX NR (08:00)
[2017-03-28 08:02] LABS: BAND NEUTROPHILS 0 %; BASOPHILS % (MANUAL) 0 %; EOSINOPHILS % (MANUAL) 21 %; LYMPHOCYTES % (MANUAL) 23 %; NEUTROPHILS % (MANUAL) 50 %
[2017-03-28 08:04] LABS: ERYTHROCYTE SEDIMENTATION RATE > 140 MM/HR (0-30)
[2017-03-28 08:42] VITALS: BP 142/84
[2017-03-28] MEDS: BACLOFEN 10 MG (LIORESAL) TAB PO SCH ×3 (08:59→20:56)
[2017-03-28] MEDS: meTOprolol TARTRATE 25 MG (LOPRESSOR) TABLET PO SCH ×2 (08:59→20:57)
[2017-03-28] MEDS: SENNA W/DOCUSATE (SENOKOT S) TABLET PO SCH ×2 (09:00→20:56)
--- NOTE | 2017-03-28 09:11 | Progress Note-Hospitalist ---
Progress Note HPI/CC on Admission CC: Drainage from lumbar spinal surgical site HPI: This is a 61 yoWF pt of Brad Andrade known to me from [facility] admission for lumbar spine surgery on 03/01/17. Pt has had a very slow recovery and began having redness and drainage. Pt was started on Keflex in [place] ER Tuesday and seen by Dr. Villalta in his office yesterday. She was a direct admit to [facility]. PICC line was placed and pt was empirically started on Vanc and Cefepime. WBC 7.7, Hgb 7.0, ESR 140, iron 12. 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 Lungs sound perfect Labs were discussed with the pt and she was informed that she will continue having iron treatments Pt has been having bowel movements Pt was informed that she will continue to antibiotics Pt states that she has not been comfortable and this has inhibited her movement. Pt states that she has been sticking to the bed Pt states that she has been sleeping well Scribed by Marion Miguel under the direct supervision of Dr. Cody. Progress Notes/Assess & Plan Date Seen 03/28/17 Time Seen by Provider: 09:00 Admission Dx/Process Assessment: Lumbar spine surgical site drainage and inflammation empirically covering with IV antibiotics POD # 16 in need of I&D today Slow recovery and overall chronic debilitation Obstructive sleep apnea noncompliant with the Pap Hiatal hernia GERD History of peptic ulcers Osteoarthritis next number diabetes mellitus Chronic heart murmur Iron deficiency anemia COPD Diagonsis/Assessment & Plan Patient doing about the same since I last saw her on Tuesday Wiggling in bed that she considers a major feat and itself so very slow recovery Wound culture appears to be sterile Still on vancomycin Reviewed labs AFVSS, Pleasant, improved overall, talkative Tachycardic 92 regular no change to 3/6 murmur, CTAB no rales noted No edema Assessment: Lumbar spine surgical site drainage with Strep and Staph on IV antibiotics POD # 27 s/p I&D POD # 11 now with wound vac placement D # 7 but s/p I&D and drained pus collection POD # 4 Slow recovery and overall chronic debilitation but much improved working with PT today for the first time Obstructive sleep apnea noncompliant with CPAP Hiatal hernia GERD History of peptic ulcers Osteoarthritis Chronic heart murmur Iron deficiency anemia receiving iron infusions COPD Tachycardia likely due to deconditioning improved on BB DM improved when increased insulin yesterday Post op constipation resolved Lovenox for DVT Px Plan: Continue PT Continue antibiotics empiric coverage for 6 weeks total and follow up with final culture results but appear to be sterile Check labs in am IV iron to complete PT/OT Maintain Lopressor PO - Metoprolol 25 BID Lovenox to continue Bowel regimen to continue DC SSI and add Novolog 10 units before meals maintained Pain is much improved after I&D so overall doing much better SARAH CODY DO Mar 28, 2017 09:11
[2017-03-28] MEDS: VANCOMYCIN 1500 MG/NS 500 ML IVPB IV SCH ×2 (09:14)
[2017-03-28] MEDS: POLYETHYLENE GLYCOL 17 GM (MIRALAX) PACK PO SCH ×2 (09:15→21:23)
[2017-03-28] MEDS: LACTULOSE SYRUP 10GM/15ML (ENULOSE) 30ML UDC PO SCH ×3 (09:15→21:22)
[2017-03-28] MEDS: ALPRAZolam 0.25 MG (XANAX) TAB PO PRN ×2 (09:56→20:56)
--- NOTE | 2017-03-28 11:40 | Physical Therapy Daily Note ---
PT Daily Note-Current Subjective Patient is supine in bed and agrees to PT. Patient is more alert on this date. Agrees to PT. Pain Numeric Pain Scale: 8 Location: Lower Location Body Site: Back Pain Description: Pressure, Acute Mental Status Patient Orientation: Normal For Age Attachments: Drains, Posey Catheter, IV wound vac Transfers Functional [place] Measure 0=Not Assessed/NA 4=Minimal Assistance 1=Total Assistance 5=Supervision or Setup 2=Maximal Assistance 6=Modified [place] 3=Moderate Assistance 7=Complete IndependenceIRFPAI Quality Coding Scale 6 Independent with activity with or without an assistive device 5 Patient requires set up or clean up by helper. Patient completes activity by themselves 4 Supervision or touching assist (CGA). [employer] provide cues , steadying assist 3 The helper provides less than half the effort to complete the activity 2 The helper provides more than half the effort to complete the activity 1 Dependent. The helper does all the effort to complete an activity 7 Patient refused to complete or attempt activity 9 The patient did not perform the activity before the current illness or injury 88 Not attempted due to Medical conditions or safety concerns Transfers (B, C, W/C) (FIM): 4 Scootin Rollin Supine to/from Sit: 4 Sit to/from Stand: 5 assist to elevate heels upon returning to bed Gait Training Gait (FIM): 1 Distance (FIM): 1=up to 49 ft Distance: 10' Gait Level of Assist: 5 Gait Assistive Device: FWW side stepping toward HOB. Patient self limits activity Exercises Supine Ex: Ankle pumps Seated Therapy Exercises: Ankle pumps Assessment Patient continues to slow improve, however, continues to self limit activity. Patient is very defensive with request to ambulate or sit up in recliner to prevent possible negative effects. PT to continue to increase activity as tolerated by patient. PT Cleaning Supervisor Goals Long-Term Goals PT Cleaning Supervisor Goals Time Frame: Mar 25, 2017 Transfers (B,C,W/C) (FIM): 4 Gait (FIM): 1 Gait distance (FIM): 1=up to 49 ft Distance: 50' Gait Level of Assist: 5 Gait Assistive Device: FWW PT Plan Treatment/Plan Treatment Plan: Continue Plan of Care Treatment Plan: Bed Mobility, Education, Functional Activity [place], Functional Strength, Gait, Safety, Therapeutic Exercise, Transfers Treatment Duration: Apr 08, 2017 Visits Per Week: 6 Time/GCodes Time In: 1005 Time Out: 1030 Total Billed Treatment Time: 25 Total Billed Treatment 1 visit FA x 2 25 min MILAGROS BENEDICT PT Mar 28, 2017 11:40
[2017-03-28] MEDS: hydrOXYzine (VISTARIL) 25 MG CAP PO PRN ×2 (11:55→18:12)
[2017-03-28] MEDS: HYDROcodone/APAP 7.5 MG/325 MG (LORTAB, LORCET PLUS) TABLET PO PRN ×2 (11:56→18:12)
[2017-03-28] MEDS: ENOXAPARIN 40 MG/0.4 ML (LOVENOX) SYR SC SCH (11:56)
[2017-03-28] MEDS: inSUlin ASPART (NovoLOG) 1 UNIT/0.01 ML (CHARGE PER UNIT) SC SCH ×2 (13:49→16:59)
--- NOTE | 2017-03-28 16:24 | Occupational Ther Daily Note ---
OT Current Status-Daily Note Subjective Pt. crying throughout OT visit. Reports 10/10 pain in left LE. Nursing is notified. It is not time for pt. to have pain meds. Appearance Pt. in bed. Explains that she is having severe pain, and that her left leg is very sensitive. Mental Status/Objective Patient Orientation: Person Functional [place] Measure 0=Not Assessed/NA 4=Minimal Assistance 1=Total Assistance 5=Supervision or Setup 2=Maximal Assistance 6=Modified [place] 3=Moderate Assistance 7=Complete [place] Other Treatment Pt. agrees to let OT apply pressure to left LE, to desensitize LE for further treatment, such as massage, mobility, and ADLs. OT applies gentle pressure throughout, and pt. begins to cry. Pt. attempts to get comfortable, but when she rolls to one side or another, becomes very upset and is unable to recover from pain. OT checked bilateral heals. No redness or breakdown. OT also attempted to talk pt. through the pain, engaging her in deep breathing. Pt. allowed OT to bend left leg at knee to flex hip, but pt. began to cry loudly. Pt. is encouraged that what will help her in the long run is to move, and to stand. Pt. states, "I know, I just can't." All needs are met in room, and nursing is made aware of situation. Education OT Patient Education: Correct positioning, Exercise program, Purpose of tx/ functional activities, Rehab process Teaching Recipient: Patient Teaching Methods: Demonstration, Discussion Response to Teaching: Verbalize Understanding OT Short Term Goals Short Term Goals 1=Demonstrate adherence to instructed precautions during ADL tasks. 2=Patient will verbalize/demonstrate understanding of assistive devices/ modifications for ADL. 3=Patient will improve strength/tolerance for activity to enable patient to perform ADL's. OT Nursing Home Goals Fingernail Technician Goals Time Frame: Apr 08, 2017 Eating (FIM): 6 Grooming(FIM): 6 Bathing(FIM): 6 Upper Body Dressing(FIM): 6 Lower Body Dressing(FIM): 6 Toileting(FIM): 6 Toilet/Commode Transfer(FIM): 6 Shower Transfer(FIM): 6 Additional Goals: 1-Demonstrate ADL Tasks, 2-Verbalize Understanding, 3- ImproveStrength/[place] 1=Demonstrate adherence to instructed precautions during ADL tasks. 2=Patient will verbalize/demonstrate understanding of assistive devices/ modifications for ADL. 3=Patient will improve strength/tolerance for activity to enable patient to perform ADL's. OT Education/Plan Problem List/Assessment Assessment: Decreased Activ Tolerance, Dependent Transfers, Impaired Bed Mobility, Impaired I ADL's, Impaired Self-Care Skills Pt would benefit from skilled OT to increase her independence in basic self care to allow her to safely return home to live with her and to decrease caregiver burden. Discharge Recommendations Plan/Recommendations: Continue POC Therapy D/C Recommendations: 24 hr Supervision Target Placement While pt. is reporting this pain, and is unable to move, it is unknown what her target placement will be. Treatment Plan/Plan of Care Treatment,Training & Education: Yes Patient would benefit from OT for education, treatment and training to promote independence in ADL's, mobility, safety and/or upper extremity function for ADL' s. Plan of Care: ADL Retraining, Functional Mobility, UE Funct Exercise/Act, UE Neuromus Re-Ed/Coord Treatment Duration: Apr 08, 2017 Visits Per Week: 5-6 Agreement: Yes Rehab Potential: Fair Time/GCodes Start Time: 15:05 Stop Time: 15:35 Total Time Billed (hr/min): 30 Billed Treatment Time 1, FA x 2 CHINEDU LUNDY OT Mar 28, 2017 16:24
[2017-03-28 16:43] VITALS: BP 138/66
[2017-03-28 19:00] VITALS: BP 151/70
[2017-03-28] MEDS: FERROUS SULF 325 MG (IRON) TAB PO SCH (20:56)
[2017-03-28] MEDS: inSUlin DETERMIR 1 UNIT/0.01 ML (LEVEMIR) CHARGE PER UNIT SQ SCH (21:27)
[2017-03-28] MEDS: oxyCODONE/APAP 10/325MG (PERCOCET 10) TABLET PO PRN (22:59)
[2017-03-28 23:40] VITALS: BP 166/71
[2017-03-29] MEDS: ONDANSETRON 4 MG/2 ML (SDV) Z0FRAN IVP PRN ×2 (03:12→08:58)
[2017-03-29] MEDS: HYDROcodone/APAP 7.5 MG/325 MG (LORTAB, LORCET PLUS) TABLET PO PRN ×3 (03:31→18:22)
[2017-03-29 03:45] VITALS: BP 149/83
[2017-03-29] MEDS: diphenhydrAMINE 50 MG/ML INJ (BENADRYL) IVP PRN (04:12)
[2017-03-29] MEDS: ALPRAZolam 0.25 MG (XANAX) TAB PO PRN (04:18)
[2017-03-29] MEDS: oxyCODONE/APAP 10/325MG (PERCOCET 10) TABLET PO PRN (05:42)
[2017-03-29] MEDS: inSUlin ASPART (NovoLOG) 1 UNIT/0.01 ML (CHARGE PER UNIT) SC SCH ×3 (05:57→15:42)
--- NOTE | 2017-03-29 06:40 | Progress Note (SOAP) ---
Subjective Time Seen by Provider: 06:37 Subjective/Events-last exam s/p lumbar surgical site I&D No complaints of pain at this time Review of Systems Pulmonary: No Cough Gastrointestinal: No: Nausea, Vomiting Objective Exam Vital Signs Date Time Temp Pulse Resp B/P (MAP) Pulse Ox O2 Delivery O2 Flow Rate FiO2 03/29/17 05:43 97.3 03/29/17 04:35 96.4 03/29/17 03:47 105 91 95.00 03/29/17 03:45 149/83 03/28/17 23:40 98.0 100 20 166/71 99 Room Air 03/28/17 21:00 Room Air 03/28/17 19:00 99.3 104 18 151/70 98 Room Air 03/28/17 18:43 97.5 03/28/17 18:12 97.5 03/28/17 16:43 97.5 103 18 138/66 99 Room Air 03/28/17 11:56 96.1 03/28/17 11:56 96.1 03/28/17 09:45 96.1 03/28/17 08:42 96.1 106 18 142/84 98 Room Air 03/28/17 08:00 Room Air 03/28/17 07:30 98.0 I & O 03/29/17 07:00 Intake Total 1435 ml Output Total 1425 ml Balance 10 ml Capillary Refill : Less Than 3 Seconds General Appearance: No Apparent Distress, WD/WN Respiratory: No Accessory Muscle Use, No Respiratory Distress Extremity: Normal Capillary Refill, Normal Inspection, Normal Range of Motion, Non Tender, No Calf Tenderness Neurologic/Psychiatric: Alert, Oriented x3, No Motor/Sensory Deficits, Normal Mood/Affect, crtts II-XII Norm as Tested Skin: Other (wound vac in place. No periwound erythema or induration) Results Lab Laboratory Tests 03/28/17 07:30: White Blood Count 6.5, Red Blood Count 3.51L, Hemoglobin 9.5L, Hematocrit 32L, Mean Corpuscular Volume 91, Mean Corpuscular Hemoglobin 27, Mean Corpuscular Hemoglobin Concent 30L, Red Cell Distribution Width 14.5, Platelet Count 333, Mean Platelet Volume 9.0, Neutrophils (%) (Auto) 51, Lymphocytes (%) (Auto) 17, Monocytes (%) (Auto) 12, Eosinophils (%) (Auto) 20H, Basophils (%) (Auto) 1, Neutrophils # (Auto) 3.3, Lymphocytes # (Auto) 1.1, Monocytes # (Auto) 0.8, Eosinophils # (Auto) 1.3H, Basophils # (Auto) 0.0, Neutrophils % (Manual) 50, Lymphocytes % (Manual) 23, Monocytes % (Manual) 6, Eosinophils % (Manual) 21, Basophils % (Manual) 0, Band Neutrophils 0, Blood Morphology Comment NORMAL, Erythrocyte Sedimentation Rate > 140H, Sodium Level 140, Potassium Level 4.0, Chloride Level 101, Carbon Dioxide Level 27, Anion Gap 12, Blood Urea Nitrogen 12, Creatinine 0.77, Estimat Glomerular Filtration Rate > 60, BUN/Creatinine Ratio 16, Glucose Level 177H, Calcium Level 9.4, Vancomycin Level Trough 10.8 03/28/17 11:38: Glucometer 139H 03/28/17 16:16: Glucometer 226H 03/28/17 21:07: Glucometer 209H 03/29/17 05:11: Glucometer 139H Microbiology 03/16/17 Blood Culture - Final, Complete No growth 03/16/17 MRSA Screen - Final, Complete MRSA not isolated 03/24/17 Gram Stain - Final, Complete 03/24/17 Anaerobic Culture - Final, Complete No growth 03/24/17 Surgical Culture - Final, Complete No growth Assessment/Plan Assessment/Plan Assess & Plan/Chief Complaint Lumbar surgical site infection Debilitation Patient is ready for discharge at this time Discharge arrangements pending Patient will require an additional 4 weeks of IV Vancomycin and wound vac changes Clinical Quality Measures DVT/VTE Risk/Contraindication: Risk Factor Score Per Nursin RFS Level Per Nursing on Admit: 4+=Very High Contraindications-Pharm: Other *list below* Other: needs surgery ETHAN LAM Mar 29, 2017 06:40
[2017-03-29 07:49] VITALS: BP 161/84
[2017-03-29] MEDS: SENNA W/DOCUSATE (SENOKOT S) TABLET PO SCH ×2 (08:52→21:49)
[2017-03-29] MEDS: meTOprolol TARTRATE 25 MG (LOPRESSOR) TABLET PO SCH ×2 (08:52→21:50)
[2017-03-29] MEDS: BACLOFEN 10 MG (LIORESAL) TAB PO SCH ×3 (08:52→21:50)
[2017-03-29] MEDS: VANCOMYCIN 1500 MG/NS 500 ML IVPB IV SCH ×2 (08:52)
[2017-03-29] MEDS: POLYETHYLENE GLYCOL 17 GM (MIRALAX) PACK PO SCH ×2 (08:58→21:49)
[2017-03-29] MEDS: LACTULOSE SYRUP 10GM/15ML (ENULOSE) 30ML UDC PO SCH ×3 (09:00→21:49)
--- NOTE | 2017-03-29 09:51 | Progress Note-Hospitalist ---
Progress Note HPI/CC on Admission CC: Drainage from lumbar spinal surgical site HPI: This is a 61 yoWF pt of Brad Andrade known to me from [facility] admission for lumbar spine surgery on 03/01/17. Pt has had a very slow recovery and began having redness and drainage. Pt was started on Keflex in [place] [facility] Tuesday and seen by Dr. Villalta in his office yesterday. She was a direct admit to [facility]. PICC line was placed and pt was empirically started on Vanc and Cefepime. WBC 7.7, Hgb 7.0, ESR 140, iron 12. 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 relationship advisor: Surgery today 1400 Patient Interview: Pt is experiencing severe pain Pt has not been able to ambulate because of the pain Physical exam stable. Lungs sound perfect Labs were discussed with the pt and she was informed that she will continue having iron treatments Pt has been having bowel movements Pt was informed that she will continue to antibiotics Pt states that she has not been comfortable and this has inhibited her movement. Pt states that she has been sticking to the bed Pt states that she has been sleeping well Scribed by Marion Miguel under the direct supervision of Dr. Cody. Progress Notes/Assess & Plan Date Seen 03/29/17 Time Seen by Provider: 09:00 Admission Dx/Process Assessment: Lumbar spine surgical site drainage and inflammation empirically covering with IV antibiotics POD # 16 in need of I&D today Slow recovery and overall chronic debilitation Obstructive sleep apnea noncompliant with the Pap Hiatal hernia GERD History of peptic ulcers Osteoarthritis next number diabetes mellitus Chronic heart murmur Iron deficiency anemia COPD Diagonsis/Assessment & Plan Spoke with spine surgery service and the plan is for placement due to the expected Long recovery Vancomycin necessitates 2 more weeks Patient minimally moving and talks a great deal about her inability to move so I expect an extended recovery time. Refuses to take bowel meds so no BM Pain medication has been minimized AFVSS, Pleasant, improved overall, talkative Tachycardic 92 regular no change to 3/6 murmur, CTAB no rales noted No edema Assessment: Lumbar spine surgical site drainage with Strep and Staph on IV antibiotics POD # 28 s/p I&D POD # 12 now with wound vac placement D # 8 but s/p I&D and drained pus collection POD # 5 with negative cultures Slow recovery and overall chronic debilitation but much improved working with PT today for the first time Obstructive sleep apnea noncompliant with CPAP Hiatal hernia GERD History of peptic ulcers Osteoarthritis Chronic heart murmur Iron deficiency anemia receiving iron infusions COPD Tachycardia likely due to deconditioning improved on BB DM improved when increased insulin yesterday Post op constipation resolved Lovenox for DVT Px Plan: Continue PT Continue antibiotics empiric coverage for 6 weeks total (4 more weeks) and follow up with final culture results but appear to be sterile Check labs in am IV iron to complete PT/OT Maintain Lopressor PO - Metoprolol 25 BID Lovenox to continue Bowel regimen to continue DC SSI and add Novolog 10 units before meals maintained [place] placement SARAH CODY DO Mar 29, 2017 09:51
--- NOTE | 2017-03-29 10:16 | Physical Therapy Daily Note ---
PT Daily Note-Current Subjective Patient is in bed and agrees to bed activity only. Adamantly declines OOB activity after much encouragement and education on importance of increasing activity level. Pain Numeric Pain Scale: 10-Worst Possible Pain Location: Lower Location Body Site: Back Pain Description: Stabbing, Burning, Sharp Mental Status Patient Orientation: Normal For Age Attachments: Drains, IV wound vac Transfers Functional [place] Measure 0=Not Assessed/NA 4=Minimal Assistance 1=Total Assistance 5=Supervision or Setup 2=Maximal Assistance 6=Modified [place] 3=Moderate Assistance 7=Complete IndependenceIRFPAI Quality Coding Scale 6 Independent with activity with or without an assistive device 5 Patient requires set up or clean up by helper. Patient completes activity by themselves 4 Supervision or touching assist (CGA). [place] provide cues , steadying assist 3 The helper provides less than half the effort to complete the activity 2 The helper provides more than half the effort to complete the activity 1 Dependent. The helper does all the effort to complete an activity 7 Patient refused to complete or attempt activity 9 The patient did not perform the activity before the current illness or injury 88 Not attempted due to Medical conditions or safety concerns Transfers (B, C, W/C) (FIM): 2 Scootin Rollin PT assist with draw sheet to reposition after bilateral LE exercises. PT encouraged patient to perform activities with SBA, however, the patient became agitated and refused to continue. Exercises Supine Ex: Ankle pumps, Quad Set, Heel Slides (to side; unable to lift LE's off of bed for AROM), Hip abd/add Supine Reps: 15 Assessment Exercises and bed mobility activity to increase activity level and improve strength with mobility. Patient continues to c/o uncontrolled back pain and appears, to this PT, to self limit functional activity. PT Wool Hat Forming Machine Tender Goals [place] Forming Machine Tender Goals PT Intermediate Goals Time Frame: Mar 25, 2017 Transfers (B,C,W/C) (FIM): 4 Gait (FIM): 1 Gait distance (FIM): 1=up to 49 ft Distance: 50' Gait Level of Assist: 5 Gait Assistive Device: FWW PT Plan Treatment/Plan Treatment Plan: Continue Plan of Care Treatment Plan: Bed Mobility, Education, Functional Activity [place], Functional Strength, Gait, Safety, Therapeutic Exercise, Transfers Treatment Duration: Apr 08, 2017 Visits Per Week: 6 Time/GCodes Time In: 945 Time Out: 1008 Total Billed Treatment Time: 23 Total Billed Treatment 1 visit EX 15 min FA 8 min MILAGROS BENEDICT PT Mar 29, 2017 10:16
--- NOTE | 2017-03-29 11:05 | Occupational Ther Daily Note ---
OT Current Status-Daily Note Subjective Pt seen in room, in bed, agreeable to UE exercises but not ADLs. "I'm too cold. " No pain mentioned. Appearance Alert, cooperative. Initially asleep but easily awakened Mental Status/Objective Functional [place] Measure 0=Not Assessed/NA 4=Minimal Assistance 1=Total Assistance 5=Supervision or Setup 2=Maximal Assistance 6=Modified [place] 3=Moderate Assistance 7=Complete [place] Other Treatment Pt declined sitting EOB for sponge bath but agreed to do UE ex. Pt was provided with yellow theraband (gentle resistance) and taught two different exercises, addressing shoulders and elbow extension (exercises to strengthen arms to help with sit to stand for transfers and ADLs). Pt did 10 reps bilat exercises and was able to track reps herself. She needed occasional skilled cues to dot the exercises correctly. Theraband left in room and pt encouraged to do exercises on her own, starting with 10 reps and increasing as she is able. Pt verbalized understanding. Pt left up in bed, all needs met. Education OT Patient Education: Exercise program, Purpose of tx/functional activities Teaching Recipient: Patient Teaching Methods: Demonstration, Discussion Response to Teaching: Verbalize Understanding, Return Demonstration, Reinforcement Needed OT Short Term Goals Short Term Goals 1=Demonstrate adherence to instructed precautions during ADL tasks. 2=Patient will verbalize/demonstrate understanding of assistive devices/ modifications for ADL. 3=Patient will improve strength/tolerance for activity to enable patient to perform ADL's. OT Medart Operator Goals Medart Operator Goals Time Frame: Apr 08, 2017 Eating (FIM): 6 Grooming(FIM): 6 Bathing(FIM): 6 Upper Body Dressing(FIM): 6 Lower Body Dressing(FIM): 6 Toileting(FIM): 6 Toilet/Commode Transfer(FIM): 6 Shower Transfer(FIM): 6 Additional Goals: 1-Demonstrate ADL Tasks, 2-Verbalize Understanding, 3- ImproveStrength/[place] 1=Demonstrate adherence to instructed precautions during ADL tasks. 2=Patient will verbalize/demonstrate understanding of assistive devices/ modifications for ADL. 3=Patient will improve strength/tolerance for activity to enable patient to perform ADL's. OT Education/Plan Problem List/Assessment Pt would benefit from skilled OT to increase her independence in basic self care to allow her to safely return home to live with her and to decrease caregiver burden. Discharge Recommendations Plan/Recommendations: Continue POC Treatment Plan/Plan of Care Patient would benefit from OT for education, treatment and training to promote independence in ADL's, mobility, safety and/or upper extremity function for ADL' s. Plan of Care: ADL Retraining, Functional Mobility, UE Funct Exercise/Act, UE Neuromus Re-Ed/Coord Treatment Duration: Apr 08, 2017 Visits Per Week: 5-6 Agreement: Yes Rehab Potential: Fair Time/GCodes Start Time: 10:35 Stop Time: 10:55 Total Time Billed (hr/min): 20 Billed Treatment Time visit, 20 minutes exercise PRATIK HARVEY OT Mar 29, 2017 11:05
[2017-03-29] MEDS: ENOXAPARIN 40 MG/0.4 ML (LOVENOX) SYR SC SCH (11:25)
[2017-03-29] MEDS: hydrOXYzine (VISTARIL) 25 MG CAP PO PRN ×2 (12:55→22:07)
[2017-03-29 15:29] VITALS: BP 163/75
[2017-03-29] MEDS: FERROUS SULF 325 MG (IRON) TAB PO SCH (21:49)
[2017-03-29] MEDS: inSUlin DETERMIR 1 UNIT/0.01 ML (LEVEMIR) CHARGE PER UNIT SQ SCH (22:06)
[2017-03-30] VITALS: BP 154/72
[2017-03-30] MEDS: HYDROcodone/APAP 7.5 MG/325 MG (LORTAB, LORCET PLUS) TABLET PO PRN ×4 (00:28→21:26)
[2017-03-30] MEDS: diphenhydrAMINE 50 MG/ML INJ (BENADRYL) IVP PRN ×2 (04:52→20:39)
--- NOTE | 2017-03-30 05:03 | Progress Note (SOAP) ---
Subjective Time Seen by Provider: 05:01 Subjective/Events-last exam s/p lumbar surgical site I&D Patient resting comfortably Review of Systems General: No Chills, No Night Sweats Gastrointestinal: No: Abdominal Pain Musculoskeletal: back pain, leg pain Objective Exam Vital Signs Date Time Temp Pulse Resp B/P (MAP) Pulse Ox O2 Delivery O2 Flow Rate FiO2 03/30/17 00:00 96.6 103 18 154/72 96 Room Air 03/29/17 21:00 Room Air 03/29/17 18:22 98.6 03/29/17 15:29 98.6 105 18 163/75 94 Room Air 03/29/17 13:32 96.8 03/29/17 12:55 96.8 03/29/17 08:00 Room Air 03/29/17 07:49 96.8 103 18 161/84 97 Room Air 03/29/17 05:43 97.3 I & O 03/30/17 07:00 Intake Total 2105 ml Output Total 1105 ml Balance 1000 ml Capillary Refill : Less Than 3 Seconds General Appearance: No Apparent Distress, WD/WN Respiratory: No Accessory Muscle Use, No Respiratory Distress Gastrointestinal: soft Extremity: Non Tender, No Calf Tenderness Neurologic/Psychiatric: Alert, Oriented x3, No Motor/Sensory Deficits, Normal Mood/Affect, player development executive II-XII Norm as Tested Skin: Other (Wound Vac in place, Deep drain with sero-sang output. No periwound erthema or induration) Results Lab Laboratory Tests 03/29/17 05:11: Glucometer 139H 03/29/17 10:53: Glucometer 104 03/29/17 15:31: Glucometer 277H 03/29/17 22:03: Glucometer 238H Microbiology 03/16/17 Blood Culture - Final, Complete No growth 03/16/17 MRSA Screen - Final, Complete MRSA not isolated 03/24/17 Gram Stain - Final, Complete 03/24/17 Anaerobic Culture - Final, Complete No growth 03/24/17 Surgical Culture - Final, Complete No growth Assessment/Plan Assessment/Plan Assess & Plan/Chief Complaint Lumbar surgical site infection Debilitation Patient is ready for discharge at this time Discharge arrangements pending Patient will require an additional 4 weeks of IV Vancomycin and wound vac changes Clinical Quality Measures DVT/VTE Risk/Contraindication: Risk Factor Score Per Nursin RFS Level Per Nursing on Admit: 4+=Very High Contraindications-Pharm: Other *list below* Other: needs surgery ETHAN LAM Mar 30, 2017 05:03
[2017-03-30] MEDS: inSUlin ASPART (NovoLOG) 1 UNIT/0.01 ML (CHARGE PER UNIT) SC SCH ×3 (06:41→16:09)
[2017-03-30] MEDS ORDERED: TROUGH ORDER-PHARMACY XX NR (07:30)
[2017-03-30 07:59] VITALS: BP 148/84
[2017-03-30] MEDS: meTOprolol TARTRATE 25 MG (LOPRESSOR) TABLET PO SCH ×2 (08:13→20:33)
[2017-03-30] MEDS: LACTULOSE SYRUP 10GM/15ML (ENULOSE) 30ML UDC PO SCH ×3 (08:14→20:38)
[2017-03-30] MEDS: POLYETHYLENE GLYCOL 17 GM (MIRALAX) PACK PO SCH ×2 (08:14→20:38)
[2017-03-30] MEDS: SENNA W/DOCUSATE (SENOKOT S) TABLET PO SCH ×2 (08:14→20:34)
[2017-03-30] MEDS: BACLOFEN 10 MG (LIORESAL) TAB PO SCH ×3 (08:14→20:33)
[2017-03-30] MEDS: ALPRAZolam 0.25 MG (XANAX) TAB PO PRN ×2 (08:21→19:26)
--- NOTE | 2017-03-30 09:06 | Occupational Ther Daily Note ---
OT Current Status-Daily Note Subjective Pt alert, lying in bed. Pt stated that they had just given her something that is going to make her loopy and fall asleep. Pt agreed to arm exercises and declined any hygiene tasks. Pt c/o pain from L hip to foot. Pt c/o about that the medicine made her too loopy and she couldn't function and move around, that no one would listen to her. Mental Status/Objective Functional [place] Measure 0=Not Assessed/NA 4=Minimal Assistance 1=Total Assistance 5=Supervision or Setup 2=Maximal Assistance 6=Modified [place] 3=Moderate Assistance 7=Complete [place] Other Treatment Pt completed UE exercises with yellow theraband. Pt complained of L LE pain throughout exercises. Did not c/o back or shldr pain. Pt continued to c/o about meds and hospital staff throughout treatment. Pt was able to demonstrated good UE AROM though could not keep track of reps. Pt required assistance to remember UE exercises given to her previously. After therapy, pt lying in bed with call light/phone in reach. All needs met in room. OT Short Term Goals Short Term Goals 1=Demonstrate adherence to instructed precautions during ADL tasks. 2=Patient will verbalize/demonstrate understanding of assistive devices/ modifications for ADL. 3=Patient will improve strength/tolerance for activity to enable patient to perform ADL's. OT Critical Care Registered Nurse Goals Longterm Goals Time Frame: Apr 08, 2017 Eating (FIM): 6 Grooming(FIM): 6 Bathing(FIM): 6 Upper Body Dressing(FIM): 6 Lower Body Dressing(FIM): 6 Toileting(FIM): 6 Toilet/Commode Transfer(FIM): 6 Shower Transfer(FIM): 6 Additional Goals: 1-Demonstrate ADL Tasks, 2-Verbalize Understanding, 3- ImproveStrength/[place] 1=Demonstrate adherence to instructed precautions during ADL tasks. 2=Patient will verbalize/demonstrate understanding of assistive devices/ modifications for ADL. 3=Patient will improve strength/tolerance for activity to enable patient to perform ADL's. OT Education/Plan Problem List/Assessment Pt would benefit from skilled OT to increase her independence in basic self care to allow her to safely return home to live with her and to decrease caregiver burden. Discharge Recommendations Plan/Recommendations: Continue POC Treatment Plan/Plan of Care Patient would benefit from OT for education, treatment and training to promote independence in ADL's, mobility, safety and/or upper extremity function for ADL' s. Plan of Care: ADL Retraining, Functional Mobility, UE Funct Exercise/Act, UE Neuromus Re-Ed/Coord Treatment Duration: Apr 08, 2017 Visits Per Week: 5-6 Agreement: Yes Rehab Potential: Fair Time/GCodes Start Time: 08:45 Stop Time: 09:00 Total Time Billed (hr/min): 15 Billed Treatment Time 1 visit-EX 1 (15 min) SERJIO MCKEON Mar 30, 2017 09:06
[2017-03-30] MEDS: VANCOMYCIN 1500 MG/NS 500 ML IVPB IV SCH ×2 (09:32)
--- NOTE | 2017-03-30 10:30 | Progress Note-Hospitalist ---
Progress Note HPI/CC on Admission CC: Drainage from lumbar spinal surgical site HPI: This is a 61 yoWF pt of Brad Andrade known to me from [facility] admission for lumbar spine surgery on 03/01/17. Pt has had a very slow recovery and began having redness and drainage. Pt was started on Keflex in [place] [facility] Tuesday and seen by Dr. Villalta in his office yesterday. She was a direct admit to [facility]. PICC line was placed and pt was empirically started on Vanc and Cefepime. WBC 7.7, Hgb 7.0, ESR 140, iron 12. 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 consumer insights specialist: Surgery today 1400 Patient Interview: Pt is experiencing severe pain Pt has not been able to ambulate because of the pain Physical exam stable. Lungs sound perfect Labs were discussed with the pt and she was informed that she will continue having iron treatments Pt has been having bowel movements Pt was informed that she will continue to antibiotics Pt states that she has not been comfortable and this has inhibited her movement. Pt states that she has been sticking to the bed Pt states that she has been sleeping well Scribed by Marion Miguel under the direct supervision of Dr. Cody. Progress Notes/Assess & Plan Date Seen 03/30/17 Time Seen by Provider: 10:00 Admission Dx/Process Assessment: Lumbar spine surgical site drainage and inflammation empirically covering with IV antibiotics POD # 16 in need of I&D today Slow recovery and overall chronic debilitation Obstructive sleep apnea noncompliant with the Pap Hiatal hernia GERD History of peptic ulcers Osteoarthritis next number diabetes mellitus Chronic heart murmur Iron deficiency anemia COPD Diagonsis/Assessment & Plan Chart Review: Vitals stable Pharmacy Review: Pt has not had any new medication that she did not previously had consumer insights specialist: Pt was given Xanax Pt has been refusing PT BP around 90 SW Review: We are waiting for insurance approval Patient Interview: Pt states that she feels sore and that it has inhibited her movement Pt has had BMs Physical exam stable. Lungs sound perfect. [place] candidacy was discussed with pt and she was informed that there is still some work to do with insurance. Pt states that she does not remember seeing Flo form [place] yesterday. Pt feels that her medication is causing her to be forgetful. Pt was informed that I will discuss her medication with the pharmacist. Pt was encouraged to ambulate and continue PT. Spoke with spine surgery service and the plan is for placement due to the expected Long recovery Vancomycin necessitates 2 more weeks Patient minimally moving and talks a great deal about her inability to move so I expect an extended recovery time. Refuses to take bowel meds so no BM Pain medication has been minimized AFVSS, Pleasant, improved overall, talkative Tachycardic 92 regular no change to 3/6 murmur, CTAB no rales noted No edema Assessment: Lumbar spine surgical site drainage with Strep and Staph on IV antibiotics POD # 29 s/p I&D POD # 13 now with wound vac placement D # 9 but s/p I&D and drained pus collection POD # 6 with negative cultures Slow recovery and overall chronic debilitation but much improved working with PT minimally Obstructive sleep apnea noncompliant with CPAP Hiatal hernia GERD History of peptic ulcers Osteoarthritis Chronic heart murmur Iron deficiency anemia receiving iron infusions COPD Tachycardia likely due to deconditioning improved on BB DM improved when increased insulin yesterday Post op constipation resolved Lovenox for DVT Px Plan: Continue antibiotics empiric coverage for 6 weeks total (4 more weeks) and follow up with final culture results but appear to be sterile Check labs in am IV iron to complete PT/OT Maintain Lopressor PO - Metoprolol 25 BID Lovenox to continue Bowel regimen to continue DC SSI and add Novolog 10 units before meals maintained [place] placement, waiting on insurance approval Social Work consult Scribed by Marion Miguel under the direct supervision of Dr. Cody. SARAH CODY DO Mar 30, 2017 10:30
--- NOTE | 2017-03-30 11:31 | Physical Therapy Daily Note ---
PT Daily Note-Current Subjective Pt laying on R side upon arrival. Pt reports 10/10 pain and that pain meds aren 't working. Pt reports that she hopes Dr Villalta will release her to discharge to another LTC facility today. Nurse cannot confirm if this will happen today. Pt agrees to limited Supine Ex for tx. Pain Numeric Pain Scale: 10-Worst Possible Pain Location: Incisional, Dorsal Location Body Site: Back Pain Description: Ache, Tightness, Cramping Mental Status Patient Orientation: Person, Place, Time, Situation Attachments: Drains, Other-See Comments (Wound Vac.), IV Transfers Functional [place] Measure 0=Not Assessed/NA 4=Minimal Assistance 1=Total Assistance 5=Supervision or Setup 2=Maximal Assistance 6=Modified [place] 3=Moderate Assistance 7=Complete IndependenceIRFPAI Quality Coding Scale 6 Independent with activity with or without an assistive device 5 Patient requires set up or clean up by helper. Patient completes activity by themselves 4 Supervision or touching assist (CGA). [place] provide cues , steadying assist 3 The helper provides less than half the effort to complete the activity 2 The helper provides more than half the effort to complete the activity 1 Dependent. The helper does all the effort to complete an activity 7 Patient refused to complete or attempt activity 9 The patient did not perform the activity before the current illness or injury 88 Not attempted due to Medical conditions or safety concerns Scootin Rollin Exercises Supine Ex: Ankle pumps, Rolling (For positional purposes), Heel Slides, Scooting (For positional purposes) Supine Reps: 10 Treatments Pt and PT engage in pt ed. over benefits of Therapy, pt's surgery history and problems pt has encountered. Pt then ask to be rolled using sheet to position. Pt then completed Supine Ex before stating in pain without relief. PT discontinued more Ex and pt is laying Supine in bed with all needs met at end of tx. Assessment Current Status: Fair Progress Pt able to complete some Supine Ex although reports increase in pain during tx and can't get comfortable. PT Commercial Construction Project Manager Goals Commercial Construction Project Manager Goals PT Commercial Construction Project Manager Goals Time Frame: Mar 25, 2017 Transfers (B,C,W/C) (FIM): 4 Gait (FIM): 1 Gait distance (FIM): 1=up to 49 ft Distance: 50' Gait Level of Assist: 5 Gait Assistive Device: FWW PT Plan Problem List Problem List: Activity Tolerance, Functional Strength, Safety, Balance, Gait, Transfer, Bed Mobility Treatment/Plan Treatment Plan: Continue Plan of Care Treatment Plan: Bed Mobility, Education, Functional Activity [place], Functional Strength, Gait, Safety, Therapeutic Exercise, Transfers Treatment Duration: Apr 08, 2017 Visits Per Week: 6 Safety Risks/Education Patient Education: Correct Positioning, Disease Process, Safety Issues Teaching Recipient: Patient Teaching Methods: Discussion Response to Teaching: Verbalize Understanding Time/GCodes Time In: 1035 Time Out: 1105 Total Billed Treatment Time: 30 Total Billed Treatment visit, FA (15m) & EX (15m) TRU VIRAMONTES PTA Mar 30, 2017 11:31
[2017-03-30] MEDS: ENOXAPARIN 40 MG/0.4 ML (LOVENOX) SYR SC SCH (12:58)
[2017-03-30 15:36] VITALS: BP 158/74
[2017-03-30] MEDS: ONDANSETRON 4 MG/2 ML (SDV) Z0FRAN IVP PRN (20:31)
[2017-03-30] MEDS: FERROUS SULF 325 MG (IRON) TAB PO SCH (20:33)
[2017-03-30] MEDS: inSUlin DETERMIR 1 UNIT/0.01 ML (LEVEMIR) CHARGE PER UNIT SQ SCH (20:38)
[2017-03-31] VITALS: BP 160/87
[2017-03-31] MEDS: diphenhydrAMINE 50 MG/ML INJ (BENADRYL) IVP PRN (01:51)
[2017-03-31] MEDS: HYDROcodone/APAP 7.5 MG/325 MG (LORTAB, LORCET PLUS) TABLET PO PRN ×3 (03:31→16:36)
[2017-03-31] MEDS: ALPRAZolam 0.25 MG (XANAX) TAB PO PRN ×2 (05:17→16:38)
[2017-03-31] MEDS: hydrOXYzine (VISTARIL) 25 MG CAP PO PRN ×2 (06:01→16:37)
[2017-03-31] MEDS: inSUlin ASPART (NovoLOG) 1 UNIT/0.01 ML (CHARGE PER UNIT) SC SCH ×3 (06:01→19:02)
[2017-03-31 08:00] VITALS: BP 138/82
[2017-03-31] MEDS: meTOprolol TARTRATE 25 MG (LOPRESSOR) TABLET PO SCH ×2 (09:45→21:41)
[2017-03-31] MEDS: BACLOFEN 10 MG (LIORESAL) TAB PO SCH ×3 (09:45→21:41)
[2017-03-31] MEDS: LACTULOSE SYRUP 10GM/15ML (ENULOSE) 30ML UDC PO SCH ×3 (09:45→21:42)
[2017-03-31] MEDS: POLYETHYLENE GLYCOL 17 GM (MIRALAX) PACK PO SCH ×2 (09:46→21:42)
[2017-03-31] MEDS: SENNA W/DOCUSATE (SENOKOT S) TABLET PO SCH ×2 (09:46→21:42)
[2017-03-31] MEDS: VANCOMYCIN 1500 MG/NS 500 ML IVPB IV SCH ×2 (10:12)
[2017-03-31 10:26] LABS: BASOPHILS # (AUTO) 0.1 10^3/uL (0.0-0.1); BASOPHILS % (AUTO) 1 % (0-10); EOSINOPHILS # (AUTO) 0.8 10^3/uL (0.0-0.3); EOSINOPHILS % (AUTO) 12 % (0-10); LYMPHOCYTES # (AUTO) 1.1 X 10^3 (1.0-4.0); LYMPHOCYTES % (AUTO) 17 % (12-44); MEAN CORPUSCULAR HEMOGLOBIN 27 PG (25-34); MEAN CORPUSCULAR HGB CONC 30 G/DL (32-36); MEAN CORPUSCULAR VOLUME 90 FL (80-99); MEAN PLATELET VOLUME 9.1 FL (7.4-10.4); MONOCYTES # (AUTO) 0.8 X 10^3 (0.0-1.0); MONOCYTES % (AUTO) 12 % (0-12); NEUTROPHILS # (AUTO) 3.8 X 10^3 (1.8-7.8); NEUTROPHILS % (AUTO) 58 % (42-75); PLATELET COUNT 343 10^3/uL (130-400); RED BLOOD COUNT 3.84 10^6/uL (4.35-5.85); RED CELL DISTRIBUTION WIDTH 14.3 % (10.0-14.5); WHITE BLOOD COUNT 6.5 10^3/uL (4.3-11.0)
--- NOTE | 2017-03-31 10:30 | Progress Note-Hospitalist ---
Progress Note HPI/CC on Admission CC: Drainage from lumbar spinal surgical site HPI: This is a 61 yoWF pt of Brad Andrade known to me from [facility] admission for lumbar spine surgery on 03/01/17. Pt has had a very slow recovery and began having redness and drainage. Pt was started on Keflex in [place] [facility] Tuesday and seen by Dr. Villalta in his office yesterday. She was a direct admit to [facility]. PICC line was placed and pt was empirically started on Vanc and Cefepime. WBC 7.7, Hgb 7.0, ESR 140, iron 12. 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 excellence consultant: Surgery today 1400 Patient Interview: Pt is experiencing severe pain Pt has not been able to ambulate because of the pain Physical exam stable. Lungs sound perfect Labs were discussed with the pt and she was informed that she will continue having iron treatments Pt has been having bowel movements Pt was informed that she will continue to antibiotics Pt states that she has not been comfortable and this has inhibited her movement. Pt states that she has been sticking to the bed Pt states that she has been sleeping well Scribed by Marion Miguel under the direct supervision of Dr. Cody. Progress Notes/Assess & Plan Date Seen 03/31/17 Time Seen by Provider: 09:30 Admission Dx/Process Assessment: Lumbar spine surgical site drainage and inflammation empirically covering with IV antibiotics POD # 16 in need of I&D today Slow recovery and overall chronic debilitation Obstructive sleep apnea noncompliant with the Pap Hiatal hernia GERD History of peptic ulcers Osteoarthritis next number diabetes mellitus Chronic heart murmur Iron deficiency anemia COPD Diagonsis/Assessment & Plan excellence consultant: Pt is going to receive pain meds Pt was encouraged to ambulate Pt rates her pain at a 10 SW Review: Flo will be here today for Neb[place] placement Patient Interview: Physical exam stable Pt was informed that she will have her labs rechecked Pt was given pain meds during interview. Pt would like more pain medication than she is receiving; she asked if Yarien would allow her to receive more pain meds SW Review: We are waiting for insurance approval AFVSS, Pleasant, improved overall, talkative Tachycardic 92 regular no change to 3/6 murmur, CTAB no rales noted No edema Assessment: Lumbar spine surgical site drainage with Strep and Staph on IV antibiotics POD # 30 s/p I&D POD # 14 now with wound vac placement D # 10 but s/p I&D and drained pus collection POD # 7 with negative cultures Slow recovery and overall chronic debilitation but much improved working with PT minimally Obstructive sleep apnea noncompliant with CPAP Hiatal hernia GERD History of peptic ulcers Osteoarthritis Chronic heart murmur Iron deficiency anemia receiving iron infusions COPD Tachycardia likely due to deconditioning improved on BB DM improved when increased insulin yesterday Post op constipation resolved Lovenox for DVT Px Plan: Continue antibiotics empiric coverage for 6 weeks total (3.5 more weeks) with final culture results were sterile abscess Check labs now IV iron completed PT/OT if she allows Maintain Lopressor PO - Metoprolol 25 BID Lovenox to continue Bowel regimen to continue DC SSI and add Novolog 10 units before meals maintained [place] placement, waiting on insurance approval Social Work consult Nebo Scribed by Marion Miguel under the direct supervision of Dr. Cody. SARAH CODY DO Mar 31, 2017 10:30
[2017-03-31 10:46] LABS: ALANINE AMINOTRANSFERASE 18 U/L (0-55); ALBUMIN 3.3 GM/DL (3.2-4.5); ANION GAP 12 MMOL/L (5-14); ASPARTATE AMINO TRANSFERASE 15 U/L (5-34); BILIRUBIN,TOTAL 0.4 MG/DL (0.1-1.0); BLOOD UREA NITROGEN 7 MG/DL (7-18); BUN/CREATININE RATIO 10 (0-20); CALCIUM 9.5 MG/DL (8.5-10.1); CARBON DIOXIDE 24 MMOL/L (21-32); CHLORIDE 105 MMOL/L (98-107); CREATININE SERUM 0.72 MG/DL (0.60-1.30); GFR ESTIMATED > 60; GLUCOSE 130 MG/DL (70-105); HEMOLYSIS 9 (0-29); ICTERUS 0.3 (0-1.9); LIPEMIA -3 (0-49); POTASSIUM 3.9 MMOL/L (3.6-5.0); SODIUM 141 MMOL/L (135-145); TOTAL PROTEIN 6.5 GM/DL (6.4-8.2)
--- NOTE | 2017-03-31 11:18 | Physical Therapy Daily Note ---
PT Daily Note-Current Subjective Patient is in bed and talks about how much she does when we are not in the room. PT encouraged patient to actively participate with OOB activity, however , patient adamantly declined. Pain Numeric Pain Scale: 10-Worst Possible Pain Location: Medial, Lower Location Body Site: Back Pain Description: Sharp Mental Status Patient Orientation: Normal For Age Attachments: Drains, Posey Catheter, IV wound vac Transfers Functional [place] Measure 0=Not Assessed/NA 4=Minimal Assistance 1=Total Assistance 5=Supervision or Setup 2=Maximal Assistance 6=Modified [place] 3=Moderate Assistance 7=Complete IndependenceIRFPAI Quality Coding Scale 6 Independent with activity with or without an assistive device 5 Patient requires set up or clean up by helper. Patient completes activity by themselves 4 Supervision or touching assist (CGA). [place] provide cues , steadying assist 3 The helper provides less than half the effort to complete the activity 2 The helper provides more than half the effort to complete the activity 1 Dependent. The helper does all the effort to complete an activity 7 Patient refused to complete or attempt activity 9 The patient did not perform the activity before the current illness or injury 88 Not attempted due to Medical conditions or safety concerns Transfers (B, C, W/C) (FIM): 4 Scootin Rollin assist to initiate left LE movement, however, patient is able to perform this task independently Assessment Patient continues to appear to be limited by back pain and will not participate with OOB activities to improve current LOF and condition. Much education with patient has been provided on possible negative side effects if she continues to remain in bed. Patient reports she is doing as much as she can. Physician and nursing are aware of patient's participation level with therapy. PT Electric Motor Tester Assembler Goals Half-Way Goals PT Electric Motor Tester Assembler Goals Time Frame: Mar 25, 2017 Transfers (B,C,W/C) (FIM): 4 Gait (FIM): 1 Gait distance (FIM): 1=up to 49 ft Distance: 50' Gait Level of Assist: 5 Gait Assistive Device: FWW PT Plan Treatment/Plan Treatment Plan: Continue Plan of Care Treatment Plan: Bed Mobility, Education, Functional Activity [place], Functional Strength, Gait, Safety, Therapeutic Exercise, Transfers Treatment Duration: Apr 08, 2017 Visits Per Week: 6 Safety Risks/Education Patient Education: Disease Process, Safety Issues Teaching Recipient: Patient Teaching Methods: Discussion Response to Teaching: Reinforcement Needed Time/GCodes Time In: 1015 Time Out: 1030 Total Billed Treatment Time: 15 Total Billed Treatment 1 visit FA 15 min MILAGROS BENEDICT PT Mar 31, 2017 11:18
--- NOTE | 2017-03-31 11:53 | Occupational Ther Daily Note ---
OT Current Status-Daily Note Subjective Pt lying in bed and alert. BEAN asked pt to complete sponge bath or sit on EOB. Pt stated that she typically takes a bath at night. Then stated that she would start to itch if she washed up because she can never get dry enough and her skin would start to it. Then stated that if she could get to her purse and get more tylenol so she would have enough pain meds in her that she would hurt when she moved. BEAN discussed with pt the issues about lying in bed all the time. Pt stated how much she did in bed and would continued to move around and that would be enough. Pt also stated that no one knew or understood how much medicine she took at home so she could function without pain. Mental Status/Objective Functional [place] Measure 0=Not Assessed/NA 4=Minimal Assistance 1=Total Assistance 5=Supervision or Setup 2=Maximal Assistance 6=Modified [place] 3=Moderate Assistance 7=Complete [place] Other Treatment While pt was talking about her situation pt completed UE theraband exercises. Pt demonstrated good AROM and strength with arms when using yellow theraband. Pt did not c/o pain or become SOA or fatigued with exercises. After therapy, pt lying in bed with call light/phone in reach. All needs met in room. OT Short Term Goals Short Term Goals 1=Demonstrate adherence to instructed precautions during ADL tasks. 2=Patient will verbalize/demonstrate understanding of assistive devices/ modifications for ADL. 3=Patient will improve strength/tolerance for activity to enable patient to perform ADL's. OT Housekeeping Staff Goals Housekeeping Staff Goals Time Frame: Apr 08, 2017 Eating (FIM): 6 Grooming(FIM): 6 Bathing(FIM): 6 Upper Body Dressing(FIM): 6 Lower Body Dressing(FIM): 6 Toileting(FIM): 6 Toilet/Commode Transfer(FIM): 6 Shower Transfer(FIM): 6 Additional Goals: 1-Demonstrate ADL Tasks, 2-Verbalize Understanding, 3- ImproveStrength/[place] 1=Demonstrate adherence to instructed precautions during ADL tasks. 2=Patient will verbalize/demonstrate understanding of assistive devices/ modifications for ADL. 3=Patient will improve strength/tolerance for activity to enable patient to perform ADL's. OT Education/Plan Problem List/Assessment Pt would benefit from skilled OT to increase her independence in basic self care to allow her to safely return home to live with her and to decrease caregiver burden. Discharge Recommendations Plan/Recommendations: Continue POC Treatment Plan/Plan of Care Patient would benefit from OT for education, treatment and training to promote independence in ADL's, mobility, safety and/or upper extremity function for ADL' s. Plan of Care: ADL Retraining, Functional Mobility, UE Funct Exercise/Act, UE Neuromus Re-Ed/Coord Treatment Duration: Apr 08, 2017 Visits Per Week: 5-6 Agreement: Yes Rehab Potential: Fair Time/GCodes Start Time: 11:30 Stop Time: 11:45 Total Time Billed (hr/min): 15 Billed Treatment Time 1 visit-EX 1 (15 min) SERJIO MCKEON Mar 31, 2017 11:53
--- OUTSIDE RECORDS SUMMARY | 2017-03-31 13:22 | XMS REPORT | Continuity of Care Document ---
Author Author [facility] Organization [facility] Address Unknown Phone Unavailable Allergies Medications Problems Procedures Results Encounters ACCT No. Visit Date/Time Discharge Status Pt. Type Provider Facility Loc./Unit Complaint [id number] 05/26/2015 22:03:06 05/26/2015 23: 59:59 MICHEL Outpatient LACIE THOMAS [id number] 11/25/2014 16:03:07 11/25/2014 23: 59:59 MICHEL Outpatient LACIE THOMAS [id number] 10/14/2014 09:18:42 10/14/2014 23: 59:59 CLS Outpatient LACIE THOMAS [id number] 03/28/2014 09:48:33 03/28/2014 23: 59:59 CLS Outpatient LACIE THOMAS [id number] 12/31/2013 10:26:55 12/31/2013 23: 59:59 CLS Outpatient LACIE THOMAS [id number] 11/29/2013 16:20:59 11/29/2013 23: 59:59 CLS Outpatient LACIE THOMAS [id number] 10/23/2013 09:23:06 10/23/2013 23: 59:59 CLS Outpatient LACIE THOMAS [id number] 12/23/2016 15:54:14 ACT Outpatient LACIE THOMAS [id number] 12/09/2016 10:12:34 ACT Outpatient LACIE THOMAS [id number] 08/26/2016 15:51:17 ACT Outpatient LACIE THOMAS [id number] 08/24/2016 09:51:31 ACT Outpatient LACIE THOMAS [id number] 08/17/2016 14:51:42 ACT Outpatient LACIE THOMAS [id number] 05/24/2016 14:19:05 CHARU Outpatient LACIE THOMAS [id number] 11/24/2015 16:03:26 CHARU Outpatient LACIE THOMAS [id number] 10/23/2015 08:58:11 CHARU Outpatient LACIE THOMAS
[2017-03-31] MEDS: ENOXAPARIN 40 MG/0.4 ML (LOVENOX) SYR SC SCH (14:22)
[2017-03-31 16:00] VITALS: BP 151/85
[2017-03-31] MEDS: FERROUS SULF 325 MG (IRON) TAB PO SCH (21:41)
[2017-03-31] MEDS: inSUlin DETERMIR 1 UNIT/0.01 ML (LEVEMIR) CHARGE PER UNIT SQ SCH (21:42)
[2017-03-31 21:43] VITALS: BP 144/77
[2017-04-01] VITALS: BP 137/78
[2017-04-01] MEDS: HYDROcodone/APAP 7.5 MG/325 MG (LORTAB, LORCET PLUS) TABLET PO PRN ×3 (00:47→12:43)
[2017-04-01] MEDS: hydrOXYzine (VISTARIL) 25 MG CAP PO PRN ×2 (00:48→11:27)
[2017-04-01] MEDS: inSUlin ASPART (NovoLOG) 1 UNIT/0.01 ML (CHARGE PER UNIT) SC SCH ×2 (07:04→12:43)
[2017-04-01 08:00] VITALS: BP 160/89
[2017-04-01] MEDS: LACTULOSE SYRUP 10GM/15ML (ENULOSE) 30ML UDC PO SCH ×2 (09:00→13:22)
[2017-04-01] MEDS: meTOprolol TARTRATE 25 MG (LOPRESSOR) TABLET PO SCH (09:19)
[2017-04-01] MEDS: SENNA W/DOCUSATE (SENOKOT S) TABLET PO SCH (09:19)
[2017-04-01] MEDS: BACLOFEN 10 MG (LIORESAL) TAB PO SCH ×2 (09:19→13:28)
[2017-04-01] MEDS: VANCOMYCIN 1500 MG/NS 500 ML IVPB IV SCH ×2 (09:20)
--- NOTE | 2017-04-01 10:35 | Progress Note-Hospitalist ---
Progress Note HPI/CC on Admission CC: Drainage from lumbar spinal surgical site HPI: This is a 61 yoWF pt of Brad Andrade known to me from [facility] admission for lumbar spine surgery on 03/01/17. Pt has had a very slow recovery and began having redness and drainage. Pt was started on Keflex in [place] ER Tuesday and seen by Dr. Villalta in his office yesterday. She was a direct admit to [facility]. PICC line was placed and pt was empirically started on Vanc and Cefepime. WBC 7.7, Hgb 7.0, ESR 140, iron 12. 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 exchange trouble shooter: Surgery today 1400 Patient Interview: Pt is experiencing severe pain Pt has not been able to ambulate because of the pain Physical exam stable. Lungs sound perfect Labs were discussed with the pt and she was informed that she will continue having iron treatments Pt has been having bowel movements Pt was informed that she will continue to antibiotics Pt states that she has not been comfortable and this has inhibited her movement. Pt states that she has been sticking to the bed Pt states that she has been sleeping well Scribed by Marion Miguel under the direct supervision of Dr. Cody. Progress Notes/Assess & Plan Date Seen 04/01/17 Time Seen by Provider: 09:40 Admission Dx/Process Assessment: Lumbar spine surgical site drainage and inflammation empirically covering with IV antibiotics POD # 16 in need of I&D today Slow recovery and overall chronic debilitation Obstructive sleep apnea noncompliant with the Pap Hiatal hernia GERD History of peptic ulcers Osteoarthritis next number diabetes mellitus Chronic heart murmur Iron deficiency anemia COPD Diagonsis/Assessment & Plan Patient Interview: Pt states that she has been wiggling a little bit Physical exam stable Pt ate prior to interview Pt was informed that we are still waiting on insurance. Pt states that she talked to Flo yesterday. SW Review: We are waiting for insurance approval AFVSS, Pleasant, improved overall RRR no change to 3/6 murmur, CTAB no rales noted No edema Assessment: Lumbar spine surgical site drainage with Strep and Staph on IV antibiotics POD # 31 s/p I&D POD # 15 now with wound vac placement D # 11 but s/p I&D and drained pus collection POD # 8 with negative cultures Slow recovery and overall chronic debilitation but much improved working with PT minimally Obstructive sleep apnea noncompliant with CPAP Hiatal hernia GERD History of peptic ulcers Osteoarthritis Chronic heart murmur Iron deficiency anemia receiving iron infusions COPD Tachycardia likely due to deconditioning improved on BB DM improved when increased insulin yesterday Post op constipation resolved Lovenox for DVT Px Plan: Continue antibiotics empiric coverage for 6 weeks total (3.5 more weeks) with final culture results were sterile abscess IV iron completed PT/OT if she allows Maintain Lopressor PO - Metoprolol 25 BID Lovenox to continue Bowel regimen to continue DC SSI and add Novolog 10 units before meals maintained [place] placement, waiting on insurance approval Social Work consult Heel protectors Scribed by Marion Miguel under the direct supervision of Dr. Cody. SARAH CODY DO Apr 01, 2017 10:35
--- NOTE | 2017-04-01 11:15 | Physical Therapy Daily Note ---
PT Daily Note-Current Subjective Patient attempts to talk PT out of treatment, however, this PT highly encouraged patient to perform OOB activities. Patient reluctantly agrees. Pain Numeric Pain Scale: 10-Worst Possible Pain Location: Lower Location Body Site: Back Pain Description: Pressure, Sharp Mental Status Patient Orientation: Normal For Age Attachments: Posey Catheter, IV wound vac to lower back Transfers Functional [place] Measure 0=Not Assessed/NA 4=Minimal Assistance 1=Total Assistance 5=Supervision or Setup 2=Maximal Assistance 6=Modified [place] 3=Moderate Assistance 7=Complete IndependenceIRFPAI Quality Coding Scale 6 Independent with activity with or without an assistive device 5 Patient requires set up or clean up by helper. Patient completes activity by themselves 4 Supervision or touching assist (CGA). [place] provide cues , steadying assist 3 The helper provides less than half the effort to complete the activity 2 The helper provides more than half the effort to complete the activity 1 Dependent. The helper does all the effort to complete an activity 7 Patient refused to complete or attempt activity 9 The patient did not perform the activity before the current illness or injury 88 Not attempted due to Medical conditions or safety concerns Transfers (B, C, W/C) (FIM): 4 Scootin Rollin Supine to/from Sit: 4 Sit to/from Stand: 4 assist to initiate bilateral LE movement by applying heel cues patient able to sit EOB x 10 min stood with minimal assist x 5 min patient requires time with all bed mobility activity due to pain Assessment Patient is able to perform activity, however, self limits. This PT highly encourages patient to increase activity level with no success. PT Fat Purification Worker Goals Fat Purification Worker Goals PT Care Home Goals Time Frame: Mar 25, 2017 Transfers (B,C,W/C) (FIM): 4 Gait (FIM): 1 Gait distance (FIM): 1=up to 49 ft Distance: 50' Gait Level of Assist: 5 Gait Assistive Device: FWW PT Plan Treatment/Plan Treatment Plan: Continue Plan of Care Treatment Plan: Bed Mobility, Education, Functional Activity [place], Functional Strength, Gait, Safety, Therapeutic Exercise, Transfers Treatment Duration: Apr 08, 2017 Visits Per Week: 6 Safety Risks/Education Teaching Recipient: Patient Teaching Methods: Discussion Response to Teaching: Verbalize Understanding, Reinforcement Needed increasing activity Time/GCodes Time In: 1015 Time Out: 1040 Total Billed Treatment Time: 25 Total Billed Treatment 1 visit FA x 2 25 min MILAGROS BENEDICT PT Apr 01, 2017 11:15
--- NOTE | 2017-04-01 11:23 | Occupational Ther Daily Note ---
OT Current Status-Daily Note Subjective Pt is alert, lying in bed. Pt stated that she had just gotten finished with PT and was tired and in pain. BEAN did talk pt in to taking a sponge bath. Pt worried about getting dry and itching. Mental Status/Objective Patient Orientation: Person, Place, Time, Situation Functional Addison Measure 0=Not Assessed/NA 4=Minimal Assistance 1=Total Assistance 5=Supervision or Setup 2=Maximal Assistance 6=Modified Addison 3=Moderate Assistance 7=Complete Addison Attachments: Drains, Posey Catheter, IV ADL-Treatment After set up, pt was able to wash/dry upper body and under panniculus. Pt unable to reach curtis area/buttocks. Pt had a very difficulty time with rolling due to increase pain with any touch or movement. Pt was able to move shoulders then using bedrails was able to roll towards each side. Nrsg was notified that pt requested itch medicine and that her curtis area was red. After therapy, pt lying in bed with call light/phone in reach. All needs met in room. OT Short Term Goals Short Term Goals 1=Demonstrate adherence to instructed precautions during ADL tasks. 2=Patient will verbalize/demonstrate understanding of assistive devices/ modifications for ADL. 3=Patient will improve strength/tolerance for activity to enable patient to perform ADL's. OT [facility] Goals [facility] Goals Time Frame: Apr 08, 2017 Eating (FIM): 6 Grooming(FIM): 6 Bathing(FIM): 6 Upper Body Dressing(FIM): 6 Lower Body Dressing(FIM): 6 Toileting(FIM): 6 Toilet/Commode Transfer(FIM): 6 Shower Transfer(FIM): 6 Additional Goals: 1-Demonstrate ADL Tasks, 2-Verbalize Understanding, 3- ImproveStrength/[place] 1=Demonstrate adherence to instructed precautions during ADL tasks. 2=Patient will verbalize/demonstrate understanding of assistive devices/ modifications for ADL. 3=Patient will improve strength/tolerance for activity to enable patient to perform ADL's. OT Education/Plan Problem List/Assessment Pt would benefit from skilled OT to increase her independence in basic self care to allow her to safely return home to live with her and to decrease caregiver burden. Discharge Recommendations Plan/Recommendations: Continue POC Treatment Plan/Plan of Care Patient would benefit from OT for education, treatment and training to promote independence in ADL's, mobility, safety and/or upper extremity function for ADL' s. Plan of Care: ADL Retraining, Functional Mobility, UE Funct Exercise/Act, UE Neuromus Re-Ed/Coord Treatment Duration: Apr 08, 2017 Visits Per Week: 5-6 Agreement: Yes Rehab Potential: Fair Time/GCodes Start Time: 10:45 Stop Time: 11:15 Total Time Billed (hr/min): 30 Billed Treatment Time 1 visit-ADL 2 (30 min) SERJIO MCKEON Apr 01, 2017 11:23
[2017-04-01] MEDS: fentaNYL INJECTION 100 MCG/2 ML AMP ONE (11:45)
[2017-04-01] MEDS: POLYETHYLENE GLYCOL 17 GM (MIRALAX) PACK PO SCH (12:33)
[2017-04-01] MEDS: ENOXAPARIN 40 MG/0.4 ML (LOVENOX) SYR SC SCH (12:43)
[2017-04-01] MEDS ORDERED: HYDR-3781 PO (13:23)
[2017-04-01] MEDS ORDERED: LACT20SO2 PO (13:23)
[2017-04-01] MEDS ORDERED: ENOX40DI8 SC (13:23)
[2017-04-01] MEDS ORDERED: VANC1.5P16 IV (13:23)
[2017-04-01] MEDS ORDERED: ALPR0.254 PO (13:23)
[2017-04-01] MEDS ORDERED: POLY17PO23 PO (13:23)
[2017-04-01] MEDS ORDERED: METO-333 PO (13:23)
[2017-04-01] MEDS ORDERED: INSU100V16 SC (13:23)
--- NOTE | 2017-04-01 13:25 | Discharge Summary-Hospitalist ---
Diagnosis/Chief Complaint Date of Admission March 16, 2017 at 11:45 Date of Discharge Discharge Date: Apr 01, 2017 Admission Diagnosis Assessment: Lumbar spine surgical site drainage and inflammation empirically covering with IV antibiotics POD # 16 in need of I&D today Slow recovery and overall chronic debilitation Obstructive sleep apnea noncompliant with the Pap Hiatal hernia GERD History of peptic ulcers Osteoarthritis next number diabetes mellitus Chronic heart murmur Iron deficiency anemia COPD Discharge Diagnosis Assessment: Lumbar spine surgical site drainage with Strep and Staph on IV antibiotics POD # 31 s/p I&D POD # 15 now with wound vac placement D # 11 but s/p I&D and drained pus collection POD # 8 with negative cultures Slow recovery and overall chronic debilitation but much improved working with PT minimally Obstructive sleep apnea noncompliant with CPAP Hiatal hernia GERD History of peptic ulcers Osteoarthritis Chronic heart murmur Iron deficiency anemia receiving iron infusions COPD Tachycardia likely due to deconditioning improved on BB DM improved when increased insulin yesterday Post op constipation resolved Lovenox for DVT Px Patient Interview: Pt states that she has been wiggling a little bit Physical exam stable Pt ate prior to interview Pt was informed that we are still waiting on insurance. Pt states that she talked to Flo yesterday. SW Review: We are waiting for insurance approval AFVSS, [place], improved overall RRR no change to 3/6 murmur, CTAB no rales noted No edema Assessment: Lumbar spine surgical site drainage with Strep and Staph on IV antibiotics POD # 31 s/p I&D POD # 15 now with wound vac placement D # 11 but s/p I&D and drained pus collection POD # 8 with negative cultures Slow recovery and overall chronic debilitation but much improved working with PT minimally Obstructive sleep apnea noncompliant with CPAP Hiatal hernia GERD History of peptic ulcers Osteoarthritis Chronic heart murmur Iron deficiency anemia receiving iron infusions COPD Tachycardia likely due to deconditioning improved on BB DM improved when increased insulin yesterday Post op constipation resolved Lovenox for DVT Px Plan: Continue antibiotics empiric coverage for 6 weeks total (3.5 more weeks) with final culture results were sterile abscess IV iron completed PT/OT if she allows Maintain Lopressor PO - Metoprolol 25 BID Lovenox to continue Bowel regimen to continue DC SSI and add Novolog 10 units before meals maintained [place] placement, waiting on insurance approval Social Work consult Heel protectors Scribed by Marion Miguel under the direct supervision of Dr. Cody. Reason Hospital Visit/Course CC: Drainage from lumbar spinal surgical site HPI: This is a 61 yoWF pt of Brad Andrade known to me from [facility] admission for lumbar spine surgery on 03/01/17. Pt has had a very slow recovery and began having redness and drainage. Pt was started on Keflex in [place] ER Tuesday and seen by Dr. Villalta in his office yesterday. She was a direct admit to [facility]. PICC line was placed and pt was empirically started on Vanc and Cefepime. WBC 7.7, Hgb 7.0, ESR 140, iron 12. 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 pattern setter: Surgery today 1400 Patient Interview: Pt is experiencing severe pain Pt has not been able to ambulate because of the pain Physical exam stable. Lungs sound perfect Labs were discussed with the pt and she was informed that she will continue having iron treatments Pt has been having bowel movements Pt was informed that she will continue to antibiotics Pt states that she has not been comfortable and this has inhibited her movement. Pt states that she has been sticking to the bed Pt states that she has been sleeping well Scribed by Marion Miguel under the direct supervision of Dr. Cody. Hospital course: Patient a lengthy hospital course prior to be transferred to [facility] for wound care and slow recovery rehabilitation. She had a total of 2 surgeries to remove pustular drainage last revealed sterile abscess but wound VAC was placed and vancomycin was maintained per culture results. Overall patient had a very slow recovery was really unable to get up and around with physical therapy even after much encouragement and support from the staff. Very difficult situation that required long-term Hospital rehabilitation so we hope that she can respond to slow her physical therapy and wound VAC maintenance until she is able to return back home. Discharge Summary Discharge Physical Examination Allergies: Coded Allergies: cephalexin (Verified Allergy, Severe, RASH, 08/16/16) morphine (Verified Allergy, Severe, HIVES, 08/16/16) adhesive tape (Verified Allergy, Intermediate, 03/22/17) REDNESS/ITCHING Penicillins (Verified Allergy, Unknown, 08/16/16) Vitals & I&Os Vital Signs Date Time Temp Pulse Resp B/P (MAP) Pulse Ox O2 Delivery O2 Flow Rate FiO2 04/01/17 16:30 115 20 160/89 98 Room Air 95.00 04/01/17 13:21 98.6 Hospital Course Labs (last 24 hrs) Laboratory Tests 04/01/17 15:54: Glucometer 220H Microbiology 03/16/17 Blood Culture - Final, Complete No growth 03/16/17 MRSA Screen - Final, Complete MRSA not isolated 03/24/17 Gram Stain - Final, Complete 03/24/17 Anaerobic Culture - Final, Complete No growth 03/24/17 Surgical Culture - Final, Complete No growth Pending Labs Discharge Home Medications: Active Scripts Active Vanco 1.5 gm/150 ml-0.9% NaCl (Vancomycin/0.9 % Sod Chloride) 1.5 Gm/150 Ml Plast..bag 1.5 Gm IV DAILY 26 Days Novolog (Insulin Aspart) 100 Unit/1 Ml Susp 8 Unit SC 1100,1600 30 Days Polyethylene Glycol 3350 17 Gm Powd.pack 34 Gm PO BID 30 Days Lactulose 20 Gm/30 Ml Solution 10 Gm PO TID 30 Days Hydroxyzine Pamoate 25 Mg Capsule 25 Mg PO QID PRN 30 Days Alprazolam 0.25 Mg Tablet 0.25 Mg PO Q8H PRN 30 Days Metoprolol Tartrate 25 Mg Tablet 25 Mg PO BID 30 Days Enoxaparin Sodium 40 Mg/0.4 Ml Syringe 40 Mg SC Q24H 30 Days Reported Baclofen 10 Mg Tablet 10 Mg PO TID Hydrocodon-Acetaminophn 10-325 (Hydrocodone/Acetaminophen) 1 Each Tablet 1-2 Tab PO Q4H PRN Lantus (Insulin Glargine,Hum.rec.anlog) 100 Unit/1 Ml Vial 30 Unit SQ HS Instructions to patient/family Please see electonic discharge instructions given to patient. Clinical Quality Measures DVT/VTE Risk/Contraindication: Risk Factor Score Per Nursin RFS Level Per Nursing on Admit: 4+=Very High Contraindications-Pharm: Other *list below* Other: needs surgery SARAH CODY DO Apr 01, 2017 13:25
[2017-04-01 16:30] VITALS: BP 160/89
== END 2017-04-01 16:58 | DRG 863 ==
LOC: 4TH 11:45
PROVIDERS: ADMIT Orthopaedic Surgery Orthopaedic Surgery of the Spine; ATTEND Orthopaedic Surgery Orthopaedic Surgery of the Spine
PROC: 0WBL0ZX Excision of Lower Back, Open Approach, Diagnostic (ICD-10-PCS; principal; 2017-03-17 17:14)
PROC: 0WBL0ZX Excision of Lower Back, Open Approach, Diagnostic (ICD-10-PCS; 2017-03-24)
DX: T81.4XXA Infection following a procedure, initial encounter (principal); E66.01 Morbid (severe) obesity due to excess calories; Z68.42 Body mass index [BMI] 45.0-49.9, adult; J45.909 Unspecified asthma, uncomplicated; J44.9 Chronic obstructive pulmonary disease, unspecified; G47.33 Obstructive sleep apnea (adult) (pediatric); K21.9 Gastro-esophageal reflux disease without esophagitis; K44.9 Diaphragmatic hernia without obstruction or gangrene; D50.9 Iron deficiency anemia, unspecified; M19.90 Unspecified osteoarthritis, unspecified site; E11.649 Type 2 diabetes mellitus with hypoglycemia without coma; K59.09 Other constipation; B95.5 Unspecified streptococcus as the cause of diseases classified elsewhere; B95.8 Unspecified staphylococcus as the cause of diseases classified elsewhere; I35.8 Other nonrheumatic aortic valve disorders; R00.0 Tachycardia, unspecified; R53.81 Other malaise; Z79.4 Long term (current) use of insulin; Z91.19 Patient's noncompliance with other medical treatment and regimen; Z87.891 Personal history of nicotine dependence
CPT/HCPCS: 36415; 36569; 71010; 72131; 76937; 80048; 80053; 80061; 80202; 81000; 82962; 83540; 83605; 83735; 84443; 85007; 85025; 85027; 85652; 86141; 87040; 87070; 87075; 87081; 87205; 93005; 93306; 93970